=== PATIENT | female | born 1945 | race Caucasian/White ===

== ENCOUNTER 2020-08-17 10:40 | Outpatient (CLI) | payer OTHER, SELFPAY ==
[2020-08-17 11:07] LABS: Basophils Absolute Auto 0.1 K/mm3 (0.0-0.1); Basophils Percent Auto 0.6 % (0.2-1.2); Eosinophils Absolute Auto 0.1 K/mm3 (0-0.3); Eosinophils Percent Auto 0.8 % (0-4.4); Hematocrit 39.7 % (37.0-47.0); Hemoglobin 13.2 g/dL (12.0-15.0); Immature Granulocyte Absolute 0.01 K/mm3 (0.00-0.031); Immature Granulocyte Percent A 0.1 % (0-0.5); Lymphocytes Absolute Auto 3.12 K/mm3 (0.9-3.2); Lymphocytes Percent Auto 37.5 % (18.3-44.2); Mean Corpuscular HGB Conc 33.2 g/dl (32-36); Mean Corpuscular Hemoglobin 30.4 pg (26-34); Mean Corpuscular Volume 91.5 fl (80-100); Mean Platelet Volume 10.2 fl (7.4-10.4); Monocytes Absolute Auto 0.5 K/mm3 (0.1-0.6); Monocytes Percent Auto 5.4 % (2.6-8.5); Neutrophils Absolute Auto 4.6 K/mm3 (1.3-6.7); Neutrophils Percent Auto 55.6 % (45.5-73.1); Platelet Count Result 211 k/mm3 (150-375); Red Blood Count 4.34 M/mm3 (4.2-5.4); Red Cell Distribution Width 13.2 % (11.5-14.5); White Blood Count 8.3 K/mm3 (4.5-10.0)
[2020-08-17 11:20] LABS: Alanine Aminotransferase 17 U/L (4-35); Albumin Level 4.4 g/dL (3.5-5.1); Alkaline Phosphatase 84 U/L (38-126); Anion Gap 8 mmol/L (8-16); Aspartate Amino Transferase 28 U/L (14-36); Bilirubin,Total 0.5 mg/dL (0.2-1.3); Blood Urea Nitrogen 19 mg/dL (7-17); Calcium 9.1 mg/dL (8.4-10.2); Carbon Dioxide 27 mmol/L (22-30); Chloride 104 mmol/L (98-107); Cholesterol 187 mg/dL (0-200); Estimated Glomerular Filt Rate > 60; Glucose 106 mg/dL (65-105); HDL Direct 42 mg/dL; Potassium 4.5 mmol/L (3.4-5.0); Sodium 139 mmol/L (137-145); Triglycerides 346 mg/dL (<150)
[2020-08-17 11:32] LABS: LDL Cholesterol Direct 73 mg/dL
[2020-08-21 10:05] LABS: Vitamin D 1,25 (OH)2 Total 54 pg/mL (18-72); Vitamin D2 1,25 (OH)2 24 pg/mL; Vitamin D3 1,25 (OH)2 30 pg/mL
== END 2020-08-17 10:41 | disposition home or self-care (01) ==
PROVIDERS: PCP Family Medicine; Visit Provider Physician Assistant
DX: E78.2 Mixed hyperlipidemia (principal); I10 Essential (primary) hypertension; E55.9 Vitamin D deficiency, unspecified
CPT/HCPCS: 36415; 80053; 80061; 82652; 85025

== ENCOUNTER 2021-07-04 12:09 | Outpatient (CLI) | payer OTHER, SELFPAY ==
[2021-07-04 12:54] LABS: Basophils Absolute Auto 0.1 K/mm3 (0.0-0.1); Basophils Percent Auto 0.8 % (0.2-1.2); Eosinophils Percent Auto 0.5 % (0-4.4); Hematocrit 42.3 % (37.0-47.0); Hemoglobin 13.7 g/dL (12.0-15.0); Immature Granulocyte Absolute 0.02 K/mm3 (0.00-0.031); Immature Granulocyte Percent A 0.3 % (0-0.5); Lymphocytes Absolute Auto 1.94 K/mm3 (0.9-3.2); Lymphocytes Percent Auto 25.7 % (18.3-44.2); Mean Corpuscular HGB Conc 32.4 g/dl (32-36); Mean Corpuscular Hemoglobin 31.1 pg (26-34); Mean Corpuscular Volume 96.1 fl (80-100); Mean Platelet Volume 10.5 fl (7.4-10.4); Monocytes Absolute Auto 0.5 K/mm3 (0.1-0.6); Monocytes Percent Auto 6.6 % (2.6-8.5); Neutrophils Percent Auto 66.1 % (45.5-73.1); Platelet Count Result 188 k/mm3 (150-375); Red Cell Distribution Width 13.3 % (11.5-14.5); White Blood Count 7.5 K/mm3 (4.5-10.0)
[2021-07-04 13:08] LABS: Alanine Aminotransferase 18 U/L (4-35); Albumin Level 4.2 g/dL (3.5-5.1); Alkaline Phosphatase 77 U/L (38-126); Anion Gap 6 mmol/L (8-16); Aspartate Amino Transferase 29 U/L (14-36); Bilirubin,Total 0.4 mg/dL (0.2-1.3); Blood Urea Nitrogen 14 mg/dL (7-17); Carbon Dioxide 24 mmol/L (22-30); Chloride 108 mmol/L (98-107); Cholesterol 269 mg/dL (0-200); Estimated Glomerular Filt Rate > 60; Glucose 100 mg/dL (65-110); HDL Direct 59 mg/dL; Potassium 4.7 mmol/L (3.4-5.0); Sodium 138 mmol/L (137-145); Triglycerides 279 mg/dL (<150)
[2021-07-04 13:19] LABS: LDL Cholesterol Direct 127 mg/dL
[2021-07-07 09:54] LABS: Vitamin D 1,25 (OH)2 Total 45 pg/mL (18-72); Vitamin D2 1,25 (OH)2 <8 pg/mL; Vitamin D3 1,25 (OH)2 45 pg/mL
== END 2021-07-04 12:10 | disposition home or self-care (01) ==
PROVIDERS: PCP Family Medicine; Visit Provider Physician Assistant
DX: E78.2 Mixed hyperlipidemia (principal); F33.1 Major depressive disorder, recurrent, moderate; F41.1 Generalized anxiety disorder; I10 Essential (primary) hypertension; E55.9 Vitamin D deficiency, unspecified
CPT/HCPCS: 36415; 80053; 80061; 82652; 84443; 85025

== ENCOUNTER 2022-01-06 19:42 | Emergency (ER) | payer OTHER, SELFPAY ==
[2022-01-06] VITALS (15 sets, daily range): BP systolic 142–167; BP diastolic 76–90; PULSE 96–110; RESP 15–25; TEMP 37.1; O2SAT 94–100
--- NOTE | ~2022-01-06 | XR_ITS ---
XR chest 2V DATE: 01/06/2022 20:21 INDICATION: Cough, shortness of breath. History of bronchitis, emphysema, hypertension TECHNIQUE: PA and lateral views COMPARISON: 10/07/2014 portable AP chest FINDINGS: Prominently calcified bilateral breast implants. Bilateral hyperinflation and relative flat tening of the diaphragm, increased retrosternal airspace, consistent with COPD. No pulmonary infiltrate or consolidation, pleural effusion or pulmonary vascular congestion or pneumo thorax is detected. Heart size appears within normal range. Is aortic calcification. No hilar or mediastinal enlargement. Levoscoliosis of the thoracic spine and dextroscoliosis of the lumbar spine. Diffuse osteopenia. IMPRESSION: COPD Aortic atherosclerosis No active pulmonary disease Reviewed, dictated and finalized at location A.
--- NOTE | 2022-01-06 19:53 | ECG_ITS ---
Measurements Intervals [place] Rate: 98 P: 35 MN: 178 QRS: 31 QRSD: 67 T: 46 QT: 321 QTc: 410 Interpretive Statements SINUS RHYTHM WITH SINUS ARRHYTHMIA NONSPECIFIC ST CHANGES NO PREVIOUS ECG AVAILABLE FOR COMPARISON Electronically Signed On 01-07-2022 12:06:31 CDT by [place] Malcolm M.D.
[2022-01-06 20:16] LABS: Basophils Percent Auto 0.2 % (0.2-1.2); Eosinophils Percent Auto 0.1 % (0-4.4); Hemoglobin 12.6 g/dL (12.0-15.0); Immature Granulocyte Absolute 0.03 K/mm3 (0.00-0.031); Immature Granulocyte Percent A 0.2 % (0-0.5); Lymphocytes Absolute Auto 3.21 K/mm3 (0.9-3.2); Lymphocytes Percent Auto 25.6 % (18.3-44.2); Mean Corpuscular HGB Conc 33.2 g/dl (32-36); Mean Corpuscular Hemoglobin 31.1 pg (26-34); Mean Corpuscular Volume 93.8 fl (80-100); Mean Platelet Volume 10.1 fl (7.4-10.4); Monocytes Absolute Auto 0.7 K/mm3 (0.1-0.6); Monocytes Percent Auto 5.7 % (2.6-8.5); Neutrophils Absolute Auto 8.5 K/mm3 (1.3-6.7); Neutrophils Percent Auto 68.2 % (45.5-73.1); Platelet Count Result 197 k/mm3 (150-375); Red Blood Count 4.05 M/mm3 (4.2-5.4); Red Cell Distribution Width 13.2 % (11.5-14.5); White Blood Count 12.5 K/mm3 (4.5-10.0)
[2022-01-06 20:27] LABS: Alanine Aminotransferase 21 U/L (4-35); Alkaline Phosphatase 89 U/L (38-126); Anion Gap 6 mmol/L (8-16); Aspartate Amino Transferase 29 U/L (14-36); Bilirubin,Total 0.4 mg/dL (0.2-1.3); Blood Urea Nitrogen 20 mg/dL (7-17); Calcium 8.5 mg/dL (8.4-10.2); Carbon Dioxide 25 mmol/L (22-30); Chloride 109 mmol/L (98-107); Estimated CRCL calculation 42 ml/min; Estimated Glomerular Filt Rate > 60; Glucose 102 mg/dL (65-110); Potassium 3.8 mmol/L (3.4-5.0); Sodium 140 mmol/L (137-145)
--- NOTE | 2022-01-06 20:47 | PC.NURSE ---
Patient refused IV at this time.
[2022-01-06] MEDS: predniSONE 20 MG TABLET 60 MG PO (21:14)
[2022-01-06] MEDS: ALBUTEROL SULFATE NEB 2.5 MG/0.5 ML INH 5 MG INHALATION (21:28)
[2022-01-06] MEDS: IPRATROPIUM BR 0.02% INH SOLN 0.5 MG/2.5 ML VIAL INHALATION (21:28)
--- NOTE | 2022-01-06 22:17 | ED.SOB ---
HPI - SOB/Dyspnea General Chief Complaint: Shortness of Breath/Dyspnea Stated Complaint: Shortness of breath Time Seen by Provider: 01/06/22 20:51 Source: patient History of Present Illness HPI Narrative: Patient presents with shortness of breath reports a history of COPD. Reports has had bronchitis for the past few weeks was initially doing well however over the past 2 days her symptoms got progressively worse and feels like he cannot get enough air so she came to the ER for evaluation and reports mild cough denies any focal areas of pain abdominal pain denies any fever she does report congestion denies any nausea vomiting or diarrhea. Denies any known sick contacts he took some home Covid test which were negative. Related Data Home Medications Medication Instructions Recorded Confirmed aspirin 81 mg tablet,delayed 81 mg PO DAILY 11/01/19 10/17/21 release calcium carbonate 215 mg calcium 215 mg PO BID 11/01/19 10/17/21 (500 mg) chewable tablet cholecalciferol (vitamin D3) 25 25 mcg PO DAILY 07/04/21 10/17/21 mcg (1,000 unit) capsule ibuprofen-diphenhydramine citrate 2 cap PO QHS 07/04/21 10/17/21 200 mg-38 mg tablet Allergies Allergy/AdvReac Type Severity Reaction Status Date / Time tramadol Allergy Unknown Itching Verified 10/17/21 11:23 Review of Systems Review of Systems: CONSTITUTIONAL: Denies fever, chills, or sweats. EYES: Denies visual changes, redness, or discharge. ENT: Denies rhinorrhea, congestion, sore throat, or otalgia. CARDIOVASCULAR: Denies chest pain, palpitations, or edema. RESPIRATORY: Reports cough and shortness of breath GASTROINTESTINAL: Denies abdominal pain, nausea, vomiting, or diarrhea. GENITOURINARY: Denies dysuria or hematuria. SKIN: Denies rash or itching. MUSCULOSKELETAL: Denies back pain, joint pain, or myalgia. NEUROLOGIC: Denies headache, numbness, dizziness, or weakness. PSYCHIATRIC: Denies anxiety or depression. All systems reviewed & are unremarkable except as noted in HPI and below PMFSH Past Medical History Medical History Ambulatory dysfunction Atherosclerosis of aorta Atherosclerotic heart disease of [place] coronary artery without angina pectoris Benign essential hypertension Bilateral carotid bruits Chronic obstructive pulmonary disease, unspecified Emphysema of lung Generalized anxiety disorder History of [place] (myocardial infarction) Insomnia Irritable bowel syndrome with diarrhea MDD (major depressive disorder), recurrent episode, moderate Mixed hyperlipidemia Osteoporosis Tobacco use disorder Vitamin D deficiency, unspecified Surgical History Surgical History Presence of right artificial hip joint Family History Family History Mother Family history of premature coronary heart disease, Onset Age: 74 Other Family history of elevated blood lipids Family history of heart disease in male family member before age 55 Family history of obesity Hypertension Social History Social History Social History: Smoking packs per day: 1 Smoking cigarettes per day: 20.0 Years smoked: 25 Smoking pack-years: 25.00 Smoking status: Current every day smoker Tobacco type: cigarettes Second hand tobacco smoke exposure: Yes Additional smoking assessment comments: pt started smoking again Alcohol intake: never Substance use: never Substance use type: does not use Gender identity (if verbalized by the patient): Female Sexual Orientation (if Verbalized by the Patient): Straight or Heterosexual Exam Narrative: GENERAL: Well-appearing, well-nourished, and in no acute distress. HEAD: Normocephalic, atraumatic. EYES: PERRLA and EOMI. ENT: Nares clear, no rhinorrhea or epistaxis. Mucous membranes moist. NECK: Supple.
== END 2022-01-06 22:39 | disposition home or self-care (01) ==
PROVIDERS: Emergency Provider Emergency Medicine; PCP Family Medicine
DX: J44.1 Chronic obstructive pulmonary disease with (acute) exacerbation (principal); I25.10 Atherosclerotic heart disease of native coronary artery without angina pectoris; I25.2 Old myocardial infarction; I70.0 Atherosclerosis of aorta; I10 Essential (primary) hypertension; K58.0 Irritable bowel syndrome with diarrhea; M81.0 Age-related osteoporosis without current pathological fracture; E55.9 Vitamin D deficiency, unspecified; Z96.641 Presence of right artificial hip joint; Z79.82 Long term (current) use of aspirin; F17.210 Nicotine dependence, cigarettes, uncomplicated
CPT/HCPCS: 36415; 71046; 80053; 85025; 93005; 94640; 99284; J7512

== ENCOUNTER 2022-01-13 15:42 | Outpatient (CLI) | payer OTHER, SELFPAY ==
[2022-01-13 16:37] LABS: Add Urine Microscopic? YES; Appearance Urine Cloudy (Clear); Bilirubin Urine Negative (Negative); Blood Urine 3+ (Negative); Color Urine Yellow (Yellow); Glucose Urine UA Negative (Negative); Ketones Urine Negative (Negative); Leukocyte Esterase Ur Trace LEU/UL (Negative); Mucus Urine Rare /lpf; Nitrate Urine Negative (Negative); Protein Urine 2+ mg/dL (Negative); RBC Urine >75 /hpf (0-2); Specific Grav Ur 1.014 (1.001-1.035); Squamous Epithelial Cell Urine Rare /hpf (Few); Urobilinogen Urine Negative mg/dL (<2.0); WBC Urine 16-20 /hpf
== END 2022-01-13 15:43 | disposition home or self-care (01) ==
LOC: ANHLAB 15:44
PROVIDERS: PCP Family Medicine; Visit Provider Nurse Practitioner Gerontology
DX: R30.0 Dysuria (principal)
CPT/HCPCS: 81001; 87077; 87086; 87186

== ENCOUNTER 2022-05-30 14:08 | Outpatient (CLI) | payer OTHER, SELFPAY ==
[2022-05-30 14:33] LABS: Basophils Absolute Auto 0.1 K/mm3 (0.0-0.1); Basophils Percent Auto 0.8 % (0.2-1.2); Eosinophils Percent Auto 0.4 % (0-4.4); Hematocrit 38.6 % (37.0-47.0); Hemoglobin 12.2 g/dL (12.0-15.0); Immature Granulocyte Absolute 0.03 K/mm3 (0.00-0.031); Immature Granulocyte Percent A 0.4 % (0-0.5); Lymphocytes Percent Auto 34.2 % (18.3-44.2); Mean Corpuscular HGB Conc 31.6 g/dl (32-36); Mean Corpuscular Hemoglobin 29.8 pg (26-34); Mean Corpuscular Volume 94.4 fl (80-100); Mean Platelet Volume 10.5 fl (7.4-10.4); Monocytes Absolute Auto 0.5 K/mm3 (0.1-0.6); Monocytes Percent Auto 7.4 % (2.6-8.5); Neutrophils Absolute Auto 4.2 K/mm3 (1.3-6.7); Neutrophils Percent Auto 56.8 % (45.5-73.1); Platelet Count Result 199 k/mm3 (150-375); Red Blood Count 4.09 M/mm3 (4.2-5.4); Red Cell Distribution Width 13.5 % (11.5-14.5); White Blood Count 7.3 K/mm3 (4.5-10.0)
[2022-05-30 14:48] LABS: Alanine Aminotransferase 24 U/L (6-35); Albumin Level 4.2 g/dL (3.5-5.1); Alkaline Phosphatase 78 U/L (38-126); Anion Gap 11 mmol/L (8-16); Aspartate Amino Transferase 29 U/L (14-36); Bilirubin,Total 0.4 mg/dL (0.2-1.3); Blood Urea Nitrogen 19 mg/dL (7-17); Calcium 9.1 mg/dL (8.4-10.2); Carbon Dioxide 23 mmol/L (22-30); Chloride 102 mmol/L (98-107); Estimated Glomerular Filt Rate > 60; Glucose 104 mg/dL (65-110); Potassium 4.4 mmol/L (3.4-5.0); Sodium 136 mmol/L (137-145)
== END 2022-05-30 14:09 | disposition home or self-care (01) ==
LOC: ANHLAB 14:10
PROVIDERS: PCP Family Medicine; Visit Provider Nurse Practitioner Gerontology
DX: F41.1 Generalized anxiety disorder (principal); I10 Essential (primary) hypertension
CPT/HCPCS: 36415; 80053; 84443; 85025

== ENCOUNTER 2022-06-13 13:27 | Outpatient (CLI) | payer OTHER, SELFPAY ==
--- NOTE | ~2022-06-13 | CT_ITS ---
EXAMINATION: CT lung screening DATE: 06/13/2022 13:46 INDICATION: Personal history of nicotine dependence, prior smoker with 30 pack year history TECHNIQUE: Computed tomography (CT) of the chest was performed without intravenous contrast. The dose -length product (DLP) was 64.08 mGy-cm. 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 COMPARISON: 10/03/2014 FINDINGS: There is severe emphysema. There is a 4 mm nodule in the left upper lobe on image 34. There is a 3 mm nodule of the right middle lobe on image 67. No pleural effusion or pneumothorax. No patho logically enlarged thoracic lymph nodes are identified. The heart size is normal. Bilateral breast im plants are noted. There is calcified coronary artery atherosclerosis. There is lipomatous hypertrophy of the interatrial septum. Cysts of the visualized liver measure up to 2 cm. There is moderate thora cic spondylosis. IMPRESSION: 1. Lung-RADS category 2: Benign appearance or behavior. Continue annual screening with noncontrast lo w-dose chest CT in 12 months. Reviewed, dictated and finalized at location A. IMPRESSION: 1. Lung-RADS category 2: Benign appearance or behavior. Continue annual screeni ng with noncontrast low-dose chest CT in 12 months.
== END 2022-06-13 13:28 | disposition home or self-care (01) ==
PROVIDERS: PCP Family Medicine; Visit Provider Nurse Practitioner Gerontology
DX: Z12.2 Encounter for screening for malignant neoplasm of respiratory organs (principal); Z87.891 Personal history of nicotine dependence
CPT/HCPCS: 71271

== ENCOUNTER 2022-07-10 10:26 | Outpatient (CLI) | payer OTHER, SELFPAY ==
--- NOTE | ~2022-07-10 | US_ITS ---
EXAMINATION: US carotid duplex BI DATE: 07/10/2022 11:06 INDICATION: Carotid artery atherosclerosis and stenosis. TECHNIQUE: Grayscale, color Doppler, and pulsed Doppler images of the cervical carotid arteries were obtained. The degree of vessel stenosis is placed in one of the following categories: normal, <50%, 5 0-69%, >=70% but less than near-occlusion, near-occlusion, or total occlusion. Note that percent sten osis relative to normal distal artery lumen diameter is indirectly measured from velocity measurement s as described by Ady, et al. Radiology 2003; 229:340-346. COMPARISON: 02/16/2017 FINDINGS: RIGHT: The right common carotid artery (CCA) peak systolic velocity (PSV) is 81 cm/s. The right internal car otid artery (ICA) PSV is 119 cm/s. The right ICA end-diastolic velocity (EDV) is 31 cm/s. The right I CA/CCA PSV ratio is 1.5. Grayscale and color Doppler images yield an estimate of <50% diameter reduct ion from plaque in the ICA. The external carotid artery (ECA) PSV is 184 cm/s. There is antegrade michelle w in the right vertebral artery. LEFT: The left CCA PSV is 77 cm/s. The left ICA PSV is 190 cm/s. The left ICA EDV is 51 cm/s. The left ICA/ CCA PSV ratio is 2.5. Grayscale and color Doppler images yield an estimate of 50-69% diameter reducti on from plaque in the ICA. The ECA PSV is 234 cm/s. There is antegrade flow in the left vertebral art claudette. IMPRESSION: 1. <50% stenosis in the right internal carotid artery. 2. 50-69% stenosis in the left internal carotid artery. Reviewed, dictated and finalized at location A.
== END 2022-07-10 10:27 | disposition home or self-care (01) ==
PROVIDERS: PCP Family Medicine; Visit Provider Nurse Practitioner Gerontology
DX: I65.23 Occlusion and stenosis of bilateral carotid arteries (principal)
CPT/HCPCS: 93880

== ENCOUNTER → 2022-08-07 09:09 | Outpatient (CLI) | payer OTHER, SELFPAY ==
--- NOTE | ~2022-08-07 | MM_ITS ---
EXAMINATION: MM scrn rubina implant BI w jacque HISTORY: Screening mammogram TECHNIQUE: Craniocaudal and mediolateral oblique 3-D tomosynthesis images with implant displacement a nd synthetic 2-D images were generated. Craniocaudal and mediolateral oblique views of the breasts wi thout implant displacement were obtained using full field digital mammography. CAD analysis was submi tted and interpreted. COMPARISON: Comparison to multiple prior studies sequentially, with oldest reviewed study dated 05/2014. BREAST PARENCHYMAL COMPOSITION: The breasts are heterogeneously dense, which may obscure small masses . FINDINGS: There are stable benign-appearing bilateral breast calcifications. There are subglandular s ilicone implants. There is no evidence of suspicious mass, calcification, or architectural distortion to suggest malignancy in either breast. There has been no suspicious interval change. IMPRESSION: 1. No mammographic evidence of malignancy. 2. Recommend routine screening mammography in one year. BI-RADS Category 2: Benign finding(s). Reviewed, dictated and finalized at location A.
== END ==
PROVIDERS: PCP Family Medicine; Visit Provider Physician Assistant
DX: Z12.31 Encounter for screening mammogram for malignant neoplasm of breast (principal); Z78.0 Asymptomatic menopausal state
CPT/HCPCS: 77063; 77067

== ENCOUNTER 2022-10-08 13:30 | Outpatient (CLI) | payer OTHER, SELFPAY ==
[2022-10-08 14:10] LABS: Bacteria Urine Trace /hpf; Squamous Epithelial Cell Urine Rare /hpf (Few); WBC Urine >75 /hpf
[2022-10-08 14:19] LABS: Add Urine Microscopic? YES; Appearance Urine Slightly Cloudy (Clear); Color Urine Red (Yellow)
== END 2022-10-08 13:31 | disposition home or self-care (01) ==
PROVIDERS: PCP Family Medicine; Visit Provider Nurse Practitioner Gerontology
DX: R30.0 Dysuria (principal)
CPT/HCPCS: 81001; 87086; 87088

== ENCOUNTER 2022-11-07 10:11 | Outpatient (CLI) | payer OTHER, SELFPAY ==
[2022-11-07 11:01] LABS: Alanine Aminotransferase 17 U/L (6-35); Albumin Level 4.3 g/dL (3.5-5.1); Alkaline Phosphatase 71 U/L (38-126); Anion Gap 5 mmol/L (8-16); Aspartate Amino Transferase 23 U/L (14-36); Bilirubin,Total 0.6 mg/dL (0.2-1.3); Blood Urea Nitrogen 13 mg/dL (7-17); Calcium 8.7 mg/dL (8.4-10.2); Carbon Dioxide 26 mmol/L (22-30); Chloride 109 mmol/L (98-107); Cholesterol 170 mg/dL (0-200); Estimated Glomerular Filt Rate > 60; Glucose 107 mg/dL (65-110); HDL Direct 50 mg/dL; Potassium 4.2 mmol/L (3.4-5.0); Sodium 140 mmol/L (137-145); Triglycerides 161 mg/dL (<150)
[2022-11-07 11:13] LABS: LDL Cholesterol Direct 71 mg/dL
== END 2022-11-07 10:12 | disposition home or self-care (01) ==
LOC: ANHLAB 10:14
PROVIDERS: PCP Family Medicine; Visit Provider Nurse Practitioner Gerontology
DX: E78.2 Mixed hyperlipidemia (principal)
CPT/HCPCS: 36415; 80053; 80061

== ENCOUNTER → 2022-12-11 13:47 | Outpatient (CLI) | payer OTHER, SELFPAY ==
--- NOTE | ~2022-12-11 | DEXA_ITS ---
Bone Density Report Name: MORIS CURTIS I Age: 77 Sex: Female Ethnicity: White Date of : 1945 Indication: postmenopausal osteoporosis; monitoring treatment; parental hip fracture; prior fracture; asthma or emphysema; hysterectomy; Referring Provider: BRANDEN SMALL Study: Bone densitometry was performed. Exam Date: December 11, 2022 Accession number: [id number] Bone Density: Region BMD T-score Z-score Classification AP Spine (L1-L4) 0.876 -1.6 1.0 Osteopenia Femoral Neck (Left) 0.521 -3.0 -0.7 Osteoporosis Total Hip (Left) 0.667 -2.3 -0.3 Osteopenia World Health Organization criteria for BMD impression classify patients as: Normal (T-score at or above -1.0), Osteopenia (T-score between -1.0 and -2.5), or Osteoporosis (T-score at or below -2.5). 10-year Fracture Risk: FRAX not reported because: Some T-score for Spine Total or Hip Total or Femoral Neck at or below -2.5 Prior hip or vertebral fracture Treated for osteopor Previous Exams: Region Exam Age BMD T-score BMD Change BMD Change Date g/cm2 vs Baseline vs Previous AP Spine(L1-L4) 12/11/2022 77 0.876 -1.6 0.106* 0.106* 07/03/2014 68 0.769 -2.5 Total Hip(Left) 12/11/2022 77 0.667 -2.3 0.019 0.017 04/16/2018 72 0.650 -2.4 0.002 0.002 07/03/2014 68 0.648 -2.4 *Denotes significance at 95% confidence level, LSC for AP Spine = 0.022 g/cm2, LSC for Total Hip = 0.027 g/cm2 Clinical Information Provided by Patient: Have had a previous hip or vertebral fracture Has had a low trauma fracture Parent has had a hip fracture Smokes Is being treated for osteoporosis Has used the following medications: Evista (i.e. raloxifene), Vitamin D, Calcium Has the following medical conditions: Asthma or Emphysema, Hysterectomy Patient maximum height was 62 Menopause Age: 46 Does not regularly consume dairy products Drinks caffeinated beverages Onset of menses at age 13 Number of children 1 Impression: The patient has established osteoporosis, based on the Left Femoral Neck T-score and the existence of a prior fracture. The patient has risk factors, including: parental hip fracture, smoking, previous fracture. No significant bone loss was observed. Discussion: PATIENT UNDER TREATMENT WITH NO SIGNIFICANT BMD LOSS SINCE LAST EXAM. In an untreated patient, BMD typically declines with age. A lack of decline or gain is usually a sign that treatment is efficacious and fracture risk is reduced. It is important to
== END ==
PROVIDERS: PCP Family Medicine; Visit Provider Physician Assistant
DX: Z78.0 Asymptomatic menopausal state (principal); M85.89 Other specified disorders of bone density and structure, multiple sites; M81.0 Age-related osteoporosis without current pathological fracture
CPT/HCPCS: 77080

== ENCOUNTER → 2023-01-17 12:02 | Emergency (ER) | payer OTHER, SELFPAY ==
[2023-01-17] VITALS (12 sets, daily range): BP systolic 74–144; BP diastolic 51–102; PULSE 81–95; RESP 16–33; TEMP 36.9; O2SAT 88–96
--- NOTE | ~2023-01-17 | XR_ITS ---
EXAMINATION: XR chest 1V portable INDICATION: Cough and wheezing TECHNIQUE: Portable AP chest at 1305 hours COMPARISON: 01/06/2022 FINDINGS: The lungs are hyperinflated but free of acute opacities. No pleural effusion or pneumothora x. The cardiomediastinal silhouette is normal. Bilateral breast implants are noted. IMPRESSION: 1. Emphysema Reviewed, dictated and finalized at location A. IMPRESSION: 1. Emphysema
--- NOTE | 2023-01-17 12:17 | ECG_ITS ---
Measurements Intervals [place] Rate: 87 P: -25 DE: 155 QRS: 19 QRSD: 68 T: 52 QT: 330 QTc: 399 Interpretive Statements SINUS RHYTHM ATRIAL PREMATURE COMPLEX BASELINE ARTIFACT- II, III, AVF, V4-V6 BORDERLINE ECG COMPARED TO ECG 01/06/2022 20:02:14 NO SIGNIFICANT CHANGES Electronically Signed On 01-17-2023 16:30:10 CDT by Landon Ruano D.O.
[2023-01-17 12:48] LABS: Basophils Absolute Auto 0.1 K/mm3 (0.0-0.1); Basophils Percent Auto 0.4 % (0.2-1.2); Eosinophils Percent Auto 0.3 % (0-4.4); Hematocrit 39.8 % (37.0-47.0); Hemoglobin 13.2 g/dL (12.0-15.0); Immature Granulocyte Absolute 0.05 K/mm3 (0.00-0.031); Immature Granulocyte Percent A 0.4 % (0-0.5); Lymphocytes Absolute Auto 2.49 K/mm3 (0.9-3.2); Lymphocytes Percent Auto 20.7 % (18.3-44.2); Mean Corpuscular HGB Conc 33.2 g/dl (32-36); Mean Corpuscular Hemoglobin 30.7 pg (26-34); Mean Corpuscular Volume 92.6 fl (80-100); Mean Platelet Volume 10.2 fl (7.4-10.4); Monocytes Absolute Auto 1.2 K/mm3 (0.1-0.6); Monocytes Percent Auto 9.9 % (2.6-8.5); Neutrophils Absolute Auto 8.2 K/mm3 (1.3-6.7); Neutrophils Percent Auto 68.3 % (45.5-73.1); Platelet Count Result 191 k/mm3 (150-375); Red Cell Distribution Width 13.5 % (11.5-14.5); White Blood Count 12.1 K/mm3 (4.5-10.0)
[2023-01-17 13:01] LABS: Alanine Aminotransferase 25 U/L (6-35); Albumin Level 4.1 g/dL (3.5-5.1); Alkaline Phosphatase 90 U/L (38-126); Anion Gap 5 mmol/L (8-16); Aspartate Amino Transferase 29 U/L (14-36); Bilirubin,Total 0.6 mg/dL (0.2-1.3); Blood Urea Nitrogen 12 mg/dL (7-17); Calcium 8.5 mg/dL (8.4-10.2); Carbon Dioxide 28 mmol/L (22-30); Chloride 104 mmol/L (98-107); Estimated CRCL calculation 51 ml/min; Estimated Glomerular Filt Rate > 60; Glucose 129 mg/dL (65-110); Sodium 137 mmol/L (137-145)
--- NOTE | 2023-01-17 13:18 | ED.SOB ---
HPI - SOB/Dyspnea General Chief Complaint: Shortness of Breath/Dyspnea Stated Complaint: bronchitis Time Seen by Provider: 01/17/23 12:20 History of Present Illness HPI Narrative: This is a 77-year-old female with past medical history of emphysema, presenting to the emergency department complaining of cough for the past week. She denies any known sick contacts. The cough is nonproductive and nonbloody. She denies fevers, abdominal pain, vomiting, diarrhea or chest pain. Related Data Home Medications Medication Instructions Recorded Confirmed aspirin 81 mg tablet,delayed 81 mg PO DAILY 11/01/19 11/25/22 release (Adult Low Dose Aspirin) calcium carbonate 215 mg calcium 215 mg PO BID 11/01/19 11/25/22 (500 mg) chewable tablet (Antacid Calcium) cholecalciferol (vitamin D3) 25 25 mcg PO DAILY 07/04/21 11/25/22 mcg (1,000 unit) capsule Allergies Allergy/AdvReac Type Severity Reaction Status Date / Time tramadol Allergy Unknown Itching Verified 01/17/23 12:16 Review of Systems Review of Systems: CONSTITUTIONAL: Denies fever, chills, or sweats. ENT: Denies rhinorrhea, congestion, sore throat, or otalgia. CARDIOVASCULAR: Denies chest pain, palpitations, or edema. RESPIRATORY: Cough, 1 episode of dyspnea GASTROINTESTINAL: Denies abdominal pain, nausea, vomiting, or diarrhea. GENITOURINARY: Denies dysuria or hematuria. MUSCULOSKELETAL: Chronic back pain denies joint pain, or myalgia. NEUROLOGIC: Denies headache, numbness, dizziness, or weakness. PSYCHIATRIC: Denies anxiety or depression. [facility] Past Medical History Medical History Ambulatory dysfunction Atherosclerosis of aorta Atherosclerotic heart disease of [place] coronary artery without angina pectoris Benign essential hypertension Bilateral carotid bruits Chronic obstructive pulmonary disease, unspecified Emphysema of lung Generalized anxiety disorder History of [place] (myocardial infarction) Insomnia Irritable bowel syndrome with diarrhea MDD (major depressive disorder), recurrent episode, moderate Mixed hyperlipidemia Osteoporosis Tobacco use disorder Vitamin D deficiency, unspecified Surgical History Surgical History Presence of right artificial hip joint Family History Family History Mother Family history of premature coronary heart disease, Onset Age: 74 Other Family history of elevated blood lipids Family history of heart disease in male family member before age 55 Family history of obesity Hypertension Social History Social History Social History: Smoking packs per day: 1 Smoking cigarettes per day: 20.0 Years smoked: 25 Smoking pack-years: 25.00 Smoking status: Former smoker Tobacco type: cigarettes Second hand tobacco smoke exposure: Yes Smoking end date: 09/19/21 Alcohol intake: never Substance use: never Substance use type: does not use Living arrangements: with family Additional living arrangements comments: Pt and her brother live together. Occupation/Education: retired Gender identity (if verbalized by the patient): Female Sexual Orientation (if Verbalized by the Patient): Straight or Heterosexual Exam Narrative: GENERAL: Well-developed, well-nourished, and in no acute distress. HEAD: Normocephalic, atraumatic. EYES: PERRLA and EOMI. ENT: Nares clear, no rhinorrhea or epistaxis. Mucous membranes moist. Oropharynx without tonsillar hypertrophy exudate or other lesions. NECK: Supple. No adenopathy or masses. No carotid bruits or JVD CHEST: Clear to auscultation. No respiratory distress. No wheezes rales or rhonchi. Mild upper airway rhonchi noted HEART: Regular rate and rhythm. No murmur heard. Normal peripheral pulses. ABDOMEN: Soft, nontender, nondis
[2023-01-17] MEDS: ALBUTEROL SULFATE NEB 2.5 MG/3 ML INH INHALATION (13:30)
[2023-01-17] MEDS: IPRATROPIUM BR 0.02% INH SOLN 0.5 MG/2.5 ML VIAL 0.75 MG INHALATION (13:31)
[2023-01-17] MEDS: predniSONE 20 MG TABLET 40 MG PO (14:01)
[2023-01-17 14:02] LABS: Influenza A QL RT-PCR Negative (Negative); Influenza B QL RT-PCR Negative (Negative); SARS-CoV-2 RNA PCR Negative
[2023-01-17] MEDS: ACETAMINOPHEN 500 MG TABLET 1000 MG PO (14:45)
== END | disposition home or self-care (01) ==
PROVIDERS: Emergency Medicine; Emergency Provider Preventive Medicine Aerospace Medicine; PCP Family Medicine
DX: J44.1 Chronic obstructive pulmonary disease with (acute) exacerbation (principal); Z79.82 Long term (current) use of aspirin; E78.2 Mixed hyperlipidemia; Z87.891 Personal history of nicotine dependence; Z20.822 Contact with and (suspected) exposure to COVID-19
CPT/HCPCS: 36415; 71045; 80053; 85025; 87636; 93005; 94640; 99283; A9270; J7512

== ENCOUNTER 2023-03-27 14:36 | Outpatient (CLI) | payer OTHER, SELFPAY ==
--- NOTE | 2023-03-28 09:31 | WPDSIXMINUTE ---
Six Minute Walk Procedure Procedure Performed Pulmonary Stress Test (6 min walk) Six Minute Walk Six Minute Walk: This is a 6 minute walk test. The test was performed and interpreted in accordance with the 2014 ERS/ATS task force guidelines. Of note the patient used to walking a due to a hip injury. Findings: The patient's resting room air oxygen saturation measured by pulse oximetry was 94% and heart rate was 59 bpm. Patient ambulated for 183 meters and oxygen saturation remained 89 to 95%. Heart rate at the end of the study was 82 bpm. The patient did not qualify for supplemental oxygen at rest or with ambulation. There are no prior studies for comparison.
--- NOTE | 2023-03-28 09:33 | WPDPFTINT ---
PFT Procedure Performed PFT Procedure Performed Spirometry with Pre/Post Bronchodilator Diffusing Cap (DLCO) Flow Vol Loop PFT Interpretation This is a pulmonary function test with pre and post-bronchodilator spirometry, and plethysmography. The test was performed and results interpreted in accordance with the 2019 and 2005 ATS/ERS Task Force guidelines respectively using the Global Lung Function Initiative-2012 reference equations. Patient demonstrated good effort and cooperation. Reproducibility criteria were met. The quality of the pre bronchodilator spirometry maneuver was Grade A and post bronchodilator spirometry maneuver was Grade A. Of note the patient was unable to perform DLCO after multiple attempts. Findings: Spirometry: There is decreased maximal expiratory airflow at all lung volumes with concave expiratory flow tracing. The contour the inspiratory flow tracing is normal. The pre bronchodilator FVC is 2.55 L, 109% predicted. The pre bronchodilator FEV1 is 1.24 L, 69% predicted. The pre bronchodilator FEV1: FVC ratio is 48%. The post bronchodilator FVC is 2.53 L, representing a 1% decrease. The post bronchodilator FEV1 is 1.41 L, representing a 170 mL increased which corresponds to a 14% increase. The post bronchodilator FEV1: FVC ratio is 55%. Plethysmography: The total lung capacity is 4.43 L, 96% predicted. The functional residual capacity is 2.68 L, 102% predicted. The residual volume is 1.88 L, 85% predicted. Impression: There is a mild obstructive abnormality without significant improvement after inhaling a single dose of albuterol as the absolute increase in the post bronchodilator FEV1 was less than 200 mL. The lung volumes are normal. There are no prior studies for comparison
== END 2023-03-27 14:37 | disposition home or self-care (01) ==
LOC: ANHPFT 14:36
PROVIDERS: PCP Family Medicine; Visit Provider Internal Medicine Pulmonary Disease
DX: J44.9 Chronic obstructive pulmonary disease, unspecified (principal); Z87.891 Personal history of nicotine dependence; R94.2 Abnormal results of pulmonary function studies
CPT/HCPCS: 94060; 94618; 94726; 94729

== ENCOUNTER 2023-06-15 09:24 | Outpatient (CLI) | payer OTHER, SELFPAY ==
--- NOTE | ~2023-06-15 | CT_ITS ---
EXAMINATION: CT lung screening DATE: 06/15/2023 09:54 INDICATION: Personal history of nicotine dependence TECHNIQUE: Computed tomography (CT) of the chest was performed without intravenous contrast. The dose -length product was 85.71 mGy-cm.. Automated exposure control and iterative reconstruction technique were employed. COMPARISON: None FINDINGS: Heart size normal. There are calcified bilateral breast implants. There is atherosclerosis of the aorta and coronary arteries. No evidence for aneurysm. Heart size normal. No significant pleur al or pericardial effusion. There is severe emphysema. There is a 7 mm right upper lobe nodule, image 37. There is a 7 mm apart solid nodule in the right upper lobe, image 30. There are additional small er right upper lobe nodules measuring 4 mm or less. There is dependent atelectasis. No endobronchial lesions. There is scoliosis. There is kyphosis. No acute osseous abnormality. IMPRESSION: 1. Lung-RADS category 3: Probably benign. Further evaluation is recommended with noncontrast low-dose chest CT in 6 months. Reviewed, dictated and finalized at location B. IMPRESSION: 1. Lung-RADS category 3: Probably benign. Further evaluation is recommended wit h noncontrast low-dose chest CT in 6 months.
== END 2023-06-15 09:25 | disposition home or self-care (01) ==
PROVIDERS: PCP Family Medicine; Visit Provider Physician Assistant
DX: Z12.2 Encounter for screening for malignant neoplasm of respiratory organs (principal); Z87.891 Personal history of nicotine dependence; R91.8 Other nonspecific abnormal finding of lung field
CPT/HCPCS: 71271

== ENCOUNTER 2023-08-18 10:42 | Outpatient (CLI) | payer OTHER, SELFPAY ==
[2023-08-18 11:13] LABS: Basophils Absolute Auto 0.1 K/mm3 (0.0-0.1); Basophils Percent Auto 0.8 % (0.2-1.2); Eosinophils Absolute Auto 0.2 K/mm3 (0-0.3); Eosinophils Percent Auto 1.9 % (0-4.4); Hematocrit 40.7 % (37.0-47.0); Hemoglobin 12.8 g/dL (12.0-15.0); Immature Granulocyte Absolute 0.03 K/mm3 (0.00-0.031); Immature Granulocyte Percent A 0.4 % (0-0.5); Lymphocytes Absolute Auto 3.24 K/mm3 (0.9-3.2); Lymphocytes Percent Auto 38.7 % (18.3-44.2); Mean Corpuscular HGB Conc 31.4 g/dl (32-36); Mean Corpuscular Volume 95.3 fl (80-100); Mean Platelet Volume 10.3 fl (7.4-10.4); Monocytes Absolute Auto 0.5 K/mm3 (0.1-0.6); Neutrophils Absolute Auto 4.4 K/mm3 (1.3-6.7); Neutrophils Percent Auto 52.2 % (45.5-73.1); Platelet Count Result 199 k/mm3 (150-375); Red Blood Count 4.27 M/mm3 (4.2-5.4); Red Cell Distribution Width 14.2 % (11.5-14.5); White Blood Count 8.4 K/mm3 (4.5-10.0)
[2023-08-18 11:28] LABS: Alanine Aminotransferase 18 U/L (6-35); Albumin Level 4.1 g/dL (3.5-5.1); Alkaline Phosphatase 69 U/L (38-126); Anion Gap 6 mmol/L (8-16); Aspartate Amino Transferase 26 U/L (14-36); Bilirubin,Total 0.6 mg/dL (0.2-1.3); Blood Urea Nitrogen 15 mg/dL (7-17); Calcium 8.5 mg/dL (8.4-10.2); Carbon Dioxide 25 mmol/L (22-30); Chloride 106 mmol/L (98-107); Cholesterol 165 mg/dL (0-200); Estimated Glomerular Filt Rate > 60; Glucose 101 mg/dL (65-110); HDL Direct 49 mg/dL; Potassium 4.1 mmol/L (3.4-5.0); Sodium 137 mmol/L (137-145); Triglycerides 167 mg/dL (<150)
[2023-08-18 11:39] LABS: LDL Cholesterol Direct 78 mg/dL
[2023-08-20 12:20] LABS: Amphetamines NEGATIVE ng/mL (<500); Barbiturates NEGATIVE ng/mL (<300); Benzodiazepines POSITIVE ng/mL (<100); Cocaine Metabolite NEGATIVE ng/mL (<150); Marijuana Metabolite NEGATIVE ng/mL (<20); Methadone Metabolite NEGATIVE ng/mL (<100); Opiates NEGATIVE ng/mL (<100); Oxidant NEGATIVE mcg/mL (<200); pH 5.9 (4.5-9.0)
== END 2023-08-18 10:43 | disposition home or self-care (01) ==
LOC: ANHLAB 10:43
PROVIDERS: PCP Family Medicine; Visit Provider Physician Assistant
DX: I25.10 Atherosclerotic heart disease of native coronary artery without angina pectoris (principal); I10 Essential (primary) hypertension; I65.29 Occlusion and stenosis of unspecified carotid artery; Z87.891 Personal history of nicotine dependence
CPT/HCPCS: 36415; 80053; 80061; 80307; 84443; 85025

== ENCOUNTER 2023-12-16 12:35 | Outpatient (CLI) | payer OTHER, SELFPAY ==
--- NOTE | ~2023-12-16 | CT_ITS ---
EXAMINATION:CT diagnostic chest wo con DATE: 12/16/2023 13:15 INDICATION: Other nonspecific abnormal finding in lung field. Lung nodule. TECHNIQUE: Computed tomography (CT) of the chest was performed without intravenous contrast. Automate d exposure control and iterative reconstruction technique were employed. The dose-length product (DLP ) was 69.28 mGy-cm. COMPARISON: Chest CT 06/15/2023, 06/13/22 FINDINGS: There is moderate emphysema. There is mild scarring at the lung apices. There is a stable 7 mm nodule in right upper lobe. There is a worsened 5 mm nodule in left upper lobe. There is a new 4 mm nodule left upper lobe. No pleural effusion. Aortic atherosclerosis is noted. There is lipomatous hypertrophy of the interatrial septum. There is left atrial enlargement of the heart. No pericardial effusion. There are coronary artery calcifications. Breast implants are noted. There are cysts in the liver measuring up to 3.0 cm . There is a 1.9 cm mass in right adrenal gland measuring low-attenuati on, consistent with an adenoma. There is kyphosis and levoscoliosis of thoracic spine. There is chron ic anterior wedging of multiple midthoracic vertebral bodies. There is severe mid thoracic spondylosi s. IMPRESSION: 1. Lung-RADS category 3: Probably benign. Further evaluation is recommended with noncontrast low-dose chest CT in 6 months. Reviewed, dictated and finalized at location E. WEAVER IMPRESSION: 1. Lung-RADS category 3: Probably benign. Further evaluation is recommended wit h noncontrast low-dose chest CT in 6 months.
== END 2023-12-16 12:36 | disposition home or self-care (01) ==
PROVIDERS: PCP Family Medicine; Visit Provider Physician Assistant
DX: R91.8 Other nonspecific abnormal finding of lung field (principal)
CPT/HCPCS: 71250

== ENCOUNTER 2024-04-29 14:42 | Outpatient (CLI) | payer OTHER, SELFPAY ==
--- NOTE | ~2024-04-29 | MM_ITS ---
EXAMINATION: MM screening rubina BI w jacque HISTORY: Screening TECHNIQUE: Craniocaudal and mediolateral oblique 3-D tomosynthesis images were obtained and synthetic 2-D images were generated. CAD analysis was submitted and interpreted. COMPARISON: Comparison to multiple prior studies sequentially, with oldest reviewed study dated 12/12. BREAST PARENCHYMAL COMPOSITION: Not dense: There are scattered areas of fibroglandular density. FINDINGS: There is no evidence of suspicious mass, calcification, or architectural distortion to sugg est malignancy in either breast. There has been no suspicious interval change. IMPRESSION: 1. No mammographic evidence of malignancy. 2. Recommend routine screening mammography in one year. BI-RADS Category 1: Negative Reviewed, dictated and finalized at location B.
== END 2024-04-29 14:43 | disposition home or self-care (01) ==
LOC: ANHIMG 15:03
PROVIDERS: PCP Family Medicine; Visit Provider Family Medicine
DX: Z12.31 Encounter for screening mammogram for malignant neoplasm of breast (principal)
CPT/HCPCS: 77063; 77067

== ENCOUNTER 2024-05-05 10:28 | Outpatient (CLI) | payer OTHER, SELFPAY ==
[2024-05-05 11:12] LABS: Basophils Absolute Auto 0.1 K/mm3 (0.0-0.1); Basophils Percent Auto 0.9 % (0.2-1.2); Eosinophils Absolute Auto 0.2 K/mm3 (0-0.3); Eosinophils Percent Auto 2.1 % (0-4.4); Hematocrit 40.3 % (37.0-47.0); Immature Granulocyte Absolute 0.02 K/mm3 (0.00-0.031); Immature Granulocyte Percent A 0.2 % (0-0.5); Lymphocytes Absolute Auto 2.17 K/mm3 (0.9-3.2); Lymphocytes Percent Auto 27.1 % (18.3-44.2); Mean Corpuscular HGB Conc 32.3 g/dl (32-36); Mean Corpuscular Hemoglobin 31.2 pg (26-34); Mean Corpuscular Volume 96.6 fl (80-100); Mean Platelet Volume 10.9 fl (7.4-10.4); Monocytes Absolute Auto 0.5 K/mm3 (0.1-0.6); Monocytes Percent Auto 6.6 % (2.6-8.5); Neutrophils Absolute Auto 5.1 K/mm3 (1.3-6.7); Neutrophils Percent Auto 63.1 % (45.5-73.1); Platelet Count Result 185 k/mm3 (150-375); Red Blood Count 4.17 M/mm3 (4.2-5.4); Red Cell Distribution Width 13.2 % (11.5-14.5)
[2024-05-05 11:27] LABS: Alanine Aminotransferase 17 U/L (6-35); Albumin Level 4.1 g/dL (3.5-5.1); Alkaline Phosphatase 73 U/L (38-126); Anion Gap 13 mmol/L (4-12); Aspartate Amino Transferase 29 U/L (14-36); Bilirubin,Total 0.6 mg/dL (0.2-1.3); Blood Urea Nitrogen 18 mg/dL (7-17); Calcium 8.6 mg/dL (8.4-10.2); Carbon Dioxide 24 mmol/L (22-30); Chloride 104 mmol/L (98-107); Cholesterol 154 mg/dL (0-200); Estimated Glomerular Filt Rate 53; Glucose 104 mg/dL (65-110); HDL Direct 48 mg/dL; Potassium 4.4 mmol/L (3.4-5.0); Sodium 141 mmol/L (137-145); Triglycerides 197 mg/dL (<150)
[2024-05-05 11:37] LABS: LDL Cholesterol Direct 77 mg/dL
== END 2024-05-05 10:29 | disposition home or self-care (01) ==
PROVIDERS: PCP Family Medicine; Visit Provider Physician Assistant
DX: E55.9 Vitamin D deficiency, unspecified (principal); E78.2 Mixed hyperlipidemia; I25.10 Atherosclerotic heart disease of native coronary artery without angina pectoris; I10 Essential (primary) hypertension
CPT/HCPCS: 36415; 80053; 80061; 85025

== ENCOUNTER 2024-06-16 13:35 | Outpatient (CLI) | payer OTHER, SELFPAY ==
--- NOTE | ~2024-06-16 | CT_ITS ---
EXAMINATION:CT diagnostic chest wo con DATE: 06/16/2024 14:06 INDICATION: Solitary pulmonary nodule. TECHNIQUE: Computed tomography (CT) of the chest was performed without intravenous contrast. Automate d exposure control and iterative reconstruction technique were employed. The dose-length product (DLP ) was 75.11 mGy-cm. COMPARISON: Chest CT 12/16/2023, 06/15/23 FINDINGS: There is severe emphysema. There is mild scarring at the lung apices. There is a stable 7 m m nodule in right upper lobe. There is mild atelectasis bilaterally. No pleural effusion. There is le ft atrial enlargement of the heart. There are coronary artery calcifications. No pericardial effusion . There are bilateral breast implants. There are cysts in the liver measuring up to 2.3 cm. There is chronic anterior wedging of T7 vertebral artery. There is severe thoracic and lumbar spondylosis. IMPRESSION: 1. Lung-RADS category 2: Benign appearance or behavior. Continue annual screening with noncontrast lo w-dose chest CT in 12 months. Reviewed, dictated and finalized at location A. IMPRESSION: 1. Lung-RADS category 2: Benign appearance or behavior. Continue annual screeni ng with noncontrast low-dose chest CT in 12 months.
== END 2024-06-16 13:36 | disposition home or self-care (01) ==
LOC: ANHIMG 13:38
PROVIDERS: PCP Family Medicine; Visit Provider Nurse Practitioner Family
DX: R91.1 Solitary pulmonary nodule (principal)
CPT/HCPCS: 71250

== ENCOUNTER 2024-09-09 13:54 | Outpatient (CLI) | payer OTHER, SELFPAY ==
--- NOTE | ~2024-09-09 | XR_ITS ---
EXAMINATION: XR knee LT 3V DATE: 09/09/2024 14:10 INDICATION: Pain in unspecified knee. TECHNIQUE: 3 views of left knee including standing views were obtained. COMPARISON: None. FINDINGS: Alignment is normal. No fracture. Joint spaces are normal. There is a small knee joint effu jeremias. IMPRESSION: 1. Small knee joint effusion. Reviewed, dictated and finalized at location A. [employer]INEERING TECHNICIAN
== END 2024-09-09 13:55 | disposition home or self-care (01) ==
PROVIDERS: PCP Family Medicine; Visit Provider Physician Assistant
DX: M25.462 Effusion, left knee (principal)
CPT/HCPCS: 73562

== ENCOUNTER 2025-01-07 07:24 | Inpatient (IN) | payer OTHER, SELFPAY ==
[2025-01-07] VITALS (35 sets, daily range): BP systolic 111–181; BP diastolic 51–83; PULSE 102–128; RESP 18–46; TEMP 36.2–36.7; O2SAT 86–100; BMI 27.5
--- NOTE | ~2025-01-07 | XR_ITS ---
Portable chest x-ray Comparison: 01/17/2023 Clinical History: Dyspnea Findings: There is bibasilar chronic interstitial disease and/or COPD change. No acute pulmonary abn ormality seen. Cardiomediastinal silhouette is stable. Bones and soft tissues are unremarkable. Impression: Bibasilar chronic interstitial disease and/or COPD change. Reviewed, dictated and finalized at location . Impression: Bibasilar chronic interstitial disease and/or COPD change.
--- NOTE | ~2025-01-07 | US_ITS ---
EXAMINATION:US venous doppler LE BI INDICATION:Varicose veins. Evaluate for DVT. TECHNIQUE: Multiple grayscale, color flow and Doppler images of the right and left lower extremity de ep venous systems were obtained and reviewed. COMPARISON:No prior studies for comparison. FINDINGS: The common femoral, superficial femoral and popliteal veins demonstrate normal respiratory variation, augmentation and compressibility. Color flow is also seen within the posterior tibial, pe roneal, greater saphenous and profunda veins. IMPRESSION: 1: No lower extremity deep venous thrombosis. Reviewed, dictated and finalized at location B.
--- NOTE | 2025-01-07 07:36 | ED_ITS ---
HPI - General Adult General Chief complaint: Shortness of Breath/Dyspnea Stated complaint: dyspnea Time Seen by Provider: 01/07/25 07:31 History of Present Illness HPI narrative: 79-year-old female with history of COPD and smoking presents to the emergency department for evaluation for worsening shortness of breath that started yesterday/last night. Patient denies any current chest pain but does have shortness of breath increased work of breathing and audible wheezing. Patient arrived by EMS. Patient was treated with a DuoNeb EN route did feel mildly improved. Patient was placed on BiPAP and did feel this significantly improved her work of breathing. Related Data Home Medications ?Medication ?Instructions ?Recorded ?Confirmed ?Last Taken ?Type aspirin 81 mg tablet,delayed 81 mg PO DAILY 11/01/19 01/07/25 Unknown History release (Adult Low Dose Aspirin) cholecalciferol (vitamin D3) 25 25 mcg PO DAILY 07/04/21 01/07/25 Unknown History mcg (1,000 unit) capsule bupropion HCl 150 mg tablet,12 hr 150 mg PO Q12H 01/07/25 01/07/25 Unknown History sustained-release fluticasone fur. 100 mcg-umeclid 1 inh inhalation DAILY 01/07/25 01/07/25 Unknown History 62.5 mcg-vilant 25 mcg inhalat.powder (Trelegy Ellipta) Allergies Allergy/AdvReac Type Severity Reaction Status Date / Time tramadol Allergy Unknown Itching Verified 01/07/25 07:48 sulfamethoxazole (From AdvReac Intermediate Nausea and Verified 01/07/25 07:48 Bactrim) Vomiting trimethoprim (From Bactrim) AdvReac Intermediate Nausea and Verified 01/07/25 07:48 Vomiting Review of Systems 2 Review of Systems: All systems reviewed & are unremarkable except as noted in HPI and below PMFSH Past Medical History Medical History (Updated 01/07/25 @ 14:22 by Paz Peres, DIOMEDES) Tobacco use disorder Insomnia Chronic obstructive pulmonary disease, unspecified Postmenopausal Irritable bowel syndrome with diarrhea Vitamin D deficiency, unspecified Osteoporosis Mixed hyperlipidemia Atherosclerosis of aorta Bilateral carotid bruits History of [place] (myocardial infarction) Atherosclerotic heart disease of [place] coronary artery without angina pectoris Generalized anxiety disorder MDD (major depressive disorder), recurrent episode, moderate Ambulatory dysfunction Emphysema of lung Benign essential hypertension Surgical History Surgical History Presence of right artificial hip joint Family History Family History Mother Family history of premature coronary heart disease, Onset Age: 74 Other Family history of elevated blood lipids Family history of heart disease in male family member before age 55 Family history of obesity Hypertension Social History Social History Social History: Smoking packs per day: 1 Smoking cigarettes per day: 20.0 Years smoked: 25 Smoking pack-years: 25.00 Smoking status: Current some day smoker Tobacco type: cigarettes Second hand tobacco smoke exposure: Yes Smoking end date: 09/19/21 Alcohol intake: never Substance use: never Substance use type: does not use Do You Feel Safe in your Home?: Yes Lack of Transportation: No Lack of Food: Never True Current Housing: I Have Housing Concerned About Future Housing: No Difficulty Paying Gas/Electric Bills: No Difficulty Paying for Meds: No Currently Unemployed: YES Education: Don't Know Difficulty w/ Childcare or Family Care: No Living arrangements: with family Additional living arrangements comments: Pt and her brother live together. Occupation/Education: retired Gender identity (if verbalized by the patient): Female Sexual Orientation (if Verbalized by the Patient): Straight or Heterosexual Exam 2 Narrative: APPEARANCE: Increased work of breathing. HEAD: normocephalic, atraumatic. EYES: PERRLA/EOMI, conjunctivae clear. NOSE: Normal no drainage EARS:TMS clear with good light reflex. THROAT: Pharynx clear, no exudate. NECK: Supple. No adenopathy, no masses. RESPIRATORY: Expiratory wheeze CARDIOVASCULAR: Regular rate and rhythm without murmurs rubs or gallops. ABDOMINAL: Soft, nontender, nondistended, normal bowel sounds MUSCULOSKELETAL: Moves all extremities. Strength/ROM intact, No edema, No calf tenderness. NEURO: Alert. Cranial nerves II through XII intact. SKIN: Warm, dry. Normal Color Course Vital Signs Vital signs: Vital Signs Temperature 97.2 F L 01/07/25 07:25 Pulse Rate 115 H 01/07/25 07:25 Respiratory Rate 32 H 01/07/25 07:25 Blood Pressure 181/81 H 01/07/25 07:25 Pulse Oximetry 86 L 01/07/25 07:25 Oxygen Delivery Room Air 01/07/25 07:25 Temperature 97.2 F L 01/07/25 07:25 Pulse Rate 109 H 01/07/25 17:34 Respiratory Rate 24 H 01/07/25 17:34 Blood Pressure 130/68 01/07/25 17:34 Pulse Oximetry 98 01/07/25 17:34 Oxygen Delivery BiPAP 01/07/25 14:54 Oxygen Flow Rate 3 01/07/25 07:35 Medical Decision Making MDM Narrative Medical decision making narrative: 79-year-old female present to the emergency department for evaluation for increased shortness of breath. Patient does have history of COPD and patient is having a current COPD exacerbation. Patient was afebrile does have a leukocytosis of 10.1 hemoglobin of 14.0. No significant abnormalities on her CMP UA was negative for infection patient was negative for influenza RSV and for COVID. Patient was started on Rocephin and azithromycin blood cultures are pending. Case was discussed with hospitalist patient was accepted for admission. Differential Diagnosis Differential Diagnosis: COVID, RSV, influenza, pneumonia, COPD Vital Signs Vital Signs: Vital Signs Temperature 97.2 F L 01/07/25 07:25 Pulse Rate 115 H 01/07/25 07:25 Respiratory Rate 32 H 01/07/25 07:25 Blood Pressure 181/81 H 01/07/25 07:25 Pulse Oximetry 86 L 01/07/25 07:25 Oxygen Delivery Room Air 01/07/25 07:25 Temperature 97.2 F L 01/07/25 07:25 Pulse Rate 109 H 01/07/25 17:34 Respiratory Rate 24 H 01/07/25 17:34 Blood Pressure 130/68 01/07/25 17:34 Pulse Oximetry 98 01/07/25 17:34 Oxygen Delivery BiPAP 01/07/25 14:54 Oxygen Flow Rate 3 01/07/25 07:35 Lab Data Lab results reviewed: Yes I reviewed the patient's lab results. 01/07/25 07:56 01/07/25 07:56 Labs: Lab Results 01/07/25 01/07/25 01/07/25 Range/Units 07:56 08:10 08:42 WBC 10.1 H (4.5-10.0) K/mm3 RBC 4.61 (4.2-5.4) M/mm3 Hgb 14.0 (12.0-15.0) g/dL Hct 43.7 (37.0-47.0) % MCV 94.8 (80-100) fl MCH 30.4 (26-34) pg MCHC 32.0 (32-36) g/dl RDW 14.0 (11.5-14.5) % Plt Count 183 (150-375) k/mm3 MPV 10.5 H (7.4-10.4) fl Immature Gran % (Auto) 0.5 (0-0.5) % Neut % (Auto) 54.9 (45.5-73.1) % Lymph % (Auto) 34.5 (18.3-44.2) % [place] % (Auto) 8.9 H (2.6-8.5) % Eos % (Auto) 0.5 (0-4.4) % Baso % (Auto) 0.7 (0.2-1.2) % Lymph # (Auto) 3.47 H (0.9-3.2) K/mm3 [place] # (Auto) 0.9 H (0.1-0.6) K/mm3 Eos # (Auto) 0.1 (0-0.3) K/mm3 Baso # (Auto) 0.1 (0.0-0.1) K/mm3 Abs Immat Gran (auto) 0.05 H (0.00-0.031) K/mm3 Absolute Neuts (auto) 5.5 (1.3-6.7) K/mm3 Absolute Nucleated RBC 0.000 (0.0-0.012) K/mm3 Nucleated RBC % 0.0 (0.0-0.2) % PT 13.4 (11.1-14.7) Seconds INR 1.0 APTT 26.0 (22.3-36.8) Seconds Methemoglobin 0.1 (0-1.5) %THb Expiratory Pressure Pending Inspiratory Pressure Pending Sodium 139 (137-145) mmol/L Potassium 4.1 (3.4-5.0) mmol/L Chloride 104 (98-107) mmol/L Carbon Dioxide 25 (22-30) mmol/L Anion Gap 10 (4-12) mmol/L BUN 21 H (7-17) mg/dL Creatinine 0.84 (0.7-1.0) mg/dL Estim Creat Clear Calc 39 ml/min Estimated GFR > 60 (59 - ) Glucose 147 H (65-110) mg/dL Calcium 8.8 (8.4-10.2) mg/dL Total Bilirubin 0.5 (0.2-1.3) mg/dL AST 32 (14-36) U/L ALT 21 (6-35) U/L Alkaline Phosphatase 101 (38-126) U/L Total Protein 7.0 (6.3-8.2) g/dL Albumin 4.2 (3.5-5.1) g/dL Urine Color Yellow (Yellow) Urine Appearance Clear (Clear) Urine pH 5.0 (5.0-9.0) Ur Specific [place] 1.020 (1.001-1.035) Urine Protein Trace (Negative) mg/dL Urine Glucose (UA) Negative (Negative) mg/dL Urine Ketones Negative (Negative) mg/dL Ur Blood (Man) Negative (Negative) Urine Nitrate Negative (Negative) Urine Bilirubin Negative (Negative) Urine Urobilinogen 0.2 (<2.0) mg/dL Leukocyte Esterase Rfl Negative (Negative) SURESH/UL Urine RBC 0-2 (0-2) /hpf Urine WBC 0-5 (0-3) /hpf Ur Squamous Epith Cells None seen (Few) /hpf Urine Bacteria None seen /hpf Urine Casts 0-2 Influenza A (RT-PCR) Negative (Negative) Influenza B (RT-PCR) Negative (Negative) RSV (RT-PCR) Negative (Negative) SARS-CoV-2 RNA (RT-PCR) Negative (Negative) ABG Data ABG results: 01/07/25 08:10 Puncture Site Left radial ABG pH 7.289 L* ABG pCO2 43.7 ABG pO2 204.0 H ABG PO2/FiO2 Ratio 2.49 ABG HCO3 20.5 L ABG O2 Saturation 99.3 ABG O2 Content 20.2 ABG Base Excess -5.9 A-a Gradient 335.0 Oxyhemoglobin 98.5 Carboxyhemoglobin 0.8 Reduced Hemoglobin 0.6 Total Hemoglobin 14.3 O2 Delivery Device Non-invasive vent O2 Liters/Min 0.0 FiO2 30 Imaging Data Radiologist's impression: Impressions Chest X-Ray 01/07/25 08:05 Impression: Bibasilar chronic interstitial disease and/or COPD change. Discharge Plan Discharge Clinical Impression: COPD (chronic obstructive pulmonary disease) Patient Disposition: Still a Patient Condition: Serious
[2025-01-07] MEDS: ALBUTEROL SULFATE NEB 2.5 MG/3 ML INH 10 MG INHALATION (07:41)
--- OUTSIDE RECORDS SUMMARY | 2025-01-07 07:44 | XMS_ITS | Continuity of Care Document ---
Author Organization [facility] Address [address] [place] [address] [address] [place] [address] Phone Care Team Providers Care Program Eligibility Specialist Name Role Phone Muehyash VASQUEZ CMPTChris Unavailable Unavailable Procedures Procedure Date Progress Note Therapeutic Activities Hot or Cold Pack Neuromuscular Re-Ed Therapeutic Activities Neuromuscular Re-Ed Hot or Cold Pack Therapeutic Activities Neuromuscular Re-Ed Therapeutic Exercise Hot or Cold Pack Therapeutic Activities Neuromuscular Re-Ed Manual Therapy Therapeutic Exercise Hot or Cold Pack Therapeutic Activities Neuromuscular Re-Ed Hot or Cold Pack Therapeutic Exercise Therapeutic Activities Neuromuscular Re-Ed Hot or Cold Pack Manual Therapy Therapeutic Exercise Therapeutic Activities Neuromuscular Re-Ed Therapeutic Exercise Manual Therapy Hot or Cold Pack Therapeutic Activities Neuromuscular Re-Ed Therapeutic Exercise Hot or Cold Pack Manual Therapy Therapeutic Activities Neuromuscular Re-Ed Manual Therapy Therapeutic Exercise Hot or Cold Pack Neuromuscular Re-Ed Therapeutic Activities Therapeutic Exercise Hot or Cold Pack Therapeutic Activities Neuromuscular Re-Ed Therapeutic Exercise Hot or Cold Pack Therapeutic Activities Neuromuscular Re-Ed Hot or Cold Pack Therapeutic Activities Neuromuscular Re-Ed Hot or Cold Pack PT Evaluation Moderate Complexity Therapeutic Activities Neuromuscular Re-Ed Advance Directives Directive Yes / No Effective Date File Name No Information Encounters Encounter Description Practice Location Reason(s) For Visit Diagnoses Date Provider Providers Copied on Encounter [address], [id number], tel:[phone] [place] No Information Mar-1 3-202 0 Muehl Chris. [address] [place] [address], . tel:[phone] Referring Provider: Alexandrea Horan [address] [place] [address], [facility]. tel:[phone], [id number], tel:[phone] [place] No Information Mar-1 0-202 0 Muehl Chris. [address] [place] [address], [address], [facility], . tel:[phone] Referring Provider: Alexandrea Horan [facility], [address]. tel:[phone], [id number], tel:[phone] [place] No Information Mar-0 5-202 0 Muehl Chris. [address] [place] [address], [facility] [address] [place] [address], . tel:[phone] Referring Provider: Alexandrea Horan, [address], [place], [address]. tel:[phone] [address] [facility], [place], [place], [id number], tel:[phone] [place] No Information Dec-0 3-202 0 Muehl Chris. [address] [place] [address], [address], [place], [place], [facility], . tel:[phone] Referring Provider: Alexandrea Horan, [address], [place], [address]. tel:[phone] [address] [place] [address], [id number], tel:[phone] [place] No Information Nov-2 7-202 0 Muehl Chris. [address] [place] [address], [address], [place], [place], [facility], . tel:[phone] Referring Provider: Alexandrea Horan, [address], [place], [address]. tel:[phone] [place] [address], [id number], tel:[phone] [place] No Information Nov-2 5-202 0 Muehl Chris. [address] [place] [address], [address], [place], [facility], . tel:[phone] Referring Provider: Alexandrea Horan, [address], [place], [address]. tel:[phone] [address], [place], [id number], tel:[phone] [place] No Information b-2 1-202 0 Muehl Chris. [address] [place] [address], [address], [place], [place], [facility], . tel:[phone] Referring Provider: Alexandrea Horan [address], [place], [address]. tel:[phone] [place] [address] [address] [facility], [place], [place], [id number], tel:[phone] [place] No Information 0 [address]. . Referring Provider: Alexandrea Horan, [address] [facility] [address], [place], [address]. tel:[phone] [place] [address] [address] [facility], [place], [place], [id number], tel:[phone] [place] No Information 0 Muehl Chris. [address] [facility], [address], [place], [facility], . tel:[phone] Referring Provider: Alexandrea Horan, [facility] [address], [place], [address]. tel:[phone] [place] [address] [facility] [address], [place], [place], [id number], tel:[phone] [place] No Information 0 Muehl Chris. [address] [facility], [address], [place], [facility], . tel:[phone] Referring Provider: Alexandrea Horan, [facility] [address], [place], [address]. tel:[phone] [place] [address] [address] [place] [address], [place], [place], [id number], tel:[phone] [place] No Information 0 Muehl Chris. [address] [facility], [address], [place], [facility], . tel:[phone] Referring Provider: Alexandrea Horan, [facility] [address], [place], [address]. tel:[phone] [place] [address] [address] [facility], [place], [place], [id number], tel:[phone] [place] No Information 0 [address]. . Referring Provider: Alexandrea Horan, [address] [facility] [address], [place], [address]. tel:[phone] [place] [address], [id number], tel:[phone] [place] No Information 0 Ailinyash Chris. [address] [facility], [facility] [address], [address], [place]. tel:[phone] Referring Provider: Alexandrea Horan, [address] [facility] [address], [place], [address]. tel:[phone], [id number], tel:[phone] [place] No Information 0 Ailinyash Chris. [address] [facility], [facility] [address], [address], . tel:[phone] Referring Provider: Alexandrea Horan, [address] [facility] [address], [place], [address]. tel:[phone] Family History Family Member Type Diagnosis Age At Onset No Information Payers Payer name Insurance type Covered constitution party ID Javad farris(s) [employer] CI [id number] Social History Type Description Quantity Date Captured [...]
--- OUTSIDE RECORDS SUMMARY | 2025-01-07 07:44 | XMS_ITS | Clinical Summary ---
Author Organization [facility] Address [address] [place] [id number] Care Team Providers Care Assistant Press Operator Offset Name Role Phone Abbi Montes MD Primary Care Provider Allergies No known active allergies Medications ALPRAZolam (XANAX) 0.25 mg tabletIndicatio ns:anxiety Take 0.25 mg by mouth 2 (two) times a day as needed 5 9 Active simvastatin (ZOCOR) 40 mg tabletIndicatio ns:hyperlipidem ia Take 40 mg by mouth nightly 2 9 Active losartan (COZAAR) 100 mg tabletIndicatio ns:hypertension Take 100 mg by mouth every morning 2 9 Active atenolol (TENORMIN) 50 mg tabletIndicatio ns:hypertension Take 50 mg by mouth 2 (two) times a day 2 9 Active escitalopram (LEXAPRO) 10 mg tabletIndicatio ns:Anxiety with Depression Take 20 mg by mouth nightly 1 9 Active aspirin 325 mg enteric coated tabletIndicatio ns:Deep Vein Thrombosis Prevention Take 1 tablet (325 mg total) by mouth 2 (two) times a day 84 tablet 9 Active cyclobenzaprine (FLEXERIL) 5 mg tablet Take 1 tablet (5 mg total) by mouth 3 (three) times a day as needed for muscle spasms 30 tablet 1 9 Active Additional Information Patient not taking.Reported on 07/09/2020 senna-docusate (PERICOLACE) 8.6-50 mgIndications:c onstipation Take 2 tablets by mouth 2 (two) times a day 30 tablet 1 9 Active Additional Information Patient not taking.Reported on 07/09/2020 naproxen (ALEVE) 220 mg tabletIndicatio ns:Pain Take 440 mg by mouth every 12 (twelve) hours as needed for pain. 2 tabs BID PRN for pain Indications: pain Active cephalexin (KEFLEX) 500 mg capsuleIndicati ons:Per Dr. Vega authorization. Take one capsule by mouth four times daily until all capsules are gone. 28 capsule 9 Active Additional Information Patient not taking.Reported on 07/09/2020 PROAIR HFA 90 mcg/actuation inhaler INHALE 2 PUFFS BY INHALATION ROUTE EVERY 4 HOURS NEEDED 0 9 Active predniSONE (DELTASONE) 20 mg tablet TAKE 2 TABLETS ONCE DAILY FOR 5 DAYS 0 9 Active DOXYCYCLINE 100 mg tablet TAKE 1 TABLET EVERY 12 HOURS FOR 10 DAYS UNTIL ALL TAKEN 0 9 Active ergocalciferol (VITAMIN D) 50,000 unit capsule TAKE 1 CAPSULE BY MOUTH ONCE A WEEK FOR 12 DOSES 12 capsule 0 Active Additional Information Patient not taking.Reported on 07/09/2020 telmisartan (MICARDIS) 80 mg tablet Take 80 mg by mouth daily 0 Active raloxifene (EVISTA) 60 mg tablet Take 60 mg by mouth daily 0 Active aspirin 81 mg enteric coated tablet Take 81 mg by mouth daily Active Active Problems Problem Noted Date Diagnosed Date Right hip pain 08/22/2019 Overview (08/22/2019): Added automatically from request for surgery [id number] Immunizations Immunization Administration Dates Next Due Influenza, Trivalent, High D ose, Split, Preservative Free, Intramuscular 08/06/2019,08/27/2016 Influenza, Trivalent, IM (MDV) 07/22/2018,2012 Pneumococcal Conjugate PCV 13 07/22/2018 Pneumococcal Polysaccharide PPV23 11/13/2017 ZOSTER LIVE 11/03/2016 Surgical History Surgery Date Site/Laterality Comments HIP ARTHROPLASTY 10/26/2013 - 10/25/2014 Right HYSTERECTOMY COLONOSCOPY Family History Medical History Relation Name Comments Heart failure Brother Heart attack Mother Heart attack Sister Relation Name Status Comments Brother Mother Sister Social History Tobacco Use Types Packs/Day Years Used Date Smoking Tobacco: Former Cigarettes 0 44.8 1 975 - 08/29/2019 Smokeless Tobacco: Never Comments:3 cigarettes a day Alcohol Use Standard Drinks/Week Comments Not Currently 0 (1 standard drink = 0.6 oz pur e alcohol) Comments No Sex and Gender Information Value Date Recorded Sex Assigned at Not on file Legal Sex Female 11:57 PM PARADICHLOROBENZENE TENDER Gender Identity Not on file Sexual Orientation Not on file Obstetrics History Last Filed Vital Signs Vital Sign Reading Time Taken Comments Blood Pressure 146/80 10/21/2019 12:02 PM PARADICHLOROBENZENE TENDER Pulse 64 10/21/2019 12:02 PM PARADICHLOROBENZENE TENDER Temperature 36.9 C (98.5 F) 10/21/2019 12:02 PM PARADICHLOROBENZENE TENDER Respiratory Rate 16 10/21/2019 12:02 PM PARADICHLOROBENZENE TENDER Oxygen Saturation 98% 10/21/2019 12:02 PM PARADICHLOROBENZENE TENDER Inhaled Oxygen Concentration - - Weight 59 kg (130 lb) 10/03/2019 12:50 PM PARADICHLOROBENZENE TENDER Height 62 cm (2' 0.41 ) 10/03/2019 12:50 PM PARADICHLOROBENZENE TENDER Body Mass Index 153.39 10/03/2019 12:50 PM PARADICHLOROBENZENE TENDER Plan of Treatment Not on file Medical Devices Implanted Type Area Counter Sales Representative Device Identifier Shelf Expiration Date Model / Serial / Lot [employer] [id number] 54mm Limit 4 Hole Hip F Hemisphere Offset Shell Acetabular - [id number] Implanted:Qty: 1 on 09/28/2019 by Ezekiel Vega MD at [facility] Right: Hip [employer] [id number] 02/13/2029 [id number] / / [id number] [employer] [id number] Trilogy 6.5mm 40mm Self Tap Hip Acetabular Cortical Screw Bone - [id number] Implanted:Qty: 1 on 09/28/2019 by Ezekiel Vega MD at [facility] Right: Hip [employer] [id number] 05/25/2029 [id number] / / [id number] [employer] [id number] Trilogy 6.5mm 20mm Self Tap Screw Bone - [id number] Implanted:Qty: 1 on 09/28/2019 by Ezekiel Vega MD at [facility] Right: Hip [employer] [id number] 01/23/2025 [id number] / / [id number] [employer] [id number] Trilogy 6.5mm 25mm Self Tap Screw Bone - [id number] Implanted:Qty: 1 on 09/28/2019 by Ezekiel Vega MD at [facility] Right: Hip [employer] [id number] 01/23/2025 [id number] / / [id number] [employer] [id number] 44mm 2 Mobility Hip F Liner Acetabular - [id number] Implanted:Qty: 1 on 09/28/2019 by Ezekiel Vega MD at [facility] Right: Hip [employer] [id number] 08/11/2029 [id number] / / [id number] [employer] [id number] Phillips Sl Revision 14mm 265mm Distal Fill Hip 135d 10/08 Stem - [id number] Implanted:Qty: 1 on 09/28/2019 by Ezekiel Vega MD at [facility] Right: Hip [employer] [id number] 06/25/2023 [id number] / / [id number] [employer] [id number] Trilogy It Continuum 28mm Hip Acetabulum -3.5mm 10/08 Small Head - [id number] Implanted:Qty: 1 on 09/28/2019 by Ezekiel Vega MD at [facility] Right: Hip [employer] [id number] 04/24/2029 [id number] / / [id number] [employer] [id number] Active Articulation 44mm Bearing Hip Arcomxl Sterile 28mm Modular - [id number] Implanted:Qty: 1 on 09/28/2019 by Ezekiel Vega MD at [facility] Right: Hip [employer] [id number] 05/23/2024 [id number] / / [id number] Insurance Advance Directives For more information, please contact: [phone] * Full Code (Latest Code Status on File) Date Activated Date Inactivated Comments 09/28/2019 9:32 PM 10/01/2019 10:35 PM Care Teams Assistant Press Operator Offset Relationship Specialty Start Date End Date Abbi Montes MD [address] [facility] [address] [place] [address] PCP - General Family Medicine 07/21/19
--- OUTSIDE RECORDS SUMMARY | 2025-01-07 07:44 | XMS_ITS | Continuity of Care Document ---
Author Organization Merged with [facility] Address [address] [place] [address] [address] [place] [address] Phone Care Team Providers Care Paint Prep Technician Name Role Phone Doisy, Edward Unavailable Unavailable Advance Directives Directive Yes / No Effective Date File Name No Information Encounters Encounter Description Practice Location Reason(s) For Visit Diagnoses Date Provider Providers Copied on Encounter [facility], [address], [place], [place], [id number], [place] tel:[phone] SEC [facility] [place] No Information February- 5-200 0 Doisy Edward. [address] [facility] , [address], [place], [address], [place]. tel:[phone] Family History Family Member Type Diagnosis Age At Onset No Information Payers Payer name Insurance type Covered republican ID Authoriza tion(s) No Information Social History [...]
--- OUTSIDE RECORDS SUMMARY | 2025-01-07 07:44 | XMS_ITS | Referral Summary ---
Author Organization [facility] Address [address] [place] [phone] Care Team Providers Care Pedigree Researcher Name Role Phone Abbi Montes MD Primary [...] (08/22/2019): Added automatically from request for surgery [id number] Immunizations Immunization Administration Dates Next Due Influenza, Trivalent, High D ose, Split, Preservative Free, Intramuscular 08/06/2019,08/27/2016 Influenza, Trivalent, IM (MDV) 07/22/2018,2012 Pneumococcal Conjugate PCV 13 07/22/2018 Pneumococcal Polysaccharide PPV23 11/13/2017 ZOSTER LIVE 11/03/2016 Social History Tobacco Use Types Packs/Day Years Used Date Smoking Tobacco: Former Cigarettes 0 44.8 1 975 - 08/29/2019 Smokeless Tobacco: Never Comments:3 cigarettes a day Alcohol Use Standard Drinks/Week Comments Not Currently 0 (1 standard drink = 0.6 oz pur e alcohol) Comments No Sex and Gender Information Value Date Recorded Sex Assigned at Not on file 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 Gender Identity Not on file Sexual Orientation Not on file Last Filed Vital Signs Vital Sign Reading Time Taken Comments Blood Pressure 146/80 10/21/2019 12:02 PM MACHINE INSTALLER Pulse 64 10/21/2019 12:02 PM MACHINE INSTALLER Temperature 36.9 C (98.5 F) 10/21/2019 12:02 PM MACHINE INSTALLER Respiratory Rate 16 10/21/2019 12:02 PM MACHINE INSTALLER Oxygen Saturation 98% 10/21/2019 12:02 PM MACHINE INSTALLER Inhaled Oxygen Concentration - - Weight 59 kg (130 lb) 10/03/2019 12:50 PM MACHINE INSTALLER Height 62 cm (2' 0.41 ) 10/03/2019 12:50 PM MACHINE INSTALLER Body Mass Index 153.39 10/03/2019 12:50 PM MACHINE INSTALLER Plan of Treatment Not on file Medical Devices Implanted Type Area Pool Player Device Identifier Shelf Expiration Date Model / Serial / Lot [employer] [id number] 54mm Limit 4 Hole Hip F Hemisphere Offset Shell Acetabular - [id number] Implanted:Qty: 1 on 09/28/2019 by Ezekiel Vega MD at [facility] Right: Hip [employer] [id number] 02/13/2029 [id number] / / [id number] [employer] [id number] Trilogy 6.5mm 40mm Self Tap Hip Acetabular Cortical Screw Bone - [id number] Implanted:Qty: 1 on 09/28/2019 by Ezekiel Vega MD at [facility] Right: Hip [employer] [id number] 05/25/2029 [id number] / / [id number] [employer] [id number] Trilogy 6.5mm 20mm Self Tap Screw Bone - [id number] Implanted:Qty: 1 on 09/28/2019 by Ezekiel Vega MD at [facility] Right: Hip [employer] [id number] 01/23/2025 [id number] / / [id number] [employer] [id number] Trilogy 6.5mm 25mm Self Tap Screw Bone - [id number] Implanted:Qty: 1 on 09/28/2019 by Ezekiel Vega MD at [facility] Right: Hip [employer] [id number] 01/23/2025 [id number] / / [id number] [employer] [id number] 44mm 2 Mobility Hip F Liner Acetabular - [id number] Implanted:Qty: 1 on 09/28/2019 by Ezekiel Vega MD at [facility] Right: Hip [employer] [id number] 08/11/2029 [id number] / / [id number] [employer] [id number] Phillips Sl Revision 14mm 265mm Distal Fill Hip 135d /14 Stem - [id number] Implanted:Qty: 1 on 09/28/2019 by Ezekiel Vega MD at [facility] Right: Hip [employer] [id number] 06/25/2023 [id number] / / [id number] [employer] [id number] Trilogy It Continuum 28mm Hip Acetabulum -3.5mm /14 Small Head - [id number] Implanted:Qty: 1 on 09/28/2019 by Ezekiel Vega MD at [facility] Right: Hip [employer] [id number] 04/24/2029 [id number] / / [id number] [employer] [id number] Active Articulation 44mm Bearing Hip Arcomxl Sterile 28mm Modular - [id number] Implanted:Qty: 1 on 09/28/2019 by Ezekiel Vega MD at [facility] Right: Hip [employer] [id number] 05/23/2024 [id number] / / [id number] Insurance Advance Directives For more information, please contact: [phone] * Full Code (Latest Code Status on File) Date Activated Date Inactivated Comments 09/28/2019 9:32 PM 10/01/2019 10:35 PM Care Teams Pedigree Researcher Relationship Specialty Start Date End Date Abbi Montes MD [address] [address] PCP - General Family Medicine 07/21/19
--- NOTE | 2025-01-07 07:51 | ECG_ITS ---
Test Date: 2025-01-07 07:46:12 Measurements Intervals [place] Rate: 114 P: 0 KS: 0 QRS: 52 QRSD: 77 T: 74 QT: 317 QTc: 438 Interpretive Statements SINUS TACHYCARDIA Electronically Signed On 01-08-2025 13:55:37 CDT by Shai Woods D.O
[2025-01-07] MEDS: methylPREDNISolone SOD SUCC 125 MG VIAL IV PUSH (07:59)
[2025-01-07 08:19] LABS: Alanine Aminotransferase 21 U/L (6-35); Albumin Level 4.2 g/dL (3.5-5.1); Alkaline Phosphatase 101 U/L (38-126); Anion Gap 10 mmol/L (4-12); Aspartate Amino Transferase 32 U/L (14-36); Bilirubin,Total 0.5 mg/dL (0.2-1.3); Blood Urea Nitrogen 21 mg/dL (7-17); Calcium 8.8 mg/dL (8.4-10.2); Carbon Dioxide 25 mmol/L (22-30); Chloride 104 mmol/L (98-107); Estimated CRCL calculation 39 ml/min; Estimated Glomerular Filt Rate > 60; Glucose 147 mg/dL (65-110); Potassium 4.1 mmol/L (3.4-5.0); Sodium 139 mmol/L (137-145)
[2025-01-07 08:20] LABS: Base Excess ABG -5.9 mEq/l (+/-2.0); Carboxyhemoglobin 0.8 % THb (0-2.0); HCO3 ABG 20.5 mEq/l (22.0-26.0); Methemoglobin ABG 0.1 %THb (0-1.5); Oxygen Content ABG 20.2 %vol (16.0-22.0); Oxygen Saturation ABG 99.3 % (95.0-100.0); Oxyhemoglobin 98.5 % THb (90.0-100.0); PCO2 ABG 43.7 mmHg (35.0-45.0); PO2 FiO2 Ratio Arterial Blood 2.49 %; Reduced Hemoglobin 0.6 %THb (0-5.0); Total Hemoglobin 14.3 g/dL (12.0-18.0)
[2025-01-07 08:25] LABS: Device NON-INVASIVE VENT; Modified Allen's Test Pass; Site Drawn LEFT RADIAL
[2025-01-07 08:26] LABS: Fractional Inspired Oxygen 30 %
[2025-01-07 08:29] LABS: pH ABG 7.289 (7.350-7.450)
[2025-01-07 08:40] LABS: Basophils Absolute Auto 0.1 K/mm3 (0.0-0.1); Basophils Percent Auto 0.7 % (0.2-1.2); Eosinophils Absolute Auto 0.1 K/mm3 (0-0.3); Eosinophils Percent Auto 0.5 % (0-4.4); Hematocrit 43.7 % (37.0-47.0); Immature Granulocyte Absolute 0.05 K/mm3 (0.00-0.031); Immature Granulocyte Percent A 0.5 % (0-0.5); Lymphocytes Absolute Auto 3.47 K/mm3 (0.9-3.2); Lymphocytes Percent Auto 34.5 % (18.3-44.2); Mean Corpuscular Hemoglobin 30.4 pg (26-34); Mean Corpuscular Volume 94.8 fl (80-100); Mean Platelet Volume 10.5 fl (7.4-10.4); Monocytes Absolute Auto 0.9 K/mm3 (0.1-0.6); Monocytes Percent Auto 8.9 % (2.6-8.5); Neutrophils Absolute Auto 5.5 K/mm3 (1.3-6.7); Neutrophils Percent Auto 54.9 % (45.5-73.1); Platelet Count Result 183 k/mm3 (150-375); Red Blood Count 4.61 M/mm3 (4.2-5.4); White Blood Count 10.1 K/mm3 (4.5-10.0)
[2025-01-07 08:50] LABS: Influenza A QL RT-PCR Negative (Negative); Influenza B QL RT-PCR Negative (Negative); RSV RNA, RT-PCR Negative (Negative); SARS-CoV-2 RNA PCR Negative (Negative)
[2025-01-07 08:53] LABS: Add Urine Microscopic? YES; Appearance Urine Clear (Clear); Bacteria Urine None Seen /hpf; Bilirubin Urine Negative (Negative); Blood Urine Negative (Negative); Color Urine Yellow (Yellow); Glucose Urine UA Negative (Negative); Ketones Urine Negative (Negative); Leukocyte Esterase Ur Negative LEU/UL (Negative); Nitrate Urine Negative (Negative); Non Pathogenic Casts 0-2; Protein Urine Trace mg/dL (Negative); RBC Urine 0-2 /hpf (0-2); Squamous Epithelial Cell Urine None Seen /hpf (Few); Urobilinogen Urine 0.2 mg/dL (<2.0); WBC Urine 0-5 /hpf (0-3)
[2025-01-07] MEDS: LORazepam INJ (*CRX) 2 MG/ML VIAL 0.5 MG IV PUSH (09:04)
[2025-01-07 09:13] LABS: Prothrombin Time 13.4 Seconds (11.1-14.7)
--- NOTE | 2025-01-07 12:00 | PC.NURSE ---
Pt son at bedside. Pt requested that her son be contacted with any new updates. Pt son phone number [phone].
[2025-01-07] MEDS: AZITHROMYCIN 500 MG/NS 250 ML 500 MG/250 ML BAG 250 MG IVPB (13:25)
--- NOTE | 2025-01-07 14:03 | PM.IMHP ---
H&P: HPI History of Present Illness Date/Time: 01/07/25 14:03 Chief Complaint: Shortness of Breath Narrative: 79 y/o F presents here with shortness of breath with PMH of COPD, IBS, myocardial infarction, HTN, HLD, anxiety, depression, osteoporosis, tobacco use, and osteoporosis. The patient presents here from home via EMS for further evaluation of shortness of breath. She reports she began to feel short of breath Th night. Initially occurred with exertion and then became severe today where she felt she could not take a deep breath. The patient utilize her home inhalers and nebulizers without relief Denies fever, chills, body aches, congestion, runny nose, or chest pain. Patient reports she would have been evaluated last night if not for the severe weather but elected to call EMS today. Upon their arrival, the patient was 85% on room air. She does not require supplemental oxygen at baseline. She was given an albuterol nebulizer and a DuoNeb treatment. She arrived to the emergency department with labored breathing, tachypneic, tachycardic, and tripoding with an O2 sat of 87% on room air. Patient was subsequently placed on a nasal cannula and transition to BiPAP. The patient currently falls with pulmonology, last visit on 01/03/2025 with Rafael GORDON. Current regimen: Trelegy 100 1 puff daily and Albuterol p.r.n. at this visit she was prescribed doxycycline 100 mg daily x7 days due to worsening shortness of breath and increased sputum production. The patient was instructed to monitor symptoms with a week and start the doxycycline over the weekend if no improvement. The patient reports she had started this medication and has received a total of 4 doses. Patient is a current smoker - 5 cigarettes per day. Initial VS at presentation: 97.2? F, HR 115, R 32, 181/81, and 86% on room air. Transition to BiPAP in the ED. ED workup showed: No leukocytosis, no anemia, normal coags, ABG showed a pH of 7.289/0 2-0 4/HC03 20.5, no significant electrolyte derangements, creatinine 0.84 and GFR >60, glucose 147, and UA negative. Viral PCR negative. CXR showed bibasilar chronic interstitial disease and/or COPD change. EKG showed supraventricular tachycardia, rate 114, moderate ST depression. Review of Systems Review of Systems: All systems reviewed & are unremarkable except as noted in HPI and below [facility] Past Medical History Medical History (Updated 01/07/25 @ 14:22 by Paz Peres APRN) Tobacco use disorder Insomnia Chronic obstructive pulmonary disease, unspecified Postmenopausal Irritable bowel syndrome with diarrhea Vitamin D deficiency, unspecified Osteoporosis Mixed hyperlipidemia Atherosclerosis of aorta Bilateral carotid bruits History of VT (myocardial infarction) Atherosclerotic heart disease of hopi coronary artery without angina pectoris Generalized anxiety disorder MDD (major depressive disorder), recurrent episode, moderate Ambulatory dysfunction Emphysema of lung Benign essential hypertension Surgical History Surgical History Presence of right artificial hip joint Family History Family History Mother Family history of premature coronary heart disease, Onset Age: 74 Other Family history of elevated blood lipids Family history of heart disease in male family member before age 55 Family history of obesity Hypertension Social History Social History Social History: Smoking packs per day: 1 Smoking cigarettes per day: 20.0 Years smoked: 25 Smoking pack-years: 25.00 Smoking status: Current some day smoker Second hand tobacco smoke exposure: Yes Alcohol intake: never Substance use: never Substance use type: does not use Do You Feel Safe in your Home?: Yes Lack of Transportation: No Lack of Food: Never True Current Housing: I Have Housing Concerned About Future Housing: No Difficulty Paying Gas/Electric Bills: No Difficulty Paying for Meds: No Currently Unemployed: YES Education: Don't Know Difficulty w/ Childcare or Family Care: No Living arrangements: with family Additional living arrangements comments: Pt and her brother live together. Occupation/Education: retired Gender identity (if verbalized by the patient): Female Sexual Orientation (if Verbalized by the Patient): Straight or Heterosexual Spiritual care concerns: No Meds Home Medications and Allergies Home Medications ?Medication ?Instructions ?Recorded ?Confirmed ?Type aspirin 81 mg tablet,delayed 81 mg PO DAILY 11/01/19 01/07/25 History release (Adult Low Dose Aspirin) cholecalciferol (vitamin D3) 25 25 mcg PO DAILY 07/04/21 01/07/25 History mcg (1,000 unit) capsule telmisartan 20 mg tablet See Rx Instructions .Route 07/20/24 01/07/25 Rx .COMPLEX #180 tabs albuterol sulfate 90 mcg/actuation 2 inh inhalation Q4H PRN shortness 09/09/24 01/07/25 Rx aerosol inhaler of breath or wheezing #8.5 grams fluticasone fur. 100 mcg-umeclid 1 inh inhalation DAILY #60 ea 10/04/24 01/07/25 Rx 62.5 mcg-vilant 25 mcg inhalat.powder (Trelegy Ellipta) simvastatin 40 mg tablet See Rx Instructions .Route 10/21/24 01/07/25 Rx .COMPLEX #90 tabs atenolol 50 mg tablet See Rx Instructions .Route 11/21/24 01/07/25 Rx .COMPLEX #180 tabs raloxifene 60 mg tablet See Rx Instructions .Route 11/21/24 01/07/25 Rx .COMPLEX #100 tabs escitalopram oxalate 20 mg tablet 20 mg PO DAILY #90 tabs 12/22/24 01/07/25 Rx doxycycline hyclate 100 mg tablet 100 mg PO DAILY #7 tabs 01/03/25 01/07/25 Rx alprazolam 1 mg tablet 1 mg PO HS 01/07/25 01/07/25 History bupropion HCl 150 mg tablet,12 hr 150 mg PO Q12H 01/07/25 01/07/25 History sustained-release fluticasone fur. 100 mcg-umeclid 1 inh inhalation DAILY 01/07/25 01/07/25 History 62.5 mcg-vilant 25 mcg inhalat.powder (Trelegy Ellipta) Allergies Allergy/AdvReac Type Severity Reaction Status Date / Time tramadol Allergy Unknown Itching Verified 01/07/25 07:48 sulfamethoxazole (From AdvReac Intermediate Nausea and Verified 01/07/25 07:48 Bactrim) Vomiting trimethoprim (From Bactrim) AdvReac Intermediate Nausea and Verified 01/07/25 07:48 Vomiting Vital Signs Vital Signs - 24 hr 01/07/25 07:25 01/07/25 07:25 01/07/25 07:34 Temperature 97.2 F L Pulse Rate 115 H 115 H Respiratory Rate 32 H 38 H Blood Pressure 181/81 H 181/81 H Pulse Oximetry 86 L 86 L 92 Oxygen Delivery Room Air Autopap Oxygen Flow Rate 01/07/25 07:35 01/07/25 07:35 01/07/25 07:49 Temperature Pulse Rate Respiratory Rate Blood Pressure Pulse Oximetry 94 94 96 Oxygen Delivery Nasal Cannula Nasal Cannula BiPAP Oxygen Flow Rate 3 3 01/07/25 07:49 01/07/25 07:50 01/07/25 07:53 Temperature Pulse Rate 116 H 113 H Respiratory Rate 41 H Blood Pressure Pulse Oximetry 96 96 Oxygen Delivery BiPAP BiPAP Oxygen Flow Rate 01/07/25 07:55 01/07/25 08:01 01/07/25 08:54 Temperature Pulse Rate 113 H 112 H 126 H Respiratory Rate 40 H 41 H 41 H Blood Pressure 139/68 Pulse Oximetry 100 Oxygen Delivery Oxygen Flow Rate 01/07/25 09:01 01/07/25 09:15 01/07/25 09:31 Temperature Pulse Rate 128 H 125 H 125 H Respiratory Rate 46 H 39 H 39 H Blood Pressure 119/56 L 131/72 122/83 Pulse Oximetry 96 95 93 Oxygen Delivery Oxygen Flow Rate 01/07/25 09:47 01/07/25 10:01 01/07/25 10:40 Temperature Pulse Rate 122 H 124 H 111 H Respiratory Rate 37 H 35 H 30 H Blood Pressure 111/51 L 147/52 H Pulse Oximetry 93 94 95 Oxygen Delivery BiPAP Oxygen Flow Rate 01/07/25 11:02 01/07/25 12:01 01/07/25 12:15 Temperature Pulse Rate 110 H 108 H 108 H Respiratory Rate 25 H 29 H 30 H Blood Pressure 130/59 L 139/73 Pulse Oximetry 95 95 95 Oxygen Delivery BiPAP Oxygen Flow Rate 01/07/25 12:46 Temperature Pulse Rate 109 H Respiratory Rate 35 H Blood Pressure 143/71 H Pulse Oximetry 95 Oxygen Delivery Oxygen Flow Rate Exam Const: General: comfortable and no acute distress Other: , female, nontoxic appearance HENMT: Face/Nose/Sinus: Normal nares present Mouth: Yes moist mucous membranes Eyes: General: appearance normal, both eyes and all related structures Sclera: sclerae normal Pupils: Equal, round and reactive pupils present EOM: EOMs intact bilaterally Resp: Effort & Inspection: normal respiratory effort Other: Nasal cannula in place, tolerating well. expiratory wheeze, no crackles. Cardio: Rate: regular rate Rhythm: regular rhythm Other: S1-S2 present without murmur, rub, ectopy GI: Other: Abdomen soft, nondistended, nontender. Skin: General skin exam: normal color and no rashes or lesions noted Wounds: no wounds Neuro: Speech: normal speech Motor exam (neuro): 5/5 motor strength present throughout Sensory Exam: normal sensation Other: A&O x4 Extrem: General: normal to inspection Psych: Mental Status: mental status grossly normal Affect: Anxious affect present Other: Patient very anxious, good insight and judgment. H&P: Results Labs Labs: Short CBC 01/07/25 Range/Units 07:56 WBC 10.1 H (4.5-10.0) K/mm3 Hgb 14.0 (12.0-15.0) g/dL Hct 43.7 (37.0-47.0) % Plt Count 183 (150-375) k/mm3 BMP 01/07/25 07:56 Sodium 139 Potassium 4.1 Chloride 104 Carbon Dioxide 25 BUN 21 H Creatinine 0.84 Glucose 147 H Calcium 8.8 Liver Function 01/07/25 Range/Units 07:56 Total Bilirubin 0.5 (0.2-1.3) mg/dL AST 32 (14-36) U/L ALT 21 (6-35) U/L Alkaline Phosphatase 101 (38-126) U/L Albumin 4.2 (3.5-5.1) g/dL Urine 01/07/25 Range/Units 08:42 Urine Color Yellow (Yellow) Urine Appearance Clear (Clear) Urine pH 5.0 (5.0-9.0) Ur Specific [place] 1.020 (1.001-1.035) Urine Protein Trace (Negative) mg/dL Urine Glucose (UA) Negative (Negative) mg/dL Assessment and Plan Assessment and plan (1) Acute hypoxic respiratory failure: Code(s): J96.01 - Acute respiratory failure with hypoxia Status: Acute Assessment and Plan: - CXR: Bibasilar chronic interstitial disease and/or COPD change. - no significant leukocytosis, no anemia, viral PCR negative - EKG, initial showed SVT, rate 114, moderate ST depression, awaiting formal read. - initially 86% on room air despite nebulizer, now requiring BiPAP to maintain O2 saturation greater than 92%. Will continue and trial the patient off this evening. Suspect acute hypoxic respiratory failure secondary to COPD exacerbation, see below. (2) COPD exacerbation: Code(s): J44.1 - Chronic obstructive pulmonary disease with (acute) exacerbation Status: Acute Assessment and Plan: - [facility]ad [facility] - start Solu-Medrol 60 mg Q 6, initial loading dose of 125 mg - start ceftriaxone and azithromycin, /15 - continue Trelegy daily - supportive care - current smoker, interested in Chantix. Has previously had side effects with nicotine patch and has previously been on Wellbutrin without success in snf cessation. (3) Benign essential hypertension: Code(s): I10 - Essential (primary) hypertension Status: Chronic Assessment and Plan: - chronic, currently 124/53 - continue home medications: Atenolol, telmisartan - monitor Plan Diet: Heart healthy GI Prophylaxis: Not currently indicated DVT Prophylaxis: SCDs Lines: Peripheral Code Status: Full code Quality VTE Prophylaxis VTE prophylaxis: mechanical ordered Hospitalist MIPS Advance Care Plan I have confirmed that the patient's Advanced Care Plan is present, code status is documented, or surrogate decision maker is listed in patient medical record.: Yes Medication Reconciliation I have utilized all available resources to obtain, update and review the patients current medications (includes all prescriptions, OTC, herbals, cannabis, and nutritional supplements).: Yes
[2025-01-07] MEDS: methylPREDNISolone SOD SUCC 125 MG VIAL 60 MG IV PUSH ×2 (17:52→23:36)
[2025-01-07] MEDS: IPRATROPIUM 0.5 MG/ALBUTEROL SULFATE 2.5 MG AMPUL.NEB 3 ML INHALATION (19:43)
[2025-01-07] MEDS: atenoloL 50 MG TABLET PO (22:08)
[2025-01-07] MEDS: guaiFENesin 12 HR 600 MG TABCR PO (22:08)
[2025-01-07] MEDS: SIMVASTATIN 20 MG TABLET 40 MG PO (22:09)
[2025-01-07] MEDS: TELMISARTAN 20 MG TABLET PO (22:09)
[2025-01-07] MEDS: ALPRAZolam (*CRX) 0.5 MG TABLET 1 MG PO (23:35)
[2025-01-08] VITALS (28 sets, daily range): BP systolic 126–145; BP diastolic 58–91; PULSE 67–106; RESP 16–36; TEMP 36.2–36.6; O2SAT 90–100
[2025-01-08] MEDS: IPRATROPIUM 0.5 MG/ALBUTEROL SULFATE 2.5 MG AMPUL.NEB 3 ML INHALATION ×4 (01:53→20:06)
[2025-01-08 04:49] LABS: Basophils Percent Auto 0.5 % (0.2-1.2); Hematocrit 40.2 % (37.0-47.0); Hemoglobin 12.9 g/dL (12.0-15.0); Immature Granulocyte Absolute 0.02 K/mm3 (0.00-0.031); Immature Granulocyte Percent A 0.3 % (0-0.5); Lymphocytes Absolute Auto 2.19 K/mm3 (0.9-3.2); Lymphocytes Percent Auto 33.9 % (18.3-44.2); Mean Corpuscular HGB Conc 32.1 g/dl (32-36); Mean Corpuscular Hemoglobin 29.9 pg (26-34); Mean Corpuscular Volume 93.1 fl (80-100); Mean Platelet Volume 9.9 fl (7.4-10.4); Monocytes Absolute Auto 0.2 K/mm3 (0.1-0.6); Monocytes Percent Auto 2.9 % (2.6-8.5); Neutrophils Percent Auto 62.4 % (45.5-73.1); Platelet Count Result 181 k/mm3 (150-375); Red Blood Count 4.32 M/mm3 (4.2-5.4); Red Cell Distribution Width 13.9 % (11.5-14.5); White Blood Count 6.5 K/mm3 (4.5-10.0)
[2025-01-08 05:07] LABS: Anion Gap 9 mmol/L (4-12); Blood Urea Nitrogen 20 mg/dL (7-17); Carbon Dioxide 26 mmol/L (22-30); Chloride 104 mmol/L (98-107); Estimated CRCL calculation 49 ml/min; Estimated Glomerular Filt Rate > 60; Glucose 155 mg/dL (65-110); Potassium 4.4 mmol/L (3.4-5.0); Sodium 139 mmol/L (137-145)
[2025-01-08] MEDS: methylPREDNISolone SOD SUCC 125 MG VIAL 60 MG IV PUSH ×3 (06:45→18:54)
[2025-01-08] MEDS: FLUTICASONE/UMECLIDIN/VILANTER 100-62.5-25 MCG ELLIPTA 1 PUFF INHALATION (07:45)
[2025-01-08 08:44] LABS: Non-Invasive Expiratory Pressure 6 CMH2O; Non-Invasive Inspiratory Pressure 10 CMH2O; Non-Invasive Vent Rate 4 /MIN
[2025-01-08] MEDS: atenoloL 50 MG TABLET PO ×2 (08:53→20:50)
[2025-01-08] MEDS: RALOXIFENE HCL (*CHEMO) 60 MG TABLET PO (08:54)
[2025-01-08] MEDS: guaiFENesin 12 HR 600 MG TABCR PO ×2 (08:54→20:49)
[2025-01-08] MEDS: TELMISARTAN 20 MG TABLET PO ×2 (08:54→20:49)
[2025-01-08] MEDS: ESCITALOPRAM OXALATE 10 MG TABLET 20 MG PO (08:54)
[2025-01-08] MEDS: CHOLECALCIFEROL 1,000 UNITS TABLET 1000 UNITS PO (08:54)
[2025-01-08] MEDS: AZITHROMYCIN 500 MG/NS 250 ML 500 MG/250 ML BAG 250 MG IVPB (08:55)
[2025-01-08] MEDS: ASPIRIN 81 MG ENTERIC TABLET PO (08:55)
--- NOTE | 2025-01-08 15:53 | PM.IMPN ---
Progress Note: A&P Assessment and Plan (1) Acute hypoxic respiratory failure: Code(s): J96.01 - Acute respiratory failure with hypoxia Status: Acute Assessment and Plan: - CXR: Bibasilar chronic interstitial disease and/or COPD change. - no significant leukocytosis, no anemia, viral PCR negative - EKG, initial showed SVT, rate 114, moderate ST depression, awaiting formal read. - initially 86% on room air despite nebulizer, now requiring BiPAP to maintain O2 saturation greater than 92%. Will continue and trial the patient off this evening. Suspect acute hypoxic respiratory failure secondary to COPD exacerbation, see below. (2) COPD exacerbation: Code(s): J44.1 - Chronic obstructive pulmonary disease with (acute) exacerbation Status: Acute Assessment and Plan: - Duonebs marcelino - start Solu-Medrol 60 mg Q 6, initial loading dose of 125 mg - start ceftriaxone and azithromycin, 01/07 - continue Trelegy daily - supportive care - current smoker, interested in Chantix. Has previously had side effects with nicotine patch and has previously been on Wellbutrin without success in long term acute care registered nurse cessation. (3) Benign essential hypertension: Code(s): I10 - Essential (primary) hypertension Status: Chronic Assessment and Plan: - chronic, currently 124/53 - continue home medications: Atenolol, telmisartan - monitor Plan Patient with long history of smoking and now present shortness of breath and acute respiratory failure with hypoxia most likely patient has exacerbation of COPD patient is being treated with methylprednisone and Duo neb, patient is also treated with ceftriaxone azithromycin to cover for atypical pneumonia, patient states feeling much better compared to when she arrived, patient is quite anxious and and this makes her breathing worse patient is being treated with Ativan as needed and will monitor, will have a PT OT evaluate the patient patient will benefit going to rehab before discharging home Diet: Heart healthy GI Prophylaxis: Not currently indicated DVT Prophylaxis: SCDs Lines: Peripheral Code Status: Full code Subjective Date/time seen: 01/08/25 15:53 Interval history: Shortness of Breath H&P-Narrative: 79 y/o F presents here with shortness of breath with PMH of COPD, IBS, myocardial infarction, HTN, HLD, anxiety, depression, osteoporosis, tobacco use, and osteoporosis. The patient presents here from home via EMS for further evaluation of shortness of breath. She reports she began to feel short of breath night. Initially occurred with exertion and then became severe today where she felt she could not take a deep breath. The patient utilize her home inhalers and nebulizers without relief Denies fever, chills, body aches, congestion, runny nose, or chest pain. Patient reports she would have been evaluated last night if not for the severe weather but elected to call EMS today. Upon their arrival, the patient was 85% on room air. She does not require supplemental oxygen at baseline. She was given an albuterol nebulizer and a DuoNeb treatment. She arrived to the emergency department with labored breathing, tachypneic, tachycardic, and tripoding with an O2 sat of 87% on room air. Patient was subsequently placed on a nasal cannula and transition to BiPAP. The patient currently falls with pulmonology, last visit on 01/03/2025 with Rafael GORDON. Current regimen: Trelegy 100 1 puff daily and Albuterol p.r.n. at this visit she was prescribed doxycycline 100 mg daily x7 days due to worsening shortness of breath and increased sputum production. The patient was instructed to monitor symptoms with a week and start the doxycycline over the weekend if no improvement. The patient reports she had started this medication and has received a total of 4 doses. Patient is a current smoker - 5 cigarettes per day. Patient with long history of smoking and now present shortness of breath and acute respiratory failure with hypoxia most likely patient has exacerbation of COPD patient is being treated with methylprednisone and Duo neb, patient is also treated with ceftriaxone azithromycin to cover for atypical pneumonia, patient states feeling much better compared to when she arrived, patient is quite anxious and and this makes her breathing worse patient is being treated with Ativan as needed and will monitor, will have a PT OT evaluate the patient patient will benefit going to rehab before discharging home Review of Systems Review of Systems: All systems reviewed & are unremarkable except as noted in HPI and below Objective Data Vital Signs Vital Signs: Vital Signs - 24 hr 01/07/25 16:35 01/07/25 17:27 01/07/25 17:34 Temperature Pulse Rate 108 H 109 H 109 H Respiratory Rate 32 H 24 H 24 H Blood Pressure 130/68 130/68 Pulse Oximetry 97 98 98 Oxygen Delivery BiPAP Oxygen Flow Rate Fraction of Inspired Oxygen 01/07/25 17:59 01/07/25 17:59 01/07/25 19:43 Temperature Pulse Rate 109 H 109 H 105 H Respiratory Rate 24 H 20 Blood Pressure Pulse Oximetry 98 Oxygen Delivery High Flow Therapy with Na Oxygen Flow Rate 5 Fraction of Inspired Oxygen 01/07/25 19:54 01/07/25 20:00 01/07/25 20:00 Temperature 36.7 C Pulse Rate 105 H 103 H 105 H Respiratory Rate 20 18 Blood Pressure 127/57 L Pulse Oximetry 100 Oxygen Delivery Oxygen Flow Rate Fraction of Inspired Oxygen 01/07/25 20:17 01/07/25 21:30 01/07/25 22:00 Temperature Pulse Rate 105 H 103 H 102 H Respiratory Rate 20 18 Blood Pressure Pulse Oximetry 95 100 Oxygen Delivery Room Air High Flow Therapy with Na Oxygen Flow Rate 5 Fraction of Inspired Oxygen 21 01/07/25 22:00 01/07/25 22:08 01/07/25 23:50 Temperature Pulse Rate 102 H 102 H 102 H Respiratory Rate 20 20 Blood Pressure Pulse Oximetry 97 97 Oxygen Delivery Nasal Cannula Nasal Cannula Oxygen Flow Rate 4 4 Fraction of Inspired Oxygen 01/08/25 00:00 01/08/25 00:00 01/08/25 01:54 Temperature 36.2 C L Pulse Rate 93 84 98 Respiratory Rate 20 20 Blood Pressure 142/75 H Pulse Oximetry 99 Oxygen Delivery Oxygen Flow Rate Fraction of Inspired Oxygen 01/08/25 02:00 01/08/25 02:05 01/08/25 02:26 Temperature Pulse Rate 81 98 84 Respiratory Rate 20 24 H Blood Pressure Pulse Oximetry 90 Oxygen Delivery BiPAP Oxygen Flow Rate Fraction of Inspired Oxygen 01/08/25 04:00 01/08/25 04:00 01/08/25 04:00 Temperature 36.6 C Pulse Rate 87 87 85 Respiratory Rate 18 18 Blood Pressure 142/91 H Pulse Oximetry 91 91 Oxygen Delivery BiPAP Oxygen Flow Rate Fraction of Inspired Oxygen 21 01/08/25 04:44 01/08/25 05:51 01/08/25 07:33 Temperature Pulse Rate 84 80 Respiratory Rate 16 Blood Pressure Pulse Oximetry 90 96 Oxygen Delivery BiPAP Nasal Cannula Oxygen Flow Rate 4 Fraction of Inspired Oxygen 36 01/08/25 07:33 01/08/25 07:45 01/08/25 08:00 Temperature 36.4 C L Pulse Rate 77 96 92 Respiratory Rate 20 24 H 36 H Blood Pressure 138/67 Pulse Oximetry 98 Oxygen Delivery Oxygen Flow Rate Fraction of Inspired Oxygen 01/08/25 08:00 01/08/25 08:00 01/08/25 08:53 Temperature Pulse Rate 97 97 97 Respiratory Rate 36 H Blood Pressure Pulse Oximetry 98 Oxygen Delivery Nasal Cannula Oxygen Flow Rate 4 Fraction of Inspired Oxygen 01/08/25 09:55 01/08/25 11:27 01/08/25 11:27 Temperature Pulse Rate 97 79 97 Respiratory Rate 36 H Blood Pressure Pulse Oximetry 98 Oxygen Delivery Nasal Cannula Oxygen Flow Rate 4 Fraction of Inspired Oxygen 01/08/25 11:29 01/08/25 11:53 01/08/25 13:40 Temperature 36.5 C Pulse Rate 97 67 Respiratory Rate 28 H Blood Pressure 142/58 H Pulse Oximetry 97 100 Oxygen Delivery Nasal Cannula Oxygen Flow Rate 4 Fraction of Inspired Oxygen 36 01/08/25 13:40 01/08/25 13:50 01/08/25 14:04 Temperature Pulse Rate 74 78 Respiratory Rate 28 H 24 H Blood Pressure Pulse Oximetry 98 Oxygen Delivery Nasal Cannula Oxygen Flow Rate 3 Fraction of Inspired Oxygen 32 Intake/Output Intake/Output: Intake & Output 01/05/25 01/06/25 01/07/25 01/08/25 23:59 23:59 23:59 23:59 Intake Total 500 490 Output Total 100 550 Balance 400 -60 Meds/Results Medications: Active Medications Generic Name Dose Route Start Last Admin Trade Name Freq PRN Reason Stop Dose Admin Acetaminophen 500 mg 01/07/25 14:24 Acetaminophen 500 Mg Tablet PO Q6H PRN Mild Pain (1-3) or Fever Albuterol/Ipratropium 3 ml 01/07/25 20:00 01/08/25 13:40 Ipratropium 0.5 Mg/Albuterol Sulfate 2.5 Mg Ampul.Neb 3 Ml INHALATION 3 ml Q6HRT MARCELINO Administration Alprazolam 1 mg 01/07/25 22:05 01/07/25 23:35 Alprazolam (*Crx) 0.5 Mg Tablet PO 1 mg HS MARCELINO Administration Aspirin 81 mg 01/08/25 09:00 01/08/25 08:55 Aspirin 81 Mg Enteric Tablet PO 81 mg DAILY MARCELINO Administration Atenolol 50 mg 01/07/25 21:20 01/08/25 08:53 Atenolol 50 Mg Tablet PO 50 mg Q12HR MARCELINO Administration Benzonatate 100 mg 01/07/25 14:24 Benzonatate 100 Mg Capsule PO TID PRN Cough Escitalopram Oxalate 20 mg 01/08/25 09:00 01/08/25 08:54 Escitalopram Oxalate 10 Mg Tablet PO 20 mg DAILY MARCELINO Administration Fluticasone/Umeclidinium/Vilanterol 1 puff 01/08/25 09:00 01/08/25 07:45 Fluticasone/Umeclidin/Vilanter 100-62.5-25 Mcg Ellipta INHALATION 1 puff DAILY MARCELINO Administration Guaifenesin 600 mg 01/07/25 21:00 01/08/25 08:54 Guaifenesin 12 Hr 600 Mg Tabcr PO 600 mg Q12HR MARCELINO Administration Ceftriaxone Sodium 1 gm in 50 mls @ 100 mls/hr 01/08/25 09:00 01/08/25 08:55 Rocephin 1 Gm/Ns 50 Ml IVPB 100 mls/hr DAILY MARCELINO Administration Azithromycin 500 mg in 250 mls @ 250 mls/hr 01/08/25 09:00 01/08/25 08:55 Zithromax IVPB 250 mls/hr DAILY MARCELINO Administration Methylprednisolone Sodium Succinate 60 mg 01/07/25 18:00 01/08/25 13:27 Methylprednisolone Sod Succ 125 Mg Vial IV PUSH 60 mg Q6HR MARCELINO Administration Raloxifene HCl 60 mg 01/08/25 09:00 01/08/25 08:54 Raloxifene Hcl (*Chemo) 60 Mg Tablet PO 60 mg DAILY MARCELINO Administration Simvastatin 40 mg 01/07/25 21:20 01/07/25 22:09 Simvastatin 20 Mg Tablet PO 40 mg HS MARCELINO Administration Telmisartan 20 mg 01/07/25 21:20 01/08/25 08:54 Telmisartan 20 Mg Tablet PO 20 mg Q12HR MARCELINO Administration Vitamin D 1,000 units 01/08/25 09:00 01/08/25 08:54 Cholecalciferol 1,000 Units Tablet PO 1,000 units DAILY MARCELINO Administration Radiology Results: ITS Impressions Chest X-Ray 01/07/25 08:05 Impression: Bibasilar chronic interstitial disease and/or COPD change. Labs Labs: Laboratory Results - last 24 hr 01/07/25 01/08/25 08:10 04:30 WBC 6.5 RBC 4.32 Hgb 12.9 Hct 40.2 MCV 93.1 MCH 29.9 MCHC 32.1 RDW 13.9 Plt Count 181 MPV 9.9 Immature Gran % (Auto) 0.3 Neut % (Auto) 62.4 Lymph % (Auto) 33.9 [place] % (Auto) 2.9 Eos % (Auto) 0.0 Baso % (Auto) 0.5 Lymph # (Auto) 2.19 [place] # (Auto) 0.2 Eos # (Auto) 0.0 Baso # (Auto) 0.0 Abs Immat Gran (auto) 0.02 Absolute Neuts (auto) 4.0 Absolute Nucleated RBC 0.000 Nucleated RBC % 0.0 Vent Rate 4 Expiratory Pressure 6 Inspiratory Pressure 10 Sodium 139 Potassium 4.4 Chloride 104 Carbon Dioxide 26 Anion Gap 9 BUN 20 H Creatinine 0.66 L Estim Creat Clear Calc 49 Estimated GFR > 60 Glucose 155 H Calcium 9.0 Quality VTE Prophylaxis VTE prophylaxis: mechanical ordered
[2025-01-08] MEDS: ALPRAZolam (*CRX) 0.5 MG TABLET 1 MG PO (20:49)
[2025-01-08] MEDS: SIMVASTATIN 20 MG TABLET 40 MG PO (20:50)
[2025-01-08] MEDS: BENZONATATE 100 MG CAPSULE PO (20:50)
[2025-01-09] VITALS (27 sets, daily range): BP systolic 126–167; BP diastolic 53–81; PULSE 75–110; RESP 18–28; TEMP 36.2–37; O2SAT 93–100
[2025-01-09] MEDS: methylPREDNISolone SOD SUCC 125 MG VIAL 60 MG IV PUSH ×4 (00:39→21:14)
[2025-01-09] MEDS: IPRATROPIUM 0.5 MG/ALBUTEROL SULFATE 2.5 MG AMPUL.NEB 3 ML INHALATION ×4 (02:38→19:49)
[2025-01-09 04:06] LABS: Basophils Percent Auto 0.1 % (0.2-1.2); Hemoglobin 12.2 g/dL (12.0-15.0); Immature Granulocyte Absolute 0.08 K/mm3 (0.00-0.031); Immature Granulocyte Percent A 0.5 % (0-0.5); Lymphocytes Absolute Auto 2.87 K/mm3 (0.9-3.2); Lymphocytes Percent Auto 19.1 % (18.3-44.2); Mean Corpuscular HGB Conc 32.1 g/dl (32-36); Mean Corpuscular Hemoglobin 29.8 pg (26-34); Mean Corpuscular Volume 92.9 fl (80-100); Monocytes Absolute Auto 0.4 K/mm3 (0.1-0.6); Monocytes Percent Auto 2.7 % (2.6-8.5); Neutrophils Absolute Auto 11.6 K/mm3 (1.3-6.7); Neutrophils Percent Auto 77.6 % (45.5-73.1); Platelet Count Result 190 k/mm3 (150-375); Red Blood Count 4.09 M/mm3 (4.2-5.4)
[2025-01-09 04:23] LABS: Anion Gap 7 mmol/L (4-12); Blood Urea Nitrogen 25 mg/dL (7-17); Calcium 9.2 mg/dL (8.4-10.2); Carbon Dioxide 30 mmol/L (22-30); Chloride 104 mmol/L (98-107); Estimated CRCL calculation 43 ml/min; Estimated Glomerular Filt Rate > 60; Glucose 150 mg/dL (65-110); Potassium 5.3 mmol/L (3.4-5.0); Sodium 141 mmol/L (137-145)
[2025-01-09] MEDS: atenoloL 50 MG TABLET PO ×2 (08:11→21:16)
[2025-01-09] MEDS: guaiFENesin 12 HR 600 MG TABCR PO ×2 (08:11→21:16)
[2025-01-09] MEDS: TELMISARTAN 20 MG TABLET PO ×2 (08:11→21:16)
[2025-01-09] MEDS: RALOXIFENE HCL (*CHEMO) 60 MG TABLET PO (08:11)
[2025-01-09] MEDS: CHOLECALCIFEROL 1,000 UNITS TABLET 1000 UNITS PO (08:11)
[2025-01-09] MEDS: ASPIRIN 81 MG ENTERIC TABLET PO (08:11)
[2025-01-09] MEDS: ESCITALOPRAM OXALATE 10 MG TABLET 20 MG PO (08:11)
[2025-01-09] MEDS: AZITHROMYCIN 500 MG/NS 250 ML 500 MG/250 ML BAG 250 MG IVPB (08:17)
[2025-01-09] MEDS: FLUTICASONE/UMECLIDIN/VILANTER 100-62.5-25 MCG ELLIPTA 1 PUFF INHALATION (09:12)
[2025-01-09] MEDS: FUROSEMIDE INJ 40 MG/4 ML VIAL 20 MG IV PUSH (11:57)
[2025-01-09] MEDS: ALPRAZolam (*CRX) 0.25 MG TABLET PO (12:43)
--- NOTE | 2025-01-09 13:11 | P.CONCA_ITS ---
Assessment and Plan Assessment and plan (1) COPD exacerbation: Code(s): J44.1 - Chronic obstructive pulmonary disease with (acute) exacerbation Status: Acute Plan 79-year-old woman with CAD (seen on CT chest), COPD, hypertension, hyperlipidemia, anxiety, and depression presented with sudden-onset shortness of breath Shortness of breath -likely secondary to COPD exacerbation -will follow-up transthoracic echocardiogram -if respiratory status does not improve with COPD management/treatment, would recommend ruling out pulmonary embolism Coronary artery disease -on aspirin 81 mg p.o. daily Hyperlipidemia -continue simvastatin 40 mg every evening History of Present Illness History of Present Illness Consult date/time: 01/09/25 13:11 Requesting physician: Zachary Alonzo MD Consult reason: shortness of breath Reason For Visit: COPD,PNEUMONIA Narrative: 79-year-old woman with CAD (seen on CT chest), COPD, hypertension, hyperlipidemia, anxiety, and depression presented with sudden-onset shortness of breath. Last week she started to develop shortness of breath suddenly that is limiting her physical activity. Typically she is able to ambulate outside of her house as well as do chores within her house. She was even able to shovel the snow this past winter without any chest discomfort or significant shortness of breath. Denies any orthopnea or lower extremity swelling. Has associated rhinorrhea and productive cough recently. Review of Systems 2 Cardiovascular: Cardiovascular: Reports as per HPI Respiratory: Respiratory: Reports as per HPI [facility] Past Medical History Medical History (Updated 01/07/25 @ 14:22 by Paz Peres APRN) Tobacco use disorder Insomnia Chronic obstructive pulmonary disease, unspecified Postmenopausal Irritable bowel syndrome with diarrhea Vitamin D deficiency, unspecified Osteoporosis Mixed hyperlipidemia Atherosclerosis of aorta Bilateral carotid bruits History of OR (myocardial infarction) Atherosclerotic heart disease of [place] coronary artery without angina pectoris Generalized anxiety disorder MDD (major depressive disorder), recurrent episode, moderate Ambulatory dysfunction Emphysema of lung Benign essential hypertension Surgical History Surgical History Presence of right artificial hip joint Family History Family History Mother Family history of premature coronary heart disease, Onset Age: 74 Other Family history of elevated blood lipids Family history of heart disease in male family member before age 55 Family history of obesity Hypertension Social History Social History Social History: Smoking packs per day: 1 Smoking cigarettes per day: 20.0 Years smoked: 25 Smoking pack-years: 25.00 Smoking status: Current some day smoker Second hand tobacco smoke exposure: Yes Alcohol intake: never Substance use: never Substance use type: does not use Do You Feel Safe in your Home?: Yes Lack of Transportation: No Lack of Food: Never True Current Housing: I Have Housing Concerned About Future Housing: No Difficulty Paying Gas/Electric Bills: No Difficulty Paying for Meds: No Currently Unemployed: YES Education: Don't Know Difficulty w/ Childcare or Family Care: No Living arrangements: with family Additional living arrangements comments: Pt and her brother live together. Occupation/Education: retired Gender identity (if verbalized by the patient): Female Sexual Orientation (if Verbalized by the Patient): Straight or Heterosexual Spiritual care concerns: No Meds Home Medications and Allergies Home Medications ?Medication ?Instructions ?Recorded ?Confirmed ?Type aspirin 81 mg tablet,delayed 81 mg PO DAILY 11/01/19 01/07/25 History release (Adult Low Dose Aspirin) cholecalciferol (vitamin D3) 25 25 mcg PO DAILY 07/04/21 01/07/25 History mcg (1,000 unit) capsule telmisartan 20 mg tablet See Rx Instructions .Route 07/20/24 01/07/25 Rx .COMPLEX #180 tabs albuterol sulfate 90 mcg/actuation 2 inh inhalation Q4H PRN shortness 09/09/24 01/07/25 Rx aerosol inhaler of breath or wheezing #8.5 grams fluticasone fur. 100 mcg-umeclid 1 inh inhalation DAILY #60 ea 10/04/24 01/07/25 Rx 62.5 mcg-vilant 25 mcg inhalat.powder (Trelegy Ellipta) simvastatin 40 mg tablet See Rx Instructions .Route 10/21/24 01/07/25 Rx .COMPLEX #90 tabs atenolol 50 mg tablet See Rx Instructions .Route 11/21/24 01/07/25 Rx .COMPLEX #180 tabs raloxifene 60 mg tablet See Rx Instructions .Route 11/21/24 01/07/25 Rx .COMPLEX #100 tabs escitalopram oxalate 20 mg tablet 20 mg PO DAILY #90 tabs 12/22/24 01/07/25 Rx doxycycline hyclate 100 mg tablet 100 mg PO DAILY #7 tabs 01/03/25 01/07/25 Rx alprazolam 1 mg tablet 1 mg PO HS 01/07/25 01/07/25 History bupropion HCl 150 mg tablet,12 hr 150 mg PO Q12H 01/07/25 01/07/25 History sustained-release fluticasone fur. 100 mcg-umeclid 1 inh inhalation DAILY 01/07/25 01/07/25 History 62.5 mcg-vilant 25 mcg inhalat.powder (Trelegy Ellipta) Allergies Allergy/AdvReac Type Severity Reaction Status Date / Time tramadol Allergy Unknown Itching Verified 01/07/25 07:48 sulfamethoxazole (From AdvReac Intermediate Nausea and Verified 01/07/25 07:48 Bactrim) Vomiting trimethoprim (From Bactrim) AdvReac Intermediate Nausea and Verified 01/07/25 07:48 Vomiting Vital Signs Vital Signs - 24 hr 01/08/25 13:40 01/08/25 13:40 01/08/25 13:50 Temperature Pulse Rate 74 78 Respiratory Rate 28 H 24 H Blood Pressure Pulse Oximetry 100 Oxygen Delivery Nasal Cannula Oxygen Flow Rate 4 Fraction of Inspired Oxygen 36 01/08/25 14:04 01/08/25 16:00 01/08/25 16:00 Temperature 36.4 C Pulse Rate 102 H 80 Respiratory Rate 20 20 Blood Pressure 129/58 L Pulse Oximetry 98 96 96 Oxygen Delivery Nasal Cannula Nasal Cannula Oxygen Flow Rate 3 4 Fraction of Inspired Oxygen 32 01/08/25 16:00 01/08/25 18:00 01/08/25 20:00 Temperature 36.4 C L Pulse Rate 102 H 90 87 Respiratory Rate 20 Blood Pressure 145/70 H Pulse Oximetry 96 Oxygen Delivery Oxygen Flow Rate Fraction of Inspired Oxygen 01/08/25 20:00 01/08/25 20:06 01/08/25 20:06 Temperature Pulse Rate 83 87 87 Respiratory Rate 24 H 24 H Blood Pressure Pulse Oximetry 96 Oxygen Delivery Nasal Cannula Oxygen Flow Rate 3 Fraction of Inspired Oxygen 32 01/08/25 20:15 01/08/25 20:50 01/08/25 21:00 Temperature Pulse Rate 92 106 H Respiratory Rate 20 Blood Pressure Pulse Oximetry 96 Oxygen Delivery Nasal Cannula Oxygen Flow Rate 3 Fraction of Inspired Oxygen 01/08/25 22:00 01/08/25 23:49 01/09/25 00:00 Temperature 36.4 C Pulse Rate 88 88 85 Respiratory Rate 18 Blood Pressure 126/60 Pulse Oximetry 98 Oxygen Delivery Oxygen Flow Rate Fraction of Inspired Oxygen 01/09/25 00:30 01/09/25 00:55 01/09/25 00:55 Temperature Pulse Rate 90 Respiratory Rate 25 H Blood Pressure Pulse Oximetry 94 96 96 Oxygen Delivery Nasal Cannula BiPAP BiPAP Oxygen Flow Rate 3 Fraction of Inspired Oxygen 21 01/09/25 02:00 01/09/25 02:38 01/09/25 02:38 Temperature Pulse Rate 87 87 87 Respiratory Rate 28 H 26 H Blood Pressure Pulse Oximetry 96 Oxygen Delivery BiPAP Oxygen Flow Rate Fraction of Inspired Oxygen 01/09/25 02:50 01/09/25 04:00 01/09/25 04:00 Temperature 36.8 C Pulse Rate 88 89 110 H Respiratory Rate 28 H 24 H Blood Pressure 166/81 H Pulse Oximetry 93 Oxygen Delivery Oxygen Flow Rate Fraction of Inspired Oxygen 01/09/25 04:10 01/09/25 06:00 01/09/25 08:00 Temperature 36.2 C L Pulse Rate 90 102 H Respiratory Rate 28 H Blood Pressure 167/77 H Pulse Oximetry 95 100 Oxygen Delivery Nasal Cannula Oxygen Flow Rate 3 Fraction of Inspired Oxygen 01/09/25 08:00 01/09/25 08:00 01/09/25 08:11 Temperature Pulse Rate 97 108 H 97 Respiratory Rate 28 H Blood Pressure Pulse Oximetry 100 Oxygen Delivery Nasal Cannula Oxygen Flow Rate 2 Fraction of Inspired Oxygen 01/09/25 09:15 01/09/25 09:15 01/09/25 09:34 Temperature Pulse Rate 90 89 Respiratory Rate 20 20 Blood Pressure Pulse Oximetry 97 Oxygen Delivery Nasal Cannula Oxygen Flow Rate 2 Fraction of Inspired Oxygen 01/09/25 10:00 01/09/25 12:00 01/09/25 12:00 Temperature Pulse Rate 94 94 82 Respiratory Rate 20 Blood Pressure Pulse Oximetry 97 Oxygen Delivery Room Air Oxygen Flow Rate Fraction of Inspired Oxygen 01/09/25 12:00 Temperature 36.6 C Pulse Rate 78 Respiratory Rate 18 Blood Pressure 158/79 H Pulse Oximetry 98 Oxygen Delivery Oxygen Flow Rate Fraction of Inspired Oxygen Exam 2 Const: General: comfortable HENMT: Mouth: Yes moist mucous membranes Eyes: EOM: EOMs intact bilaterally Neck: Neck: no JVD Resp: Effort & Inspection: normal respiratory effort Auscultation: rales Other: Rales in left lower lung gray Cardio: Rate: regular rate Rhythm: regular rhythm GI: GI Palp: Yes Soft to palpation Neuro: Speech: normal speech Extrem: General: no pedal edema Results Labs and Meds 01/09/25 03:52 01/09/25 03:52 Lab results: CBC 01/09/25 Range/Units 03:52 WBC 15.0 H (4.5-10.0) K/mm3 RBC 4.09 L (4.2-5.4) M/mm3 Hgb 12.2 (12.0-15.0) g/dL Hct 38.0 (37.0-47.0) % Plt Count 190 (150-375) k/mm3 Lymph # (Auto) 2.87 (0.9-3.2) K/mm3 [place] # (Auto) 0.4 (0.1-0.6) K/mm3 Eos # (Auto) 0.0 (0-0.3) K/mm3 Baso # (Auto) 0.0 (0.0-0.1) K/mm3 Comprehensive Metabolic Panel 01/09/25 Range/Units 03:52 Sodium 141 (137-145) mmol/L Potassium 5.3 H (3.4-5.0) mmol/L Chloride 104 (98-107) mmol/L Carbon Dioxide 30 (22-30) mmol/L BUN 25 H (7-17) mg/dL Creatinine 0.75 (0.7-1.0) mg/dL Glucose 150 H (65-110) mg/dL Calcium 9.2 (8.4-10.2) mg/dL Intake and Output 01/08/25 01/09/25 01/09/25 23:59 07:59 15:59 Intake Total 420 350 300 Balance 420 350 300 Intake: IV 300 Azithromycin 500 mg/Ns 250 ml 250 500 mg In 250 ml @ 250 mls/hr IVPB DAILY MARCELINO Rx#:[id number] cefTRIAXone 1 GM/NS 50 ML 1 gm 50 In 50 ml @ 100 mls/hr IVPB DAILY MARCELINO Rx#:[id number] Oral 420 350 Other: # Unmeasured Voids 3 Patient Weight 01/09/25 23:59 Weight 64.2 kg
--- NOTE | 2025-01-09 14:02 | P.CONPL_ITS ---
Assessment and Plan Assessment and plan (1) COPD exacerbation: Code(s): J44.1 - Chronic obstructive pulmonary disease with (acute) exacerbation Status: Acute Assessment and Plan: This patient, with a known history of moderate obstructive airway disease and previous exacerbations, on maintenance bronchodilators, presented with severe shortness of breath. She experienced acute metabolic acidosis, likely due to elevated lactic acid levels, and severe hypoxemia without hypercapnia, all of which are related to another COPD exacerbation triggered by an upper respiratory infection. The patient has responded well to treatment, which includes BiPAP support, short-acting bronchodilators, IV steroids, and antibiotics. Currently, on physical examination, she exhibits no wheezing. Chest imaging studies show no new infiltrates, ruling out a lower respiratory tract infection. Plan: I concur with the current treatment regimen, which includes short-acting bronchodilators, IV steroids, antibiotics, and BiPAP support. I have adjusted the IV steroids to a twice-daily (b.i.d.) schedule and recommend continuing the current antibiotic regimen and BiPAP support at night. The patient should be started on subcutaneous prophylaxis for deep vein thrombosis (DVT) unless contraindicated. I will continue to follow the patient's progress in collaboration with you. (2) Personal history of nicotine dependence: Code(s): Z87.891 - Personal history of nicotine dependence Status: Acute (3) Anxiety: Code(s): F41.9 - Anxiety disorder, unspecified Status: Acute History of Present Illness History of Present Illness Consult date: 01/09/25 Chief complaint: COPD,PNEUMONIA Narrative: An 79-year-old female with a known history of Chronic Obstructive Pulmonary Disease (COPD) and previous exacerbations, who is chronically managed with a triple inhaler regimen, presented with a two-day history of progressively worsening shortness of breath. She was in her usual state of health until approximately one week ago, when she began experiencing a runny nose, frequent sneezing, and watery eyes. She did not report symptoms such as fever, chills, cough, or wheezing. Despite being prescribed an antibiotic by her supervisor [employer], there was no improvement after four days of treatment. Two days prior to hospitalization, she developed shortness of breath primarily during activities, which then progressed to dyspnea at rest. She reported significant difficulty in taking a deep breath and felt as though she could not breathe at all, fearing she was dying. In the emergency room, she was found to have hypoxemia on room air, and arterial blood gas analysis indicated acute metabolic acidosis with a normal pCO2. The patient was treated with nebulized short-acting bronchodilators and placed on BiPAP with pressures set at 10/6 cm H2O. A chest X-ray revealed no active lung disease. Currently, she has shown clinical improvement and is being treated with short-acting bronchodilators, intravenous steroids, and antibiotics for a COPD exacerbation. Pulmonary function testing conducted a couple of years ago indicated moderate obstructive airway disease with an FEV1 of approximately 1.24 L, or 69% of the predicted value. A chest CT scan showed advanced centrilobular emphysema. Review of Systems 2 Review of Systems: All systems reviewed & are unremarkable except as noted in HPI and below (HPI and below) [facility] Past Medical History Medical History (Updated 01/07/25 @ 14:22 by Paz Peres APRN) Tobacco use disorder Insomnia Chronic obstructive pulmonary disease, unspecified Postmenopausal Irritable bowel syndrome with diarrhea Vitamin D deficiency, unspecified Osteoporosis Mixed hyperlipidemia Atherosclerosis of aorta Bilateral carotid bruits History of [place] (myocardial infarction) Atherosclerotic heart disease of [place] coronary artery without angina pectoris Generalized anxiety disorder MDD (major depressive disorder), recurrent episode, moderate Ambulatory dysfunction Emphysema of lung Benign essential hypertension Surgical History Surgical History Presence of right artificial hip joint Family History Family History Mother Family history of premature coronary heart disease, Onset Age: 74 Other Family history of elevated blood lipids Family history of heart disease in male family member before age 55 Family history of obesity Hypertension Social History Social History Social History: Smoking packs per day: 1 Smoking cigarettes per day: 20.0 Years smoked: 25 Smoking pack-years: 25.00 Smoking status: Current some day smoker Second hand tobacco smoke exposure: Yes Alcohol intake: never Substance use: never Substance use type: does not use Do You Feel Safe in your Home?: Yes Lack of Transportation: No Lack of Food: Never True Current Housing: I Have Housing Concerned About Future Housing: No Difficulty Paying Gas/Electric Bills: No Difficulty Paying for Meds: No Currently Unemployed: YES Education: Don't Know Difficulty w/ Childcare or Family Care: No Living arrangements: with family Additional living arrangements comments: Pt and her brother live together. Occupation/Education: retired Gender identity (if verbalized by the patient): Female Sexual Orientation (if Verbalized by the Patient): Straight or Heterosexual Spiritual care concerns: No Meds Home Medications and Allergies Home Medications ?Medication ?Instructions ?Recorded ?Confirmed ?Type aspirin 81 mg tablet,delayed 81 mg PO DAILY 11/01/19 01/07/25 History release (Adult Low Dose Aspirin) cholecalciferol (vitamin D3) 25 25 mcg PO DAILY 07/04/21 01/07/25 History mcg (1,000 unit) capsule telmisartan 20 mg tablet See Rx Instructions .Route 07/20/24 01/07/25 Rx .COMPLEX #180 tabs albuterol sulfate 90 mcg/actuation 2 inh inhalation Q4H PRN shortness 09/09/24 01/07/25 Rx aerosol inhaler of breath or wheezing #8.5 grams fluticasone fur. 100 mcg-umeclid 1 inh inhalation DAILY #60 ea 10/04/24 01/07/25 Rx 62.5 mcg-vilant 25 mcg inhalat.powder (Trelegy Ellipta) simvastatin 40 mg tablet See Rx Instructions .Route 10/21/24 01/07/25 Rx .COMPLEX #90 tabs atenolol 50 mg tablet See Rx Instructions .Route 11/21/24 01/07/25 Rx .COMPLEX #180 tabs raloxifene 60 mg tablet See Rx Instructions .Route 11/21/24 01/07/25 Rx .COMPLEX #100 tabs escitalopram oxalate 20 mg tablet 20 mg PO DAILY #90 tabs 12/22/24 01/07/25 Rx doxycycline hyclate 100 mg tablet 100 mg PO DAILY #7 tabs 01/03/25 01/07/25 Rx alprazolam 1 mg tablet 1 mg PO HS 01/07/25 01/07/25 History bupropion HCl 150 mg tablet,12 hr 150 mg PO Q12H 01/07/25 01/07/25 History sustained-release fluticasone fur. 100 mcg-umeclid 1 inh inhalation DAILY 01/07/25 01/07/25 History 62.5 mcg-vilant 25 mcg inhalat.powder (Trelegy Ellipta) Allergies Allergy/AdvReac Type Severity Reaction Status Date / Time tramadol Allergy Unknown Itching Verified 01/07/25 07:48 sulfamethoxazole (From AdvReac Intermediate Nausea and Verified 01/07/25 07:48 Bactrim) Vomiting trimethoprim (From Bactrim) AdvReac Intermediate Nausea and Verified 01/07/25 07:48 Vomiting Vital Signs Vital Signs - 24 hr 01/08/25 14:04 01/08/25 16:00 01/08/25 16:00 Temperature 36.4 C Pulse Rate 102 H 80 Respiratory Rate 20 20 Blood Pressure 129/58 L Pulse Oximetry 98 96 96 Oxygen Delivery Nasal Cannula Nasal Cannula Oxygen Flow Rate 3 4 Fraction of Inspired Oxygen 32 01/08/25 16:00 01/08/25 18:00 01/08/25 20:00 Temperature 36.4 C L Pulse Rate 102 H 90 87 Respiratory Rate 20 Blood Pressure 145/70 H Pulse Oximetry 96 Oxygen Delivery Oxygen Flow Rate Fraction of Inspired Oxygen 01/08/25 20:00 01/08/25 20:06 01/08/25 20:06 Temperature Pulse Rate 83 87 87 Respiratory Rate 24 H 24 H Blood Pressure Pulse Oximetry 96 Oxygen Delivery Nasal Cannula Oxygen Flow Rate 3 Fraction of Inspired Oxygen 32 01/08/25 20:15 01/08/25 20:50 01/08/25 21:00 Temperature Pulse Rate 92 106 H Respiratory Rate 20 Blood Pressure Pulse Oximetry 96 Oxygen Delivery Nasal Cannula Oxygen Flow Rate 3 Fraction of Inspired Oxygen 01/08/25 22:00 01/08/25 23:49 01/09/25 00:00 Temperature 36.4 C Pulse Rate 88 88 85 Respiratory Rate 18 Blood Pressure 126/60 Pulse Oximetry 98 Oxygen Delivery Oxygen Flow Rate Fraction of Inspired Oxygen 01/09/25 00:30 01/09/25 00:55 01/09/25 00:55 Temperature Pulse Rate 90 Respiratory Rate 25 H Blood Pressure Pulse Oximetry 94 96 96 Oxygen Delivery Nasal Cannula BiPAP BiPAP Oxygen Flow Rate 3 Fraction of Inspired Oxygen 21 01/09/25 02:00 01/09/25 02:38 01/09/25 02:38 Temperature Pulse Rate 87 87 87 Respiratory Rate 28 H 26 H Blood Pressure Pulse Oximetry 96 Oxygen Delivery BiPAP Oxygen Flow Rate Fraction of Inspired Oxygen 01/09/25 02:50 01/09/25 04:00 01/09/25 04:00 Temperature 36.8 C Pulse Rate 88 89 110 H Respiratory Rate 28 H 24 H Blood Pressure 166/81 H Pulse Oximetry 93 Oxygen Delivery Oxygen Flow Rate Fraction of Inspired Oxygen 01/09/25 04:10 01/09/25 06:00 01/09/25 08:00 Temperature 36.2 C L Pulse Rate 90 102 H Respiratory Rate 28 H Blood Pressure 167/77 H Pulse Oximetry 95 100 Oxygen Delivery Nasal Cannula Oxygen Flow Rate 3 Fraction of Inspired Oxygen 01/09/25 08:00 01/09/25 08:00 01/09/25 08:11 Temperature Pulse Rate 97 108 H 97 Respiratory Rate 28 H Blood Pressure Pulse Oximetry 100 Oxygen Delivery Nasal Cannula Oxygen Flow Rate 2 Fraction of Inspired Oxygen 01/09/25 09:15 01/09/25 09:15 01/09/25 09:34 Temperature Pulse Rate 90 89 Respiratory Rate 20 20 Blood Pressure Pulse Oximetry 97 Oxygen Delivery Nasal Cannula Oxygen Flow Rate 2 Fraction of Inspired Oxygen 01/09/25 10:00 01/09/25 12:00 01/09/25 12:00 Temperature Pulse Rate 94 94 82 Respiratory Rate 20 Blood Pressure Pulse Oximetry 97 Oxygen Delivery Room Air Oxygen Flow Rate Fraction of Inspired Oxygen 01/09/25 12:00 01/09/25 12:55 Temperature 36.6 C Pulse Rate 78 Respiratory Rate 18 Blood Pressure 158/79 H Pulse Oximetry 98 Oxygen Delivery Room Air Oxygen Flow Rate Fraction of Inspired Oxygen Exam 2 Narrative: GENERAL APPEARANCE: Well developed, well nourished, alert and cooperative, and appears to be in no acute distress while on supplemental oxygen via nasal cannula SKIN: Inspection of the skin reveals no rashes, ulcerations or petechiae. HEENT: Sclerae anicteric and conjunctivae pink and moist. Extraocular movements were intact and pupils were equal, round, and reactive to light. The oral mucosa, hard and soft palate, tongue and posterior pharynx were normal. NECK: Supple. There was no thyroid enlargement, and no tenderness, or masses were felt. CHEST: Normal AP diameter and normal contour without any kyphoscoliosis. LUNGS: Distant breath sounds bilaterally no wheezing; ray crackles at bases CARDIAC: There was a regular rate and rhythm without any murmurs, gallops, rubs. ABDOMEN: Soft and nontender with normal bowel sounds. There was no organomegaly. LYMPH NODES: No lymphadenopathy was appreciated in the neck. EXTREMITIES: No cyanosis, clubbing or edema. NEUROLOGIC: Alert and oriented x 3. Normal affect. Results Laboratory Findings 01/09/25 03:52 01/09/25 03:52 ABG, PT/INR, D-dimer: ABG ABG pH 7.289 (7.350-7.450) L* 01/07/25 08:10 ABG pCO2 43.7 mmHg (35.0-45.0) 01/07/25 08:10 ABG pO2 204.0 mmHg (80.0-100.0) H 01/07/25 08:10 ABG O2 Saturation 99.3 % (95.0-100.0) 01/07/25 08:10 PT/INR, D-dimer PT 13.4 Seconds (11.1-14.7) 01/07/25 07:56 INR 1.0 01/07/25 07:56 Abnormal lab findings: Abnormal Labs 01/07/25 01/07/25 01/08/25 07:56 08:10 04:30 WBC 10.1 H RBC MPV 10.5 H Neut % (Auto) [place] % (Auto) 8.9 H Baso % (Auto) Lymph # (Auto) 3.47 H [place] # (Auto) 0.9 H Abs Immat Gran (auto) 0.05 H Absolute Neuts (auto) ABG pH 7.289 L* ABG pO2 204.0 H ABG HCO3 20.5 L Potassium BUN 21 H 20 H Creatinine 0.66 L Glucose 147 H 155 H 01/09/25 03:52 WBC 15.0 H RBC 4.09 L MPV Neut % (Auto) 77.6 H [place] % (Auto) Baso % (Auto) 0.1 L Lymph # (Auto) [place] # (Auto) Abs Immat Gran (auto) 0.08 H Absolute Neuts (auto) 11.6 H ABG pH ABG pO2 ABG HCO3 Potassium 5.3 H BUN 25 H Creatinine Glucose 150 H
--- NOTE | 2025-01-09 17:35 | PM.IMPN ---
Progress Note: A&P Assessment and Plan (1) Acute hypoxic respiratory failure: Code(s): J96.01 - Acute respiratory failure with hypoxia Status: Acute Assessment and Plan: - CXR: Bibasilar chronic interstitial disease and/or COPD change. - no significant leukocytosis, no anemia, viral PCR negative - EKG, initial showed SVT, rate 114, moderate ST depression, awaiting formal read. - initially 86% on room air despite nebulizer, now requiring BiPAP to maintain O2 saturation greater than 92%. Will continue and trial the patient off this evening. Suspect acute hypoxic respiratory failure secondary to COPD exacerbation, see below. (2) COPD exacerbation: Code(s): J44.1 - Chronic obstructive pulmonary disease with (acute) exacerbation Status: Acute Assessment and Plan: - Duonebs marcelino - start Solu-Medrol 60 mg Q 6, initial loading dose of 125 mg - start ceftriaxone and azithromycin, 01/07 - continue Trelegy daily - supportive care - current smoker, interested in Chantix. Has previously had side effects with nicotine patch and has previously been on Wellbutrin without success in [employer] cessation. (3) Benign essential hypertension: Code(s): I10 - Essential (primary) hypertension Status: Chronic Assessment and Plan: - chronic, currently 124/53 - continue home medications: Atenolol, telmisartan - monitor Plan Patient with long history of smoking and now present shortness of breath and acute respiratory failure with hypoxia most likely patient has exacerbation of COPD patient is being treated with methylprednisone and Duo neb, patient is also treated with ceftriaxone azithromycin to cover for atypical pneumonia, patient states feeling much better compared to when she arrived, patient is quite anxious and this makes her breathing worse patient is being treated with Ativan as needed and will monitor, patient cardiac echo is pending, patient will have a PT OT evaluate the patient patient will benefit going to rehab before discharging home Diet: Heart healthy GI Prophylaxis: Not currently indicated DVT Prophylaxis: SCDs Lines: Peripheral Code Status: Full code Subjective Date/time seen: 01/09/25 17:35 Interval history: Shortness of Breath H&P-Narrative: 79 y/o F presents here with shortness of breath with PMH of COPD, IBS, myocardial infarction, HTN, HLD, anxiety, depression, osteoporosis, tobacco use, and osteoporosis. The patient presents here from home via EMS for further evaluation of shortness of breath. She reports she began to feel short of breath night. Initially occurred with exertion and then became severe today where she felt she could not take a deep breath. The patient utilize her home inhalers and nebulizers without relief Denies fever, chills, body aches, congestion, runny nose, or chest pain. Patient reports she would have been evaluated last night if not for the severe weather but elected to call EMS today. Upon their arrival, the patient was 85% on room air. She does not require supplemental oxygen at baseline. She was given an albuterol nebulizer and a DuoNeb treatment. She arrived to the emergency department with labored breathing, tachypneic, tachycardic, and tripoding with an O2 sat of 87% on room air. Patient was subsequently placed on a nasal cannula and transition to BiPAP. The patient currently falls with pulmonology, last visit on 01/03/2025 with Rafael GORDON. Current regimen: Trelegy 100 1 puff daily and Albuterol p.r.n. at this visit she was prescribed doxycycline 100 mg daily x7 days due to worsening shortness of breath and increased sputum production. The patient was instructed to monitor symptoms with a week and start the doxycycline over the weekend if no improvement. The patient reports she had started this medication and has received a total of 4 doses. Patient is a current smoker - 5 cigarettes per day. Patient with long history of smoking and now present shortness of breath and acute respiratory failure with hypoxia most likely patient has exacerbation of COPD patient is being treated with methylprednisone and Duo neb, patient is also treated with ceftriaxone azithromycin to cover for atypical pneumonia, patient states feeling much better compared to when she arrived, patient is quite anxious and this makes her breathing worse patient is being treated with Ativan as needed and will monitor, patient cardiac echo is pending, patient will have a PT OT evaluate the patient patient will benefit going to rehab before discharging home Review of Systems Review of Systems: All systems reviewed & are unremarkable except as noted in HPI and below Objective Data Vital Signs Vital Signs: Vital Signs - 24 hr 01/08/25 18:00 01/08/25 20:00 01/08/25 20:00 Temperature 36.4 C L Pulse Rate 90 87 83 Respiratory Rate 20 Blood Pressure 145/70 H Pulse Oximetry 96 Oxygen Delivery Oxygen Flow Rate Fraction of Inspired Oxygen 01/08/25 20:06 01/08/25 20:06 01/08/25 20:15 Temperature Pulse Rate 87 87 92 Respiratory Rate 24 H 24 H 20 Blood Pressure Pulse Oximetry 96 Oxygen Delivery Nasal Cannula Oxygen Flow Rate 3 Fraction of Inspired Oxygen 32 01/08/25 20:50 01/08/25 21:00 01/08/25 22:00 Temperature Pulse Rate 106 H 88 Respiratory Rate Blood Pressure Pulse Oximetry 96 Oxygen Delivery Nasal Cannula Oxygen Flow Rate 3 Fraction of Inspired Oxygen 01/08/25 23:49 01/09/25 00:00 01/09/25 00:30 Temperature 36.4 C Pulse Rate 88 85 Respiratory Rate 18 Blood Pressure 126/60 Pulse Oximetry 98 94 Oxygen Delivery Nasal Cannula Oxygen Flow Rate 3 Fraction of Inspired Oxygen 01/09/25 00:55 01/09/25 00:55 01/09/25 02:00 Temperature Pulse Rate 90 87 Respiratory Rate 25 H Blood Pressure Pulse Oximetry 96 96 Oxygen Delivery BiPAP BiPAP Oxygen Flow Rate Fraction of Inspired Oxygen 21 01/09/25 02:38 01/09/25 02:38 01/09/25 02:50 Temperature Pulse Rate 87 87 88 Respiratory Rate 28 H 26 H 28 H Blood Pressure Pulse Oximetry 96 Oxygen Delivery BiPAP Oxygen Flow Rate Fraction of Inspired Oxygen 01/09/25 04:00 01/09/25 04:00 01/09/25 04:10 Temperature 36.8 C Pulse Rate 89 110 H Respiratory Rate 24 H Blood Pressure 166/81 H Pulse Oximetry 93 95 Oxygen Delivery Nasal Cannula Oxygen Flow Rate 3 Fraction of Inspired Oxygen 01/09/25 06:00 01/09/25 08:00 01/09/25 08:00 Temperature 36.2 C L Pulse Rate 90 102 H 97 Respiratory Rate 28 H 28 H Blood Pressure 167/77 H Pulse Oximetry 100 100 Oxygen Delivery Nasal Cannula Oxygen Flow Rate 2 Fraction of Inspired Oxygen 01/09/25 08:00 01/09/25 08:11 01/09/25 09:15 Temperature Pulse Rate 108 H 97 Respiratory Rate Blood Pressure Pulse Oximetry 97 Oxygen Delivery Nasal Cannula Oxygen Flow Rate 2 Fraction of Inspired Oxygen 01/09/25 09:15 01/09/25 09:34 01/09/25 10:00 Temperature Pulse Rate 90 89 94 Respiratory Rate 20 20 Blood Pressure Pulse Oximetry Oxygen Delivery Oxygen Flow Rate Fraction of Inspired Oxygen 01/09/25 12:00 01/09/25 12:00 01/09/25 12:00 Temperature 36.6 C Pulse Rate 94 82 78 Respiratory Rate 20 18 Blood Pressure 158/79 H Pulse Oximetry 97 98 Oxygen Delivery Room Air Oxygen Flow Rate Fraction of Inspired Oxygen 01/09/25 12:55 01/09/25 14:00 01/09/25 14:01 Temperature Pulse Rate 80 Respiratory Rate Blood Pressure Pulse Oximetry 94 Oxygen Delivery Room Air Room Air Oxygen Flow Rate Fraction of Inspired Oxygen 01/09/25 16:00 01/09/25 16:00 Temperature Pulse Rate 80 103 H Respiratory Rate 18 Blood Pressure Pulse Oximetry 94 Oxygen Delivery Room Air Oxygen Flow Rate Fraction of Inspired Oxygen Intake/Output Intake/Output: Intake & Output 01/06/25 01/07/25 01/08/25 01/09/25 23:59 23:59 23:59 23:59 Intake Total 500 1210 770 Output Total 100 550 Balance 400 660 770 Meds/Results Medications: Active Medications Generic Name Dose Route Start Last Admin Trade Name Freq PRN Reason Stop Dose Admin Acetaminophen 500 mg 01/07/25 14:24 Acetaminophen 500 Mg Tablet PO Q6H PRN Mild Pain (1-3) or Fever Albuterol/Ipratropium 3 ml 01/07/25 20:00 01/09/25 14:02 Ipratropium 0.5 Mg/Albuterol Sulfate 2.5 Mg Ampul.Neb 3 Ml INHALATION 3 ml Q6HRT MARCELINO Administration Alprazolam 1 mg 01/07/25 22:05 01/08/25 20:49 Alprazolam (*Crx) 0.5 Mg Tablet PO 1 mg HS MARCELINO Administration Alprazolam 0.25 mg 01/09/25 12:26 01/09/25 12:43 Alprazolam (*Crx) 0.25 Mg Tablet PO 0.25 mg QID PRN Administration Anxiety Aspirin 81 mg 01/08/25 09:00 01/09/25 08:11 Aspirin 81 Mg Enteric Tablet PO 81 mg DAILY MARCELINO Administration Atenolol 50 mg 01/07/25 21:20 01/09/25 08:11 Atenolol 50 Mg Tablet PO 50 mg Q12HR MARCELINO Administration Benzonatate 100 mg 01/07/25 14:24 01/08/25 20:50 Benzonatate 100 Mg Capsule PO 100 mg TID PRN Administration Cough Escitalopram Oxalate 20 mg 01/08/25 09:00 01/09/25 08:11 Escitalopram Oxalate 10 Mg Tablet PO 20 mg DAILY MARCELINO Administration Fluticasone/Umeclidinium/Vilanterol 1 puff 01/08/25 09:00 01/09/25 09:12 Fluticasone/Umeclidin/Vilanter 100-62.5-25 Mcg Ellipta INHALATION 1 puff DAILY MARCELINO Administration Guaifenesin 600 mg 01/07/25 21:00 01/09/25 08:11 Guaifenesin 12 Hr 600 Mg Tabcr PO 600 mg Q12HR MARCELINO Administration Ceftriaxone Sodium 1 gm in 50 mls @ 100 mls/hr 01/08/25 09:00 01/09/25 10:39 Rocephin 1 Gm/Ns 50 Ml IVPB Infused DAILY MARCELINO Infusion Azithromycin 500 mg in 250 mls @ 250 mls/hr 01/08/25 09:00 01/09/25 10:39 Zithromax IVPB Infused DAILY MARCELINO Infusion Methylprednisolone Sodium Succinate 60 mg 01/09/25 21:00 Methylprednisolone Sod Succ 125 Mg Vial IV PUSH Q12HR MARCELINO Perflutren Lipid Microsphere 0 ml 01/08/25 16:12 Perflutren Lipid Microspheres 1.5 Ml Vial Diluted To 10 Ml Total Volume IV PUSH 01/11/25 16:13 ONCE PRN adequate visualization Protocol Perflutren Lipid Microsphere 0 ml 01/08/25 16:13 Perflutren Lipid Microspheres 1.5 Ml Vial Diluted To 10 Ml Total Volume IV PUSH 01/11/25 16:13 ONCE PRN adequate visualization Protocol Raloxifene HCl 60 mg 01/08/25 09:00 01/09/25 08:11 Raloxifene Hcl (*Chemo) 60 Mg Tablet PO 60 mg DAILY MARCELINO Administration Simvastatin 40 mg 01/07/25 21:20 01/08/25 20:50 Simvastatin 20 Mg Tablet PO 40 mg HS MARCELINO Administration Telmisartan 20 mg 01/07/25 21:20 01/09/25 08:11 Telmisartan 20 Mg Tablet PO 20 mg Q12HR MARCELINO Administration Vitamin D 1,000 units 01/08/25 09:00 01/09/25 08:11 Cholecalciferol 1,000 Units Tablet PO 1,000 units DAILY MARCELINO Administration Radiology Results: ITS Impressions Chest X-Ray 01/07/25 08:05 Impression: Bibasilar chronic interstitial disease and/or COPD change. Venous Doppler Study 01/09/25 15:24 IMPRESSION: 1: No lower extremity deep venous thrombosis. Labs Labs: Laboratory Results - last 24 hr 01/09/25 03:52 WBC 15.0 H RBC 4.09 L Hgb 12.2 Hct 38.0 MCV 92.9 MCH 29.8 MCHC 32.1 RDW 14.0 Plt Count 190 MPV 10.0 Immature Gran % (Auto) 0.5 Neut % (Auto) 77.6 H Lymph % (Auto) 19.1 [place] % (Auto) 2.7 Eos % (Auto) 0.0 Baso % (Auto) 0.1 L Lymph # (Auto) 2.87 [place] # (Auto) 0.4 Eos # (Auto) 0.0 Baso # (Auto) 0.0 Abs Immat Gran (auto) 0.08 H Absolute Neuts (auto) 11.6 H Absolute Nucleated RBC 0.000 Nucleated RBC % 0.0 Sodium 141 Potassium 5.3 H Chloride 104 Carbon Dioxide 30 Anion Gap 7 BUN 25 H Creatinine 0.75 Estim Creat Clear Calc 43 Estimated GFR > 60 Glucose 150 H Calcium 9.2 Quality VTE Prophylaxis VTE prophylaxis: mechanical ordered
[2025-01-09] MEDS: ALPRAZolam (*CRX) 0.5 MG TABLET 1 MG PO (21:15)
[2025-01-09] MEDS: SIMVASTATIN 20 MG TABLET 40 MG PO (21:15)
[2025-01-10] VITALS (23 sets, daily range): BP systolic 140–165; BP diastolic 59–72; PULSE 62–103; RESP 18–28; TEMP 36.4–36.5; O2SAT 90–99
--- NOTE | 2025-01-10 | ECHO_ITS ---
Patient Info Name: Mary Butler Age: 79 years : 1945 Gender: Female Ht: 60 in Wt: 141 lbs BSA: 1.67 m2 HR: 83 bpm BP: 154 / 62 mmHg Technical Quality: Fair Exam Date: 01/10/2025 10:20 AM Exam Location: Echo Lab Patient Status: Inpatient Admit Date: 01/08/2025 Staff Ordering Physician: Zachary Alonzo MD Social Secretary: Lynette Barbour RDCS Attending Provider: Zachary Alonzo MD Exam Type: CA echo doppler color flow Study Info Indications R06.02 - Shortness of breath Complete two-dimensional, color flow and Doppler transthoracic echocardiogram is performed. Summary 1. Left ventricular chamber dimension is normal. 2. Left ventricular systolic function is normal, estimated at 65-70%. 3. There is mildly increased left ventricular wall thickness. 4. Right ventricular systolic function is normal. 5. Left atrial chamber dimension is severely enlarged. 6. There is mild mitral valve regurgitation. 7. There is mild tricuspid valve regurgitation. 8. There is small anterior pericardial effusion. Left Ventricle Left ventricular chamber dimension is normal. Left ventricular systolic function is normal, estimated at 65-70%. There is mildly increased left ventricular wall thickness. The left ventricular diastolic function is abnormal. Right Ventricle Right ventricular chamber dimension is normal. Right ventricular systolic function is normal. Left Atria Left atrial chamber dimension is severely enlarged. Right Atria Right atrial chamber dimension is normal. Atrial Septum Intact interatrial septum visualized by color flow imaging. Aortic Valve The aortic valve is not well visualized. There is no aortic valve stenosis. There is no aortic valve regurgitation. Pulmonic Valve The pulmonic valve is not well visualized. Mitral Valve There is mild mitral valve regurgitation. Tricuspid Valve There is mild tricuspid valve regurgitation. Pericardium/Pleural There is small anterior pericardial effusion. Inferior Vena Cava Normal inferior vena cava with >50% collapse upon inspiration consistent with normal right atrial pressure, 3 mmHg. Aorta The aortic root size at the sinus of Valsalva is normal. Left Ventricular Outflow Tract Name Value Normal LVOT 2D LVOT Diameter 1.9 cm LVOT Doppler LVOT Peak Gradient 4 mmHg LVOT Mean Gradient 2 mmHg LVOT VTI 21 cm LVOT VTI/AV VTI Ratio 0.9 LVOT Stroke Volume 56 ml LVOT CO 4.7 l/min LVOT CI 2.8 l/min/m2 Pulmonic Valve Name Value Normal RVOT Doppler RVOT Peak Gradient 1 mmHg PV Doppler PV Peak Gradient 3 mmHg Mitral Valve Name Value Normal MV Doppler MV Decel [place] 934 cm/s2 MV PHT 37 ms MV Area (PHT) 5.9 cm2 4.0-5.0 MV Diastolic Function MV E Peak Velocity 119 cm/s MV A Peak Velocity 54 cm/s MV E/A 2.2 MV Decel Time 128 ms MV Annular TDI MV E/e' (Septal) 22.5 <=8.0 MV E/e' (Lateral) 15.2 <=8.0 MV E/e' (Average) 18.8 Tricuspid Valve Name Value Normal TV Regurgitation Doppler TR Peak Velocity 354 cm/s TR Peak Gradient 50 mmHg Estimated PAP/RSVP RA Pressure 3 mmHg <=5 PA Systolic Pressure 53 mmHg <36 RV Systolic Pressure 53 mmHg <36 Aortic Valve Name Value Normal AV Doppler AV Peak Velocity 117 cm/s AV Peak Gradient 5 mmHg AV Mean Gradient 2 mmHg AV VTI 23 cm AV Area (Cont Eq VTI) 2.5 cm2 >=3.0 AV Area (Cont Eq Daniel) 2.2 cm2 AV Regurgitation 2D LVOT Area 2.7 cm2 Ventricles Name Value Normal LV Dimensions 2D/MM IVS Diastolic Thickness (2D) 1.2 cm 0.6-1.0 LVID Diastole (2D) 3.8 cm 3.8-5.2 LVIW Diastolic Thickness (2D) 0.8 cm 0.6-0.9 LVID Systole (2D) 2.5 cm 2.2-3.5 LVOT Diameter 1.9 cm LV Mass (2D Cubed) 115.60 g 67.00-162.00 LV Mass Index (2D Cubed) 69 g/m2 43-95 Relative Wall Thickness (2D) 0.42 LV Fractional Shortening/Ejection Fraction 2D/MM LV Fractional Shortening (2D) 34 % 27-45 LV EF (2D Teicholz) 64 % 54-74 LV Diastolic Volume (4C MOD) 58 ml LV EF (4C MOD) 62 % LV Diastolic Volume (2C MOD) 74 ml LV EF (2C MOD) 66 % LV Diastolic Volume (BP MOD) 68 ml 46-106 LV Diastolic Volume Index (BP MOD) 41 ml/m2 29-61 LV Systolic Volume (BP MOD) 27 ml 14-42 LV Systolic Volume Index (BP MOD) 16 ml/m2 8-24 LV EF (BP MOD) 61 % 54-74 LV Diastolic Length (4C) 6.8 cm LV Systolic Length (4C) 5.1 cm LV Stroke Volume (4C MOD) 36 ml Atria Name Value Normal RA Dimensions RA Area (4C) 15.3 cm2 <=18.0 Report Signatures
[2025-01-10] MEDS: IPRATROPIUM 0.5 MG/ALBUTEROL SULFATE 2.5 MG AMPUL.NEB 3 ML INHALATION ×4 (01:22→21:25)
[2025-01-10 04:38] LABS: Basophils Percent Auto 0.1 % (0.2-1.2); Hemoglobin 12.5 g/dL (12.0-15.0); Immature Granulocyte Absolute 0.08 K/mm3 (0.00-0.031); Immature Granulocyte Percent A 0.6 % (0-0.5); Lymphocytes Absolute Auto 2.35 K/mm3 (0.9-3.2); Lymphocytes Percent Auto 17.2 % (18.3-44.2); Mean Corpuscular HGB Conc 32.1 g/dl (32-36); Mean Corpuscular Hemoglobin 29.3 pg (26-34); Mean Corpuscular Volume 91.5 fl (80-100); Mean Platelet Volume 10.2 fl (7.4-10.4); Monocytes Absolute Auto 0.3 K/mm3 (0.1-0.6); Monocytes Percent Auto 2.1 % (2.6-8.5); Neutrophils Absolute Auto 10.9 K/mm3 (1.3-6.7); Platelet Count Result 208 k/mm3 (150-375); Red Blood Count 4.26 M/mm3 (4.2-5.4); Red Cell Distribution Width 13.9 % (11.5-14.5); White Blood Count 13.7 K/mm3 (4.5-10.0)
[2025-01-10 04:50] LABS: Anion Gap 11 mmol/L (4-12); Blood Urea Nitrogen 23 mg/dL (7-17); Calcium 8.9 mg/dL (8.4-10.2); Carbon Dioxide 27 mmol/L (22-30); Chloride 101 mmol/L (98-107); Estimated CRCL calculation 45 ml/min; Estimated Glomerular Filt Rate > 60; Glucose 135 mg/dL (65-110); Potassium 3.8 mmol/L (3.4-5.0); Sodium 139 mmol/L (137-145)
[2025-01-10] MEDS: guaiFENesin 12 HR 600 MG TABCR PO ×2 (08:34→20:53)
[2025-01-10] MEDS: TELMISARTAN 20 MG TABLET PO ×2 (08:34→20:52)
[2025-01-10] MEDS: atenoloL 50 MG TABLET PO ×2 (08:34→20:54)
[2025-01-10] MEDS: ESCITALOPRAM OXALATE 10 MG TABLET 20 MG PO (08:35)
[2025-01-10] MEDS: CHOLECALCIFEROL 1,000 UNITS TABLET 1000 UNITS PO (08:35)
[2025-01-10] MEDS: RALOXIFENE HCL (*CHEMO) 60 MG TABLET PO (08:35)
[2025-01-10] MEDS: ASPIRIN 81 MG ENTERIC TABLET PO (08:35)
[2025-01-10] MEDS: methylPREDNISolone SOD SUCC 125 MG VIAL 60 MG IV PUSH ×2 (08:37→20:54)
[2025-01-10] MEDS: AZITHROMYCIN 500 MG/NS 250 ML 500 MG/250 ML BAG 250 MG IVPB (08:38)
[2025-01-10] MEDS: FLUTICASONE/UMECLIDIN/VILANTER 100-62.5-25 MCG ELLIPTA 1 PUFF INHALATION (09:16)
--- NOTE | 2025-01-10 09:27 | PM.PNPUL ---
Progress Note: A&P Assessment and Plan (1) Emphysema of lung: Qualifiers: Emphysema type: unspecified Qualified Code(s): J43.9 - Emphysema, unspecified Code(s): J43.9 - Emphysema, unspecified Status: Acute (2) COPD exacerbation: Code(s): J44.1 - Chronic obstructive pulmonary disease with (acute) exacerbation Status: Acute Assessment and Plan: This patient, with a known history of moderate obstructive airway disease and previous exacerbations, on maintenance bronchodilators, presented with severe shortness of breath. She experienced acute metabolic acidosis, likely due to elevated lactic acid levels, and severe hypoxemia without hypercapnia, all of which are related to another COPD exacerbation triggered by an upper respiratory infection. The patient has responded well to treatment, which includes BiPAP support, short-acting bronchodilators, IV steroids, and antibiotics. She developed shortness of breath when got out of bed to use the bathroom this a.m.. Physical exam she again had a distant breath sounds with no significant wheezing. Lower extremity study no DVT. Plan: Continue with current dose of IV steroids, switch patient to oral Augmentin, nebulized short-acting bronchodilators as prescribed, start DVT prophylaxis. (3) Cigarette smoker: Code(s): F17.210 - Nicotine dependence, cigarettes, uncomplicated Status: Acute (4) Acute hypoxic respiratory failure: Code(s): J96.01 - Acute respiratory failure with hypoxia Status: Acute Subjective Date/time seen: 01/10/25 09:27 Interval history: Patient experience shortness of breath earlier today when got out of bed to use the bathroom. She was placed back on oxygen. She has no other respiratory symptoms such as fever chills. Review of Systems Review of Systems: All systems reviewed & are unremarkable except as noted in HPI and below (HPI and below) Exam Narrative: GENERAL APPEARANCE: Well developed, well nourished, alert and cooperative, and appears to be in no acute distress while on supplemental oxygen via nasal cannula SKIN: Inspection of the skin reveals no rashes, ulcerations or petechiae. HEENT: Sclerae anicteric and conjunctivae pink and moist. Extraocular movements were intact and pupils were equal, round, and reactive to light. The oral mucosa, hard and soft palate, tongue and posterior pharynx were normal. NECK: Supple. There was no thyroid enlargement, and no tenderness, or masses were felt. CHEST: Normal AP diameter and normal contour without any kyphoscoliosis. LUNGS: Distant breath sounds bilaterally no wheezing; ray crackles at bases CARDIAC: There was a regular rate and rhythm without any murmurs, gallops, rubs. ABDOMEN: Soft and nontender with normal bowel sounds. There was no organomegaly. LYMPH NODES: No lymphadenopathy was appreciated in the neck. EXTREMITIES: No cyanosis, clubbing or edema. NEUROLOGIC: Alert and oriented x 3. Normal affect. Objective Data Vital Signs Vital Signs: Vital Signs - 24 hr 01/09/25 09:34 01/09/25 10:00 01/09/25 12:00 Temperature Pulse Rate 89 94 94 Respiratory Rate 20 20 Blood Pressure Pulse Oximetry 97 Oxygen Delivery Room Air Oxygen Flow Rate Fraction of Inspired Oxygen 01/09/25 12:00 01/09/25 12:00 01/09/25 12:55 Temperature 36.6 C Pulse Rate 82 78 Respiratory Rate 18 Blood Pressure 158/79 H Pulse Oximetry 98 Oxygen Delivery Room Air Oxygen Flow Rate Fraction of Inspired Oxygen 01/09/25 14:00 01/09/25 14:01 01/09/25 14:02 Temperature Pulse Rate 80 91 Respiratory Rate 20 Blood Pressure Pulse Oximetry 94 Oxygen Delivery Room Air Oxygen Flow Rate Fraction of Inspired Oxygen 01/09/25 16:00 01/09/25 16:00 01/09/25 16:00 Temperature 36.5 C Pulse Rate 80 103 H 95 Respiratory Rate 18 22 H Blood Pressure 126/53 L Pulse Oximetry 94 95 Oxygen Delivery Room Air Oxygen Flow Rate Fraction of Inspired Oxygen 01/09/25 18:00 01/09/25 19:49 01/09/25 19:49 Temperature Pulse Rate 88 78 Respiratory Rate 20 Blood Pressure Pulse Oximetry 96 Oxygen Delivery Nasal Cannula Oxygen Flow Rate 1 Fraction of Inspired Oxygen 24 01/09/25 20:00 01/09/25 20:00 01/09/25 20:02 Temperature 37.0 C Pulse Rate 92 88 75 Respiratory Rate 22 H Blood Pressure 135/70 Pulse Oximetry 95 97 Oxygen Delivery Nasal Cannula Oxygen Flow Rate 1 Fraction of Inspired Oxygen 01/09/25 20:02 01/09/25 21:16 01/09/25 22:00 Temperature Pulse Rate 83 92 85 Respiratory Rate 20 Blood Pressure Pulse Oximetry Oxygen Delivery Oxygen Flow Rate Fraction of Inspired Oxygen 01/09/25 22:51 01/09/25 23:15 01/10/25 00:00 Temperature 36.4 C Pulse Rate 89 85 81 Respiratory Rate 25 H 25 H Blood Pressure 128/54 L Pulse Oximetry 94 93 Oxygen Delivery BiPAP Oxygen Flow Rate Fraction of Inspired Oxygen 01/10/25 00:00 01/10/25 01:22 01/10/25 01:22 Temperature Pulse Rate 73 79 79 Respiratory Rate 22 H 22 H Blood Pressure Pulse Oximetry 95 93 Oxygen Delivery BiPAP BiPAP Oxygen Flow Rate Fraction of Inspired Oxygen 21 01/10/25 01:31 01/10/25 02:00 01/10/25 03:28 Temperature 36.5 C Pulse Rate 78 74 79 Respiratory Rate 20 28 H Blood Pressure 154/62 H Pulse Oximetry 96 Oxygen Delivery Oxygen Flow Rate Fraction of Inspired Oxygen 01/10/25 04:00 01/10/25 04:00 01/10/25 06:00 Temperature Pulse Rate 70 78 95 Respiratory Rate Blood Pressure Pulse Oximetry 95 Oxygen Delivery BiPAP Oxygen Flow Rate Fraction of Inspired Oxygen 01/10/25 08:04 01/10/25 08:34 01/10/25 09:17 Temperature 36.5 C Pulse Rate 103 H 80 80 Respiratory Rate 22 H 20 Blood Pressure 163/70 H Pulse Oximetry 99 95 Oxygen Delivery Nasal Cannula Oxygen Flow Rate 1 Fraction of Inspired Oxygen 01/10/25 09:17 Temperature Pulse Rate 80 Respiratory Rate 20 Blood Pressure Pulse Oximetry Oxygen Delivery Oxygen Flow Rate Fraction of Inspired Oxygen Intake/Output Intake/Output: Intake & Output 01/07/25 01/08/25 01/09/25 01/10/25 23:59 23:59 23:59 23:59 Intake Total 500 1210 1565 640 Output Total 985 687 7705 Balance 400 660 365 640 Meds/Results Medications: Active Medications Generic Name Dose Route Start Last Admin Trade Name Freq PRN Reason Stop Dose Admin Acetaminophen 500 mg 01/07/25 14:24 Acetaminophen 500 Mg Tablet PO Q6H PRN Mild Pain (1-3) or Fever Albuterol/Ipratropium 3 ml 01/07/25 20:00 01/10/25 09:16 Ipratropium 0.5 Mg/Albuterol Sulfate 2.5 Mg Ampul.Neb 3 Ml INHALATION 3 ml Q6HRT MARCELINO Administration Alprazolam 1 mg 01/07/25 22:05 01/09/25 21:15 Alprazolam (*Crx) 0.5 Mg Tablet PO 1 mg HS MARCELINO Administration Alprazolam 0.25 mg 01/09/25 12:26 01/09/25 12:43 Alprazolam (*Crx) 0.25 Mg Tablet PO 0.25 mg QID PRN Administration Anxiety Amoxicillin/Clavulanate Potassium 1 tablet 01/11/25 09:00 Amoxicillin/Clavulanate K 875-125 Mg Tab PO 01/13/25 21:01 Q12HR MARCELINO Aspirin 81 mg 01/08/25 09:00 01/10/25 08:35 Aspirin 81 Mg Enteric Tablet PO 81 mg DAILY MARCELINO Administration Atenolol 50 mg 01/07/25 21:20 01/10/25 08:34 Atenolol 50 Mg Tablet PO 50 mg Q12HR MARCELINO Administration Benzonatate 100 mg 01/07/25 14:24 01/08/25 20:50 Benzonatate 100 Mg Capsule PO 100 mg TID PRN Administration Cough Escitalopram Oxalate 20 mg 01/08/25 09:00 01/10/25 08:35 Escitalopram Oxalate 10 Mg Tablet PO 20 mg DAILY MARCELINO Administration Fluticasone/Umeclidinium/Vilanterol 1 puff 01/08/25 09:00 01/10/25 09:16 Fluticasone/Umeclidin/Vilanter 100-62.5-25 Mcg Ellipta INHALATION 1 puff DAILY MARCELINO Administration Guaifenesin 600 mg 01/07/25 21:00 01/10/25 08:34 Guaifenesin 12 Hr 600 Mg Tabcr PO 600 mg Q12HR MARCELINO Administration Methylprednisolone Sodium Succinate 60 mg 01/09/25 21:00 01/10/25 08:37 Methylprednisolone Sod Succ 125 Mg Vial IV PUSH 60 mg Q12HR MARCELINO Administration Perflutren Lipid Microsphere 0 ml 01/08/25 16:12 Perflutren Lipid Microspheres 1.5 Ml Vial Diluted To 10 Ml Total Volume IV PUSH 01/11/25 16:13 ONCE PRN adequate visualization Protocol Perflutren Lipid Microsphere 0 ml 01/08/25 16:13 Perflutren Lipid Microspheres 1.5 Ml Vial Diluted To 10 Ml Total Volume IV PUSH 01/11/25 16:13 ONCE PRN adequate visualization Protocol Raloxifene HCl 60 mg 01/08/25 09:00 01/10/25 08:35 Raloxifene Hcl (*Chemo) 60 Mg Tablet PO 60 mg DAILY MARCELINO Administration Simvastatin 40 mg 01/07/25 21:20 01/09/25 21:15 Simvastatin 20 Mg Tablet PO 40 mg HS MARCELINO Administration Telmisartan 20 mg 01/07/25 21:20 01/10/25 08:34 Telmisartan 20 Mg Tablet PO 20 mg Q12HR MARCELINO Administration Vitamin D 1,000 units 01/08/25 09:00 01/10/25 08:35 Cholecalciferol 1,000 Units Tablet PO 1,000 units DAILY MARCELINO Administration Radiology Results: ITS Impressions Chest X-Ray 01/07/25 08:05 Impression: Bibasilar chronic interstitial disease and/or COPD change. Venous Doppler Study 01/09/25 15:24 IMPRESSION: 1: No lower extremity deep venous thrombosis. Labs Labs: Laboratory Results - last 24 hr 01/10/25 04:08 WBC 13.7 H RBC 4.26 Hgb 12.5 Hct 39.0 MCV 91.5 MCH 29.3 MCHC 32.1 RDW 13.9 Plt Count 208 MPV 10.2 Immature Gran % (Auto) 0.6 H Neut % (Auto) 80.0 H Lymph % (Auto) 17.2 L Atkinson % (Auto) 2.1 L Eos % (Auto) 0.0 Baso % (Auto) 0.1 L Lymph # (Auto) 2.35 Atkinson # (Auto) 0.3 Eos # (Auto) 0.0 Baso # (Auto) 0.0 Abs Immat Gran (auto) 0.08 H Absolute Neuts (auto) 10.9 H Absolute Nucleated RBC 0.000 Nucleated RBC % 0.0 Sodium 139 Potassium 3.8 Chloride 101 Carbon Dioxide 27 Anion Gap 11 BUN 23 H Creatinine 0.71 Estim Creat Clear Calc 45 Estimated GFR > 60 Glucose 135 H Calcium 8.9
[2025-01-10] MEDS: ALPRAZolam (*CRX) 0.5 MG TABLET 1 MG PO (20:52)
[2025-01-10] MEDS: SIMVASTATIN 20 MG TABLET 40 MG PO (20:53)
[2025-01-11] VITALS (11 sets, daily range): BP systolic 137–157; BP diastolic 66–79; PULSE 72–86; RESP 18–23; TEMP 35.8–36.9; O2SAT 91–94
[2025-01-11] MEDS: IPRATROPIUM 0.5 MG/ALBUTEROL SULFATE 2.5 MG AMPUL.NEB 3 ML INHALATION ×3 (02:30→21:08)
[2025-01-11 04:35] LABS: Basophils Percent Auto 0.2 % (0.2-1.2); Hemoglobin 12.2 g/dL (12.0-15.0); Immature Granulocyte Absolute 0.09 K/mm3 (0.00-0.031); Immature Granulocyte Percent A 0.9 % (0-0.5); Lymphocytes Absolute Auto 1.92 K/mm3 (0.9-3.2); Lymphocytes Percent Auto 18.7 % (18.3-44.2); Mean Corpuscular Hemoglobin 30.5 pg (26-34); Mean Corpuscular Volume 92.5 fl (80-100); Mean Platelet Volume 10.1 fl (7.4-10.4); Monocytes Absolute Auto 0.4 K/mm3 (0.1-0.6); Monocytes Percent Auto 3.5 % (2.6-8.5); Neutrophils Absolute Auto 7.9 K/mm3 (1.3-6.7); Neutrophils Percent Auto 76.7 % (45.5-73.1); Platelet Count Result 194 k/mm3 (150-375); Red Cell Distribution Width 13.7 % (11.5-14.5); White Blood Count 10.3 K/mm3 (4.5-10.0)
[2025-01-11 04:46] LABS: Anion Gap 11 mmol/L (4-12); Blood Urea Nitrogen 25 mg/dL (7-17); Calcium 8.6 mg/dL (8.4-10.2); Carbon Dioxide 25 mmol/L (22-30); Chloride 101 mmol/L (98-107); Estimated CRCL calculation 42 ml/min; Estimated Glomerular Filt Rate > 60; Glucose 137 mg/dL (65-110); Potassium 3.6 mmol/L (3.4-5.0); Sodium 137 mmol/L (137-145)
--- NOTE | 2025-01-11 06:04 | PC.NURSE ---
This patient, Mary Butler, was transferred to [3rd med-surg ] on 01/11/25 at 0545. Personal belongings sent with patient. Report given to [ZABRINA Sarmiento ]. Appropriate documentation sent with patient.
--- NOTE | 2025-01-11 08:58 | PM.PNPUL ---
Progress Note: A&P Assessment and Plan (1) Emphysema of lung: Qualifiers: Emphysema type: unspecified Qualified Code(s): J43.9 - Emphysema, unspecified Code(s): J43.9 - Emphysema, unspecified Status: Acute (2) COPD exacerbation: Code(s): J44.1 - Chronic obstructive pulmonary disease with (acute) exacerbation Status: Acute Assessment and Plan: This patient, with a known history of moderate obstructive airway disease and previous exacerbations, on maintenance bronchodilators, presented with severe shortness of breath. She experienced acute metabolic acidosis, likely due to elevated lactic acid levels, and severe hypoxemia without hypercapnia, all of which are related to another COPD exacerbation triggered by an upper respiratory infection. The patient has responded well to treatment, which includes BiPAP support, short-acting bronchodilators, IV steroids, and antibiotics. Over the past 24 hours, her respiratory condition has remained stable and has likely shown slight improvement. She uses BiPAP support at night, which alleviates her anxiety, and she did not exhibit hypercapnia upon admission. Plan: Continue with the current regimen and encourage getting out of bed to sit in a chair. Plan to switch to oral steroids, likely in the morning. Anticipate discharge to home within the next 48 hours. (3) Cigarette smoker: Code(s): F17.210 - Nicotine dependence, cigarettes, uncomplicated Status: Acute (4) Acute hypoxic respiratory failure: Code(s): J96.01 - Acute respiratory failure with hypoxia Status: Acute Subjective Date/time seen: 01/11/25 08:58 Interval history: Patient doing better this a.m. she did have she significant shortness of breath when got out of bed and ambulated in the room. She used BiPAP support last night. Remains on room air Review of Systems Review of Systems: All systems reviewed & are unremarkable except as noted in HPI and below (HPI and below) Exam Narrative: GENERAL APPEARANCE: Well developed, well nourished, alert and cooperative, and appears to be in no acute distress while on supplemental oxygen via nasal cannula SKIN: Inspection of the skin reveals no rashes, ulcerations or petechiae. HEENT: Sclerae anicteric and conjunctivae pink and moist. Extraocular movements were intact and pupils were equal, round, and reactive to light. The oral mucosa, hard and soft palate, tongue and posterior pharynx were normal. NECK: Supple. There was no thyroid enlargement, and no tenderness, or masses were felt. CHEST: Normal AP diameter and normal contour without any kyphoscoliosis. LUNGS: Distant breath sounds bilaterally. Minimal expiratory wheezing mostly localized CARDIAC: There was a regular rate and rhythm without any murmurs, gallops, rubs. ABDOMEN: Soft and nontender with normal bowel sounds. There was no organomegaly. LYMPH NODES: No lymphadenopathy was appreciated in the neck. EXTREMITIES: No cyanosis, clubbing or edema. NEUROLOGIC: Alert and oriented x 3. Normal affect. Objective Data Vital Signs Vital Signs: Vital Signs - 24 hr 01/10/25 09:17 01/10/25 09:17 01/10/25 09:30 Temperature Pulse Rate 80 80 77 Respiratory Rate 20 20 20 Blood Pressure Pulse Oximetry 95 Oxygen Delivery Nasal Cannula Oxygen Flow Rate 1 01/10/25 10:00 01/10/25 11:40 01/10/25 11:51 Temperature 36.4 C L Pulse Rate 75 85 Respiratory Rate 22 H Blood Pressure 165/72 H Pulse Oximetry 94 Oxygen Delivery Nasal Cannula Oxygen Flow Rate 1 01/10/25 15:06 01/10/25 15:09 01/10/25 15:22 Temperature Pulse Rate 66 66 62 Respiratory Rate 20 20 20 Blood Pressure Pulse Oximetry 95 Oxygen Delivery Room Air Oxygen Flow Rate 01/10/25 15:52 01/10/25 19:58 01/10/25 20:00 Temperature 36.5 C 36.4 C Pulse Rate 75 90 Respiratory Rate 20 22 H Blood Pressure 148/59 H 140/67 Pulse Oximetry 90 90 Oxygen Delivery Room Air Oxygen Flow Rate 01/10/25 21:26 01/10/25 21:30 01/10/25 21:35 Temperature Pulse Rate 80 80 75 Respiratory Rate 20 20 Blood Pressure Pulse Oximetry 91 Oxygen Delivery Room Air Oxygen Flow Rate 01/10/25 23:30 01/11/25 02:30 01/11/25 02:30 Temperature Pulse Rate 92 82 82 Respiratory Rate 23 H 20 23 H Blood Pressure Pulse Oximetry 94 92 Oxygen Delivery BiPAP Oxygen Flow Rate 01/11/25 02:50 Temperature Pulse Rate 79 Respiratory Rate 21 H Blood Pressure Pulse Oximetry Oxygen Delivery Oxygen Flow Rate Intake/Output Intake/Output: Intake & Output 01/08/25 01/09/25 01/10/25 01/11/25 23:59 23:59 23:59 23:59 Intake Total 1210 1565 1620 360 Output Total 550 1200 Balance 797 232 7803 360 Meds/Results Medications: Active Medications Generic Name Dose Route Start Last Admin Trade Name Freq PRN Reason Stop Dose Admin Acetaminophen 500 mg 01/07/25 14:24 Acetaminophen 500 Mg Tablet PO Q6H PRN Mild Pain (1-3) or Fever Albuterol/Ipratropium 3 ml 01/07/25 20:00 01/11/25 02:30 Ipratropium 0.5 Mg/Albuterol Sulfate 2.5 Mg Ampul.Neb 3 Ml INHALATION 3 ml Q6HRT MARCELINO Administration Alprazolam 1 mg 01/07/25 22:05 01/10/25 20:52 Alprazolam (*Crx) 0.5 Mg Tablet PO 1 mg HS MARCELINO Administration Alprazolam 0.25 mg 01/09/25 12:26 01/09/25 12:43 Alprazolam (*Crx) 0.25 Mg Tablet PO 0.25 mg QID PRN Administration Anxiety Amoxicillin/Clavulanate Potassium 1 tablet 01/11/25 09:00 Amoxicillin/Clavulanate K 875-125 Mg Tab PO 01/13/25 21:01 Q12HR MARCELINO Aspirin 81 mg 01/08/25 09:00 01/10/25 08:35 Aspirin 81 Mg Enteric Tablet PO 81 mg DAILY MARCELINO Administration Atenolol 50 mg 01/07/25 21:20 01/10/25 20:54 Atenolol 50 Mg Tablet PO 50 mg Q12HR MARCELINO Administration Benzonatate 100 mg 01/07/25 14:24 01/08/25 20:50 Benzonatate 100 Mg Capsule PO 100 mg TID PRN Administration Cough Enoxaparin Sodium 40 mg 01/10/25 09:00 01/10/25 12:35 Enoxaparin 40 Mg/0.4 Ml Syringe SUB-Q Not Given DAILY [facility] Escitalopram Oxalate 20 mg 01/08/25 09:00 01/10/25 08:35 Escitalopram Oxalate 10 Mg Tablet PO 20 mg DAILY MARCELINO Administration Fluticasone/Umeclidinium/Vilanterol 1 puff 01/08/25 09:00 01/10/25 09:16 Fluticasone/Umeclidin/Vilanter 100-62.5-25 Mcg Ellipta INHALATION 1 puff DAILY MARCELINO Administration Guaifenesin 600 mg 01/07/25 21:00 01/10/25 20:53 Guaifenesin 12 Hr 600 Mg Tabcr PO 600 mg Q12HR MARCELINO Administration Methylprednisolone Sodium Succinate 60 mg 01/09/25 21:00 01/10/25 20:54 Methylprednisolone Sod Succ 125 Mg Vial IV PUSH 60 mg Q12HR MARCELINO Administration Perflutren Lipid Microsphere 0 ml 01/08/25 16:12 Perflutren Lipid Microspheres 1.5 Ml Vial Diluted To 10 Ml Total Volume IV PUSH 01/11/25 16:13 ONCE PRN adequate visualization Protocol Perflutren Lipid Microsphere 0 ml 01/08/25 16:13 Perflutren Lipid Microspheres 1.5 Ml Vial Diluted To 10 Ml Total Volume IV PUSH 01/11/25 16:13 ONCE PRN adequate visualization Protocol Raloxifene HCl 60 mg 01/08/25 09:00 01/10/25 08:35 Raloxifene Hcl (*Chemo) 60 Mg Tablet PO 60 mg DAILY MARCELINO Administration Simvastatin 40 mg 01/07/25 21:20 01/10/25 20:53 Simvastatin 20 Mg Tablet PO 40 mg HS MARCELINO Administration Telmisartan 20 mg 01/07/25 21:20 01/10/25 20:52 Telmisartan 20 Mg Tablet PO 20 mg Q12HR MARCELINO Administration Vitamin D 1,000 units 01/08/25 09:00 01/10/25 08:35 Cholecalciferol 1,000 Units Tablet PO 1,000 units DAILY MARCELINO Administration Radiology Results: ITS Impressions Chest X-Ray 01/07/25 08:05 Impression: Bibasilar chronic interstitial disease and/or COPD change. Venous Doppler Study 01/09/25 15:24 IMPRESSION: 1: No lower extremity deep venous thrombosis. Labs Labs: Laboratory Results - last 24 hr 01/11/25 04:01 WBC 10.3 H RBC 4.00 L Hgb 12.2 Hct 37.0 MCV 92.5 MCH 30.5 MCHC 33.0 RDW 13.7 Plt Count 194 MPV 10.1 Immature Gran % (Auto) 0.9 H Neut % (Auto) 76.7 H Lymph % (Auto) 18.7 Rhea % (Auto) 3.5 Eos % (Auto) 0.0 Baso % (Auto) 0.2 Lymph # (Auto) 1.92 Rhea # (Auto) 0.4 Eos # (Auto) 0.0 Baso # (Auto) 0.0 Abs Immat Gran (auto) 0.09 H Absolute Neuts (auto) 7.9 H Absolute Nucleated RBC 0.000 Nucleated RBC % 0.0 Sodium 137 Potassium 3.6 Chloride 101 Carbon Dioxide 25 Anion Gap 11 BUN 25 H Creatinine 0.76 Estim Creat Clear Calc 42 Estimated GFR > 60 Glucose 137 H Calcium 8.6
[2025-01-11] MEDS: ACETAMINOPHEN 500 MG TABLET PO (09:11)
[2025-01-11] MEDS: atenoloL 50 MG TABLET PO ×2 (09:11→21:54)
[2025-01-11] MEDS: ENOXAPARIN 40 MG/0.4 ML SYRINGE SUB-Q (09:13)
[2025-01-11] MEDS: guaiFENesin 12 HR 600 MG TABCR PO ×2 (09:13→21:54)
[2025-01-11] MEDS: CHOLECALCIFEROL 1,000 UNITS TABLET 1000 UNITS PO (09:13)
[2025-01-11] MEDS: ESCITALOPRAM OXALATE 10 MG TABLET 20 MG PO (09:13)
[2025-01-11] MEDS: ASPIRIN 81 MG ENTERIC TABLET PO (09:13)
[2025-01-11] MEDS: AMOXICILLIN/CLAVULANATE K 875-125 MG TAB 1 TABLET PO ×2 (09:13→21:54)
[2025-01-11] MEDS: methylPREDNISolone SOD SUCC 125 MG VIAL 60 MG IV PUSH ×2 (09:14→21:56)
[2025-01-11] MEDS: FLUTICASONE/UMECLIDIN/VILANTER 100-62.5-25 MCG ELLIPTA 1 PUFF INHALATION (09:33)
[2025-01-11] MEDS: RALOXIFENE HCL (*CHEMO) 60 MG TABLET PO (09:57)
[2025-01-11] MEDS: TELMISARTAN 20 MG TABLET PO ×2 (09:57→21:55)
--- NOTE | 2025-01-11 15:27 | PM.IMPN ---
Progress Note: A&P Assessment and Plan (1) Acute hypoxic respiratory failure: Code(s): J96.01 - Acute respiratory failure with hypoxia Status: Acute Assessment and Plan: - CXR: Bibasilar chronic interstitial disease and/or COPD change. - no significant leukocytosis, no anemia, viral PCR negative - EKG, initial showed SVT, rate 114, moderate ST depression, awaiting formal read. - initially 86% on room air despite nebulizer, now requiring BiPAP to maintain O2 saturation greater than 92%. Will continue and trial the patient off this evening. Suspect acute hypoxic respiratory failure secondary to COPD exacerbation, see below. (2) COPD exacerbation: Code(s): J44.1 - Chronic obstructive pulmonary disease with (acute) exacerbation Status: Acute Assessment and Plan: - Dusamibs tran - start Solu-Medrol 60 mg Q 6, initial loading dose of 125 mg - start ceftriaxone and azithromycin, 01/07 - continue Trelegy daily - supportive care - current smoker, interested in Chantix. 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 (3) Benign essential hypertension: Code(s): I10 - Essential (primary) hypertension Status: Chronic Assessment and Plan: - chronic, currently 124/53 - continue home medications: Atenolol, telmisartan - monitor Plan Patient with long history of smoking and now present shortness of breath and acute respiratory failure with hypoxia most likely patient has exacerbation of COPD patient is being treated with methylprednisone and Duo neb, patient is also treated with ceftriaxone azithromycin to cover for atypical pneumonia, patient states feeling much better compared to when she arrived, patient is quite anxious and this makes her breathing worse patient is being treated with Ativan as needed and will monitor, patient is seen by her helper marble finisher and switched to Augmentin, patient cardiac echo is pending, patient will have a PT OT evaluate the patient patient will benefit going to rehab before discharging home Diet: Heart healthy GI Prophylaxis: Not currently indicated DVT Prophylaxis: SCDs Lines: Peripheral Code Status: Full code Subjective Date/time seen: 01/10/25 15:27 Interval history: Patient with long history of smoking and now present shortness of breath and acute respiratory failure with hypoxia most likely patient has exacerbation of COPD patient is being treated with methylprednisone and Duo neb, patient is also treated with ceftriaxone azithromycin to cover for atypical pneumonia, patient states feeling much better compared to when she arrived, patient is quite anxious and this makes her breathing worse patient is being treated with Ativan as needed and will monitor, patient is seen by her helper marble finisher and switched to Augmentin, patient cardiac echo is pending, patient will have a PT OT evaluate the patient patient will benefit going to rehab before discharging home Review of Systems Review of Systems: All systems reviewed & are unremarkable except as noted in HPI and below Exam Narrative: Appears chronically Patient is comfortable, NAD HEENT: eyes are clear and none icteric LUNGS:CTA HEART: RR S1S2 ABD: BS+, Soft and nontender Lower extremities: no edema SKIN: nonjaundiced Neuro: grossly intact. Objective Data Vital Signs Vital Signs: Vital Signs - 24 hr 01/10/25 15:52 01/10/25 19:58 01/10/25 20:00 Temperature 36.5 C 36.4 C Pulse Rate 75 90 Respiratory Rate 20 22 H Blood Pressure 148/59 H 140/67 Pulse Oximetry 90 90 Oxygen Delivery Room Air 01/10/25 21:26 01/10/25 21:30 01/10/25 21:35 Temperature Pulse Rate 80 80 75 Respiratory Rate 20 20 Blood Pressure Pulse Oximetry 91 Oxygen Delivery Room Air 01/10/25 23:30 01/11/25 02:30 01/11/25 02:30 Temperature Pulse Rate 92 82 82 Respiratory Rate 23 H 20 23 H Blood Pressure Pulse Oximetry 94 92 Oxygen Delivery BiPAP 01/11/25 02:50 01/11/25 08:00 01/11/25 09:11 Temperature Pulse Rate 79 86 Respiratory Rate 21 H Blood Pressure Pulse Oximetry 91 Oxygen Delivery Room Air 01/11/25 09:25 01/11/25 09:25 01/11/25 09:33 Temperature Pulse Rate 80 86 Respiratory Rate 20 20 Blood Pressure Pulse Oximetry 91 Oxygen Delivery Room Air 01/11/25 14:00 Temperature 35.8 C L Pulse Rate 80 Respiratory Rate 18 Blood Pressure 137/66 Pulse Oximetry 94 Oxygen Delivery Intake/Output Intake/Output: Intake & Output 01/08/25 01/09/25 01/10/25 01/11/25 23:59 23:59 23:59 23:59 Intake Total 1210 1565 1620 600 Output Total 550 1200 Balance 709 027 6166 600 Meds/Results Medications: Active Medications Generic Name Dose Route Start Last Admin Trade Name Freq PRN Reason Stop Dose Admin Acetaminophen 500 mg 01/07/25 14:24 01/11/25 09:11 Acetaminophen 500 Mg Tablet PO 500 mg Q6H PRN Administration Mild Pain (1-3) or Fever Albuterol/Ipratropium 3 ml 01/07/25 20:00 01/11/25 09:24 Ipratropium 0.5 Mg/Albuterol Sulfate 2.5 Mg Ampul.Neb 3 Ml INHALATION 3 ml Q6HRT TRAN Administration Alprazolam 1 mg 01/07/25 22:05 01/10/25 20:52 Alprazolam (*Crx) 0.5 Mg Tablet PO 1 mg HS TRAN Administration Alprazolam 0.25 mg 01/09/25 12:26 01/09/25 12:43 Alprazolam (*Crx) 0.25 Mg Tablet PO 0.25 mg QID PRN Administration Anxiety Amoxicillin/Clavulanate Potassium 1 tablet 01/11/25 09:00 01/11/25 09:13 Amoxicillin/Clavulanate K 875-125 Mg Tab PO 01/13/25 21:01 1 tablet Q12HR TRAN Administration Aspirin 81 mg 01/08/25 09:00 01/11/25 09:13 Aspirin 81 Mg Enteric Tablet PO 81 mg DAILY TRAN Administration Atenolol 50 mg 01/07/25 21:20 01/11/25 09:11 Atenolol 50 Mg Tablet PO 50 mg Q12HR TRAN Administration Benzonatate 100 mg 01/07/25 14:24 01/08/25 20:50 Benzonatate 100 Mg Capsule PO 100 mg TID PRN Administration Cough Enoxaparin Sodium 40 mg 01/10/25 09:00 01/11/25 09:13 Enoxaparin 40 Mg/0.4 Ml Syringe SUB-Q 40 mg DAILY TRAN Administration Escitalopram Oxalate 20 mg 01/08/25 09:00 01/11/25 09:13 Escitalopram Oxalate 10 Mg Tablet PO 20 mg DAILY TRAN Administration Fluticasone/Umeclidinium/Vilanterol 1 puff 01/08/25 09:00 01/11/25 09:33 Fluticasone/Umeclidin/Vilanter 100-62.5-25 Mcg Ellipta INHALATION 1 puff DAILY TRAN Administration Guaifenesin 600 mg 01/07/25 21:00 01/11/25 09:13 Guaifenesin 12 Hr 600 Mg Tabcr PO 600 mg Q12HR TRAN Administration Methylprednisolone Sodium Succinate 60 mg 01/09/25 21:00 01/11/25 09:14 Methylprednisolone Sod Succ 125 Mg Vial IV PUSH 01/11/25 21:00 60 mg Q12HR TRAN Administration Methylprednisolone Sodium Succinate 60 mg 01/12/25 09:00 Methylprednisolone Sod Succ 125 Mg Vial IV PUSH DAILY TRAN Perflutren Lipid Microsphere 0 ml 01/08/25 16:12 Perflutren Lipid Microspheres 1.5 Ml Vial Diluted To 10 Ml Total Volume IV PUSH 01/11/25 16:13 ONCE PRN adequate visualization Protocol Perflutren Lipid Microsphere 0 ml 01/08/25 16:13 Perflutren Lipid Microspheres 1.5 Ml Vial Diluted To 10 Ml Total Volume IV PUSH 01/11/25 16:13 ONCE PRN adequate visualization Protocol Raloxifene HCl 60 mg 01/08/25 09:00 01/11/25 09:57 Raloxifene Hcl (*Chemo) 60 Mg Tablet PO 60 mg DAILY TRAN Administration Simvastatin 40 mg 01/07/25 21:20 01/10/25 20:53 Simvastatin 20 Mg Tablet PO 40 mg HS TRAN Administration Telmisartan 20 mg 01/07/25 21:20 01/11/25 09:57 Telmisartan 20 Mg Tablet PO 20 mg Q12HR TRAN Administration Vitamin D 1,000 units 01/08/25 09:00 01/11/25 09:13 Cholecalciferol 1,000 Units Tablet PO 1,000 units DAILY TRAN Administration Radiology Results: ITS Impressions Chest X-Ray 01/07/25 08:05 Impression: Bibasilar chronic interstitial disease and/or COPD change. Venous Doppler Study 01/09/25 15:24 IMPRESSION: 1: No lower extremity deep venous thrombosis. Labs Labs: Laboratory Results - last 24 hr 01/11/25 04:01 WBC 10.3 H RBC 4.00 L Hgb 12.2 Hct 37.0 MCV 92.5 MCH 30.5 MCHC 33.0 RDW 13.7 Plt Count 194 MPV 10.1 Immature Gran % (Auto) 0.9 H Neut % (Auto) 76.7 H Lymph % (Auto) 18.7 [place] % (Auto) 3.5 Eos % (Auto) 0.0 Baso % (Auto) 0.2 Lymph # (Auto) 1.92 [place] # (Auto) 0.4 Eos # (Auto) 0.0 Baso # (Auto) 0.0 Abs Immat Gran (auto) 0.09 H Absolute Neuts (auto) 7.9 H Absolute Nucleated RBC 0.000 Nucleated RBC % 0.0 Sodium 137 Potassium 3.6 Chloride 101 Carbon Dioxide 25 Anion Gap 11 BUN 25 H Creatinine 0.76 Estim Creat Clear Calc 42 Estimated GFR > 60 Glucose 137 H Calcium 8.6 Quality VTE Prophylaxis VTE prophylaxis: mechanical ordered
[2025-01-11] MEDS: SIMVASTATIN 20 MG TABLET 40 MG PO (21:54)
[2025-01-11] MEDS: ALPRAZolam (*CRX) 0.5 MG TABLET 1 MG PO (21:55)
[2025-01-12] VITALS (13 sets, daily range): BP systolic 145–149; BP diastolic 69–89; PULSE 71–106; RESP 16–29; TEMP 36.7–36.9; O2SAT 86–92
[2025-01-12] MEDS: IPRATROPIUM 0.5 MG/ALBUTEROL SULFATE 2.5 MG AMPUL.NEB 3 ML INHALATION ×2 (02:53→09:21)
[2025-01-12 06:41] LABS: Basophils Percent Auto 0.2 % (0.2-1.2); Hematocrit 36.5 % (37.0-47.0); Hemoglobin 12.2 g/dL (12.0-15.0); Immature Granulocyte Absolute 0.17 K/mm3 (0.00-0.031); Lymphocytes Absolute Auto 1.63 K/mm3 (0.9-3.2); Lymphocytes Percent Auto 19.3 % (18.3-44.2); Mean Corpuscular HGB Conc 33.4 g/dl (32-36); Mean Corpuscular Hemoglobin 30.3 pg (26-34); Mean Corpuscular Volume 90.8 fl (80-100); Mean Platelet Volume 9.8 fl (7.4-10.4); Monocytes Absolute Auto 0.3 K/mm3 (0.1-0.6); Monocytes Percent Auto 3.4 % (2.6-8.5); Neutrophils Absolute Auto 6.4 K/mm3 (1.3-6.7); Neutrophils Percent Auto 75.1 % (45.5-73.1); Platelet Count Result 196 k/mm3 (150-375); Red Blood Count 4.02 M/mm3 (4.2-5.4); Red Cell Distribution Width 13.4 % (11.5-14.5); White Blood Count 8.5 K/mm3 (4.5-10.0)
[2025-01-12 06:53] LABS: Anion Gap 5 mmol/L (4-12); Blood Urea Nitrogen 24 mg/dL (7-17); Calcium 8.4 mg/dL (8.4-10.2); Carbon Dioxide 30 mmol/L (22-30); Chloride 102 mmol/L (98-107); Estimated CRCL calculation 41 ml/min; Estimated Glomerular Filt Rate > 60; Glucose 132 mg/dL (65-110); Potassium 3.7 mmol/L (3.4-5.0); Sodium 137 mmol/L (137-145)
[2025-01-12] MEDS: AMOXICILLIN/CLAVULANATE K 875-125 MG TAB 1 TABLET PO (09:16)
[2025-01-12] MEDS: CHOLECALCIFEROL 1,000 UNITS TABLET 1000 UNITS PO (09:16)
[2025-01-12] MEDS: ESCITALOPRAM OXALATE 10 MG TABLET 20 MG PO (09:16)
[2025-01-12] MEDS: atenoloL 50 MG TABLET PO (09:17)
[2025-01-12] MEDS: ASPIRIN 81 MG ENTERIC TABLET PO (09:17)
[2025-01-12] MEDS: guaiFENesin 12 HR 600 MG TABCR PO (09:17)
[2025-01-12] MEDS: TELMISARTAN 20 MG TABLET PO (09:17)
[2025-01-12] MEDS: RALOXIFENE HCL (*CHEMO) 60 MG TABLET PO (09:17)
[2025-01-12] MEDS: ENOXAPARIN 40 MG/0.4 ML SYRINGE SUB-Q (09:20)
[2025-01-12] MEDS: methylPREDNISolone SOD SUCC 125 MG VIAL 60 MG IV PUSH (09:21)
[2025-01-12] MEDS: FLUTICASONE/UMECLIDIN/VILANTER 100-62.5-25 MCG ELLIPTA 1 PUFF INHALATION (09:21)
--- NOTE | 2025-01-12 09:36 | PM.PNPUL ---
Progress Note: A&P Assessment and Plan (1) Emphysema of lung: Qualifiers: Emphysema type: unspecified Qualified Code(s): J43.9 - Emphysema, unspecified Code(s): J43.9 - Emphysema, unspecified Status: Acute (2) COPD exacerbation: Code(s): J44.1 - Chronic obstructive pulmonary disease with (acute) exacerbation Status: Acute Assessment and Plan: This patient, with a known history of moderate obstructive airway disease and previous exacerbations, on maintenance bronchodilators, presented with severe shortness of breath. She experienced acute metabolic acidosis, likely due to elevated lactic acid levels, and severe hypoxemia without hypercapnia, all of which are related to another COPD exacerbation triggered by an upper respiratory infection. The patient has responded well to treatment, which includes BiPAP support, short-acting bronchodilators, IV steroids, and antibiotics. Over the past 24 hours, her respiratory condition has remained stable and has shown improvement. She has no expiratory wheezing this a.m. Plan: The patient is cleared for discharge to home. A home oxygen evaluation is necessary, as her oxygen saturation on room air is at the low normal range. It is anticipated that she will require temporary supplemental oxygen during activities and at night. Medication and Treatment Plan: Prednisone Tapering Regimen: 40 mg daily for 4 days 30 mg daily for 4 days 20 mg daily for 4 days 10 mg daily for 4 days Maintenance Bronchodilator: Continue Trelegy once daily. Nebulized Treatment:Start nebulized albuterol every 6 hours at home. A nebulizer will be needed for home use. Additional Medication: Begin Daliresp 250 mg orally once daily, due to the frequent history of COPD exacerbations. The patient is advised to follow up with her data center [facility] 2 [facility]. Please feel free to contact me with any questions. (3) Cigarette smoker: Code(s): F17.210 - Nicotine dependence, cigarettes, uncomplicated Status: Acute (4) Acute hypoxic respiratory failure: Code(s): J96.01 - Acute respiratory failure with hypoxia Status: Acute Subjective Date/time seen: 01/12/25 09:36 Interval history: Patient stated she is doing better. Remains on room air. Still experiencing some shortness of breath when ambulating in room to use the bathroom. She gets panicky with walking in the room. She has no wheezing or any other respiratory symptoms. She is now able to take deep breath with no problems. She used BiPAP support last night. Review of Systems Review of Systems: All systems reviewed & are unremarkable except as noted in HPI and below (HPI and below) Exam Narrative: GENERAL APPEARANCE: Well developed, well nourished, alert and cooperative, and appears to be in no acute distress while on supplemental oxygen via nasal cannula SKIN: Inspection of the skin reveals no rashes, ulcerations or petechiae. HEENT: Sclerae anicteric and conjunctivae pink and moist. Extraocular movements were intact and pupils were equal, round, and reactive to light. The oral mucosa, hard and soft palate, tongue and posterior pharynx were normal. NECK: Supple. There was no thyroid enlargement, and no tenderness, or masses were felt. CHEST: Normal AP diameter and normal contour without any kyphoscoliosis. LUNGS: Distant breath sounds bilaterally. No expiratory wheezing CARDIAC: There was a regular rate and rhythm without any murmurs, gallops, rubs. ABDOMEN: Soft and nontender with normal bowel sounds. There was no organomegaly. LYMPH NODES: No lymphadenopathy was appreciated in the neck. EXTREMITIES: No cyanosis, clubbing or edema. NEUROLOGIC: Alert and oriented x 3. Normal affect. Objective Data Vital Signs Vital Signs: Vital Signs - 24 hr 01/11/25 14:00 01/11/25 21:04 01/11/25 21:09 Temperature 35.8 C L 36.9 C Pulse Rate 80 73 72 Respiratory Rate 18 18 18 Blood Pressure 137/66 157/79 H Pulse Oximetry 94 93 Oxygen Delivery 01/11/25 21:15 01/11/25 21:48 01/11/25 21:54 Temperature Pulse Rate 77 72 Respiratory Rate 18 Blood Pressure Pulse Oximetry Oxygen Delivery Room Air 01/12/25 02:53 01/12/25 02:53 01/12/25 03:00 Temperature Pulse Rate 71 81 75 Respiratory Rate 29 H 18 18 Blood Pressure Pulse Oximetry 92 Oxygen Delivery BiPAP 01/12/25 04:29 01/12/25 09:17 01/12/25 09:22 Temperature 36.7 C Pulse Rate 98 91 71 Respiratory Rate 18 20 Blood Pressure 145/89 H Pulse Oximetry 90 91 Oxygen Delivery Room Air 01/12/25 09:22 01/12/25 09:34 Temperature Pulse Rate 71 75 Respiratory Rate 20 20 Blood Pressure Pulse Oximetry Oxygen Delivery Intake/Output Intake/Output: Intake & Output 01/09/25 01/10/25 01/11/25 01/12/25 23:59 23:59 23:59 23:59 Intake Total 1565 1620 840 300 Output Total 1200 Balance 365 1620 840 300 Meds/Results Medications: Active Medications Generic Name Dose Route Start Last Admin Trade Name Freq PRN Reason Stop Dose Admin Acetaminophen 500 mg 01/07/25 14:24 01/11/25 09:11 Acetaminophen 500 Mg Tablet PO 500 mg Q6H PRN Administration Mild Pain (1-3) or Fever Albuterol/Ipratropium 3 ml 01/07/25 20:00 01/12/25 09:21 Ipratropium 0.5 Mg/Albuterol Sulfate 2.5 Mg Ampul.Neb 3 Ml INHALATION 3 ml Q6HRT MARCELINO Administration Alprazolam 1 mg 01/07/25 22:05 01/11/25 21:55 Alprazolam (*Crx) 0.5 Mg Tablet PO 1 mg HS MARCELINO Administration Alprazolam 0.25 mg 01/09/25 12:26 01/09/25 12:43 Alprazolam (*Crx) 0.25 Mg Tablet PO 0.25 mg QID PRN Administration Anxiety Amoxicillin/Clavulanate Potassium 1 tablet 01/11/25 09:00 01/12/25 09:16 Amoxicillin/Clavulanate K 875-125 Mg Tab PO 01/13/25 21:01 1 tablet Q12HR MARCELINO Administration Aspirin 81 mg 01/08/25 09:00 01/12/25 09:17 Aspirin 81 Mg Enteric Tablet PO 81 mg DAILY MARCELINO Administration Atenolol 50 mg 01/07/25 21:20 01/12/25 09:17 Atenolol 50 Mg Tablet PO 50 mg Q12HR MARCELINO Administration Benzonatate 100 mg 01/07/25 14:24 01/08/25 20:50 Benzonatate 100 Mg Capsule PO 100 mg TID PRN Administration Cough Enoxaparin Sodium 40 mg 01/10/25 09:00 01/12/25 09:20 Enoxaparin 40 Mg/0.4 Ml Syringe SUB-Q 40 mg DAILY MARCELINO Administration Escitalopram Oxalate 20 mg 01/08/25 09:00 01/12/25 09:16 Escitalopram Oxalate 10 Mg Tablet PO 20 mg DAILY MARCELINO Administration Fluticasone/Umeclidinium/Vilanterol 1 puff 01/08/25 09:00 01/12/25 09:21 Fluticasone/Umeclidin/Vilanter 100-62.5-25 Mcg Ellipta INHALATION 1 puff DAILY MARCELINO Administration Guaifenesin 600 mg 01/07/25 21:00 01/12/25 09:17 Guaifenesin 12 Hr 600 Mg Tabcr PO 600 mg Q12HR MARCELINO Administration Methylprednisolone Sodium Succinate 60 mg 01/12/25 09:00 01/12/25 09:21 Methylprednisolone Sod Succ 125 Mg Vial IV PUSH 60 mg DAILY MARCELINO Administration Raloxifene HCl 60 mg 01/08/25 09:00 01/12/25 09:17 Raloxifene Hcl (*Chemo) 60 Mg Tablet PO 60 mg DAILY MARCELINO Administration Simvastatin 40 mg 01/07/25 21:20 01/11/25 21:54 Simvastatin 20 Mg Tablet PO 40 mg HS MARCELINO Administration Telmisartan 20 mg 01/07/25 21:20 01/12/25 09:17 Telmisartan 20 Mg Tablet PO 20 mg Q12HR MARCELINO Administration Vitamin D 1,000 units 01/08/25 09:00 01/12/25 09:16 Cholecalciferol 1,000 Units Tablet PO 1,000 units DAILY MARCELINO Administration Radiology Results: ITS Impressions Chest X-Ray 01/07/25 08:05 Impression: Bibasilar chronic interstitial disease and/or COPD change. Venous Doppler Study 01/09/25 15:24 IMPRESSION: 1: No lower extremity deep venous thrombosis. Labs Labs: Laboratory Results - last 24 hr 01/12/25 06:09 WBC 8.5 RBC 4.02 L Hgb 12.2 Hct 36.5 L MCV 90.8 MCH 30.3 MCHC 33.4 RDW 13.4 Plt Count 196 MPV 9.8 Immature Gran % (Auto) 2.0 H Neut % (Auto) 75.1 H Lymph % (Auto) 19.3 [place] % (Auto) 3.4 Eos % (Auto) 0.0 Baso % (Auto) 0.2 Lymph # (Auto) 1.63 [place] # (Auto) 0.3 Eos # (Auto) 0.0 Baso # (Auto) 0.0 Abs Immat Gran (auto) 0.17 H Absolute Neuts (auto) 6.4 Absolute Nucleated RBC 0.000 Nucleated RBC % 0.0 Sodium 137 Potassium 3.7 Chloride 102 Carbon Dioxide 30 Anion Gap 5 BUN 24 H Creatinine 0.78 Estim Creat Clear Calc 41 Estimated GFR > 60 Glucose 132 H Calcium 8.4
--- NOTE | 2025-01-12 13:59 | PM.DS ---
DS: Admitting Diagnosis Discharge Date 01/12/25 Admitting Diagnosis Shortness of Breath DS: Discharge Diagnosis Discharge Diagnosis (1) Acute hypoxic respiratory failure: Code(s): J96.01 - Acute respiratory failure with hypoxia Status: Acute Assessment and Plan: - CXR: Bibasilar chronic interstitial disease and/or COPD change. - no significant leukocytosis, no anemia, viral PCR negative - EKG, initial showed SVT, rate 114, moderate ST depression, awaiting formal read. - initially 86% on room air despite nebulizer, now requiring BiPAP to maintain O2 saturation greater than 92%. Will continue and trial the patient off this evening. Suspect acute hypoxic respiratory failure secondary to COPD exacerbation, see below. (2) COPD exacerbation: Code(s): J44.1 - Chronic obstructive pulmonary disease with (acute) exacerbation Status: Acute Assessment and Plan: - Duonebs tran - start Solu-Medrol 60 mg Q 6, initial loading dose of 125 mg - start ceftriaxone and azithromycin, / - continue Trelegy daily - supportive care - current smoker, interested in Chantix. 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 (3) Benign essential hypertension: Code(s): I10 - Essential (primary) hypertension Status: Chronic Assessment and Plan: - chronic, currently 124/53 - continue home medications: Atenolol, telmisartan - monitor DS: Summary Hospital Course Hospital Course: Patient with long history of smoking and now present shortness of breath and acute respiratory failure with hypoxia most likely patient has exacerbation of COPD patient is being treated with methylprednisone and Duo neb, patient is also treated with ceftriaxone azithromycin to cover for atypical pneumonia, patient states feeling much better compared to when she arrived, patient is quite anxious and this makes her breathing worse patient is being treated with Ativan as needed and will monitor, patient is seen by her digital project manager and switched to Augmentin, patient cardiac echo is essentially normal, patient clinical symptoms have improved, will discharge patient today. Diet: Heart healthy GI Prophylaxis: Not currently indicated Time Spent with Patient Time attestation: Total time spent providing and/or coordinating discharge services: Exam Narrative: Appears chronically Patient is comfortable, NAD HEENT: eyes are clear and none icteric LUNGS:CTA HEART: RR S1S2 ABD: BS+, Soft and nontender Lower extremities: no edema SKIN: nonjaundiced Neuro: grossly intact. DS: Data Data Completed and Pending Labs on day of discharge: Labs from last 24 hours 01/12/25 06:09 WBC 8.5 RBC 4.02 L Hgb 12.2 Hct 36.5 L MCV 90.8 MCH 30.3 MCHC 33.4 RDW 13.4 Plt Count 196 MPV 9.8 Immature Gran % (Auto) 2.0 H Neut % (Auto) 75.1 H Lymph % (Auto) 19.3 [place] % (Auto) 3.4 Eos % (Auto) 0.0 Baso % (Auto) 0.2 Lymph # (Auto) 1.63 [place] # (Auto) 0.3 Eos # (Auto) 0.0 Baso # (Auto) 0.0 Abs Immat Gran (auto) 0.17 H Absolute Neuts (auto) 6.4 Absolute Nucleated RBC 0.000 Nucleated RBC % 0.0 Sodium 137 Potassium 3.7 Chloride 102 Carbon Dioxide 30 Anion Gap 5 BUN 24 H Creatinine 0.78 Estim Creat Clear Calc 41 Estimated GFR > 60 Glucose 132 H Calcium 8.4 Preliminary micro results at discharge 01/07/25 12:45 Blood Culture - Preliminary Blood 01/07/25 12:50 Blood Culture - Preliminary Blood Discharge Plan Discharge Attending physician on discharge: Zachary Alonzo Consulting providers: Stiven Morse; Avel Abrams; Paz Peres; Shai Woods; Dimple Lorenzo; [place] Roland; Sadi Priest Discharging Clinician: Zachary Alonzo Patient Disposition: Home, Self-Care Activity: as tolerated Diet: heart healthy Patient Language: Macedonian Discharge Medications: New ipratropium-albuterol 0.5 mg-3 mg(2.5 mg base)/3 mL Solution For Nebulization 3 ml inhalation Q6HRT Qty: 90 0RF benzonatate 100 mg Capsule 100 mg PO TID PRN (Reason: Cough) Qty: 30 0RF guaifenesin [Mucus Relief ER] 600 mg Tablet Extended Release 12hr 600 mg PO Q12HR Qty: 60 0RF prednisone 10 mg tablet 10 mg PO DAILY Qty: 40 0RF Rx Instructions: 4Tx4d, 3Tx4d, 2Tx4d, 1Tx4d. roflumilast [Daliresp] 250 mcg tablet 250 mcg PO DAILY 28 Days Qty: 28 0RF Continued cholecalciferol (vitamin D3) 25 mcg (1,000 unit) capsule 25 mcg PO DAILY doxycycline hyclate 100 mg tablet 100 mg PO DAILY Qty: 7 0RF aspirin [Adult Low Dose Aspirin] 81 mg tablet,delayed release (DR/EC) 81 mg PO DAILY albuterol sulfate 90 mcg/actuation HFA aerosol inhaler 2 inh inhalation Q4H PRN (Reason: shortness of breath or wheezing) Qty: 8.5 2RF Trelegy Ellipta 100-62.5-25 mcg blister with device 1 inh inhalation DAILY alprazolam 1 mg tablet 1 mg PO HS telmisartan 20 mg tablet See Rx Instructions .ROUTE .COMPLEX Qty: 180 2RF Dose Instruction: TAKE 1 TABLET BY MOUTH TWICE A DAY Rx Instructions: TAKE 1 TABLET BY MOUTH TWICE A DAY Trelegy Ellipta 100-62.5-25 mcg blister with device 1 inh inhalation DAILY Qty: 60 5RF simvastatin 40 mg tablet See Rx Instructions .ROUTE .COMPLEX Qty: 90 2RF Dose Instruction: TAKE 1 TABLET BY MOUTH EVERY DAY AT NIGHT Rx Instructions: TAKE 1 TABLET BY MOUTH EVERY DAY AT NIGHT atenolol 50 mg tablet See Rx Instructions .ROUTE .COMPLEX Qty: 180 1RF Dose Instruction: TAKE 1 TABLET BY MOUTH TWICE A DAY Rx Instructions: TAKE 1 TABLET BY MOUTH TWICE A DAY raloxifene 60 mg tablet See Rx Instructions .ROUTE .COMPLEX Qty: 100 3RF Dose Instruction: TAKE 1 TABLET BY MOUTH EVERY DAY Rx Instructions: TAKE 1 TABLET BY MOUTH EVERY DAY escitalopram oxalate 20 mg tablet 20 mg PO DAILY Qty: 90 1RF Date of admission: 01/08/25 16:20 Primary Care Provider: Jeffrey Ruano Admitting Provider: Zachary Alonzo Attending physician on admission: Zachary Alonzo Condition: Serious
--- NOTE | 2025-01-12 15:49 | PCRCNOTE ---
Window of time for administration has passed. See next scheduled administration.
--- NOTE | 2025-01-12 16:03 | PCRCNOTE ---
Home O2 eval done, 2 liters with activity. set up with iv resp care
== END 2025-01-12 17:00 | disposition home or self-care (01) | DRG 190 ==
LOC: ANHED 12:41 → ANHIMU 15:27 → ANH3MEDSUR 01-11 05:26
PROVIDERS: Student in an Organized Health Care Education/Training Program; Admitting Provider Family Medicine; Emergency Provider Emergency Medicine; PCP Family Medicine; Visit Provider Family Medicine
DX: J44.1 Chronic obstructive pulmonary disease with (acute) exacerbation (principal); J96.01 Acute respiratory failure with hypoxia; I47.19 Other supraventricular tachycardia; E55.9 Vitamin D deficiency, unspecified; E78.2 Mixed hyperlipidemia; E78.5 Hyperlipidemia, unspecified; F17.210 Nicotine dependence, cigarettes, uncomplicated; F41.9 Anxiety disorder, unspecified; F32.A Depression, unspecified; I25.2 Old myocardial infarction; I10 Essential (primary) hypertension; I25.10 Atherosclerotic heart disease of native coronary artery without angina pectoris; J43.2 Centrilobular emphysema; J43.9 Emphysema, unspecified; Z79.82 Long term (current) use of aspirin; Z20.822 Contact with and (suspected) exposure to COVID-19; Z96.641 Presence of right artificial hip joint
CPT/HCPCS: 36415; 36600; 71045; 80048; 80053; 81001; 82375; 82805; 83050; 85018; 85025; 85027; 85610; 85730; 87040; 87637; 93005; 93306; 93970; 94002; 94003; 94618; 94640; 96365; 96367; 96375; 97110; 97116; 97161; 97165; 97530; 97535; 99285; A9270; G0378; J0456; J0696; J1650; J1940; J2060; J2919

== ENCOUNTER 2025-06-22 12:57 | Outpatient (CLI) | payer OTHER, SELFPAY ==
[2025-06-22 13:00] VITALS: PULSE 82; O2SAT 95
[2025-06-22 13:05] VITALS: PULSE 99; O2SAT 93
--- OUTSIDE RECORDS SUMMARY | 2025-06-22 13:09 | XMS_ITS | Clinical Summary ---
Author Organization [facility] Address [address] [place] [address] Care Team Providers Care Glassine Machine Tender Name Role Phone Abbi Montes MD Primary [...] (08/22/2019): Added automatically from request for surgery [id number] Immunizations Immunization Administration Dates Next Due Influenza, [...] on file Legal Sex Female 11:57 PM [employer] Gender Identity Not on file Sexual Orientation Not on file Obstetrics History Last Filed Vital Signs Vital Sign Reading Time Taken Comments Blood Pressure 146/80 10/21/2019 12:02 PM [employer] Pulse 64 10/21/2019 12:02 PM [employer] Temperature 36.9 C (98.5 F) 10/21/2019 12:02 PM [employer] Respiratory Rate 16 10/21/2019 12:02 PM [employer] P[employer] Oxygen Saturation 98% 10/21/2019 12:02 PM [employer] Inhaled Oxygen Concentration - - Weight 59 kg (130 lb) 10/03/2019 12:50 PM [employer] Height 62 cm (2' 0.41) 10/03/2019 12:50 PM [employer] Body Mass Index 153.39 10/03/2019 12:50 PM [employer] P[employer] Plan of Treatment Not on file Medical Devices Implanted Type Area Environmental Remediation Specialist Device Identifier Shelf Expiration Date Model / Serial / Lot [employer] [id number] 54mm Limit 4 Hole Hip F Hemisphere Offset Shell Acetabular - [id number] Implanted:Qty: 1 on 09/28/2019 by Ezekiel Vega MD at [facility] Right: Hip [employer] [id number] 02/13/2029 [id number] / / [id number] [employer] [id number] Trilogy 6.5mm 40mm Self Tap Hip Acetabular Cortical Screw Bone - [id number] Implanted:Qty: 1 on 09/28/2019 by Ezekiel Vega MD at [facility] Right: Hip [employer] [id number] 05/25/2029 [id number] / / [id number] [employer] [id number] Trilogy 6.5mm 20mm Self Tap Screw Bone - [id number] Implanted:Qty: 1 on 09/28/2019 by Ezekiel Vega MD at [facility] Right: Hip [employer] [id number] 01/23/2025 [id number] / / [id number] [employer] [id number] Trilogy 6.5mm 25mm Self Tap Screw Bone - [id number] Implanted:Qty: 1 on 09/28/2019 by Ezekiel Vega MD at [facility] Right: Hip [employer] [id number] 01/23/2025 [id number] / / [id number] [employer] [id number] 44mm 2 Mobility Hip F Liner Acetabular - [id number] Implanted:Qty: 1 on 09/28/2019 by Ezekiel Vega MD at [facility] Right: Hip [employer] [id number] 08/11/2029 [id number] / / [id number] [employer] [id number] Phillips Sl Revision 14mm 265mm Distal Fill Hip 135d 10/08 Stem - [id number] Implanted:Qty: 1 on 09/28/2019 by Ezekiel Vega MD at [facility] Right: Hip [employer] [id number] 06/25/2023 [id number] / / [id number] [employer] [id number] Trilogy It Continuum 28mm Hip Acetabulum -3.5mm 10/08 Small Head - [id number] Implanted:Qty: 1 on 09/28/2019 by Ezekiel Vega MD at [facility] Right: Hip [employer] [id number] 04/24/2029 [id number] / / [id number] [employer] [id number] Active Articulation 44mm Bearing Hip Arcomxl Sterile 28mm Modular - [id number] Implanted:Qty: 1 on 09/28/2019 by Ezekiel Vega MD at [facility] Right: Hip [employer] [id number] 05/23/2024 [id number] / / [id number] Insurance [facility] [place] [address] [facility] Advance Directives For more information, please contact: [phone] * Full Code (Latest Code Status on File) Date Activated Date Inactivated Comments 09/28/2019 9:32 PM 10/01/2019 10:35 PM Care Teams Glassine Machine Tender Relationship Specialty Start Date End Date Abbi Montes MD [address] [facility] [address] [place] [address] PCP - General Family Medicine 07/21/19
[2025-06-22 13:20] VITALS: PULSE 95; O2SAT 96
== END 2025-06-22 12:58 | disposition home or self-care (01) ==
PROVIDERS: PCP Family Medicine; Visit Provider Physician Assistant
DX: J96.91 Respiratory failure, unspecified with hypoxia (principal)
CPT/HCPCS: 94618

== ENCOUNTER 2025-07-07 15:33 | Outpatient (CLI) | payer OTHER, SELFPAY ==
--- OUTSIDE RECORDS SUMMARY | 2000-03-09 04:15 | XMS_ITS | Continuity of Care Document ---
Author Organization [facility] Address [id number] [place] [address] [address] [place] [address] Phone Care Team Providers Care Supervisor Laboratory Animal Facility Name Role Phone Ryansy, Edward Unavailable Unavailable Advance Directives Directive Yes / No Effective Date File Name No Information Encounters Encounter Description Practice Location Reason(s) For Visit Diagnoses Date Provider Providers Copied on Encounter [facility], [address], [place], [place], [id number], [place] tel:[phone] [facility] [place] No Information February- 5-200 0 Doisy Edward. [address] [facility] , [address], [place], [address], [place]. tel:[phone] Family History Family Member Type Diagnosis Age At Onset No Information Payers Payer name Insurance type Covered democrat ID Authoriza tion(s) No Information Social History Type Description Quantity Date Captured Comments Sex Female Smoking Status No Information Chief Complaint And Reason For Visit No Information Reason For Referral Reason For Referral No Information History Of Present Illness Encounter Date Complaint History Of Prese nt Illness No Information Functional Status Date Functional Assessmen t No Information Instructions Date Instruction Additional Infor mation No Information Assessments Type Assessment Date No Information Patient Care Teams Name Effective Dates (start - stop) Status Members No Information
--- NOTE | ~2025-07-07 | CT_ITS ---
EXAMINATION:CT diagnostic chest wo con DATE: 07/07/2025 16:07 INDICATION: Solitary pulmonary nodule. TECHNIQUE: Computed tomography (CT) of the chest was performed without intravenous contrast. Automated exposure control and iterative reconstruction technique were employed. The dose-length product (DLP) was 153.83 mGy-cm. COMPARISON: Chest CT 06/16/2024 FINDINGS: There is severe emphysema. There is mild scarring at the lung apices. There is mild atelectasis bilaterally. There is a stable 5 mm nodule in right upper lobe, likely benign. No pleural effusion. There is left atrial enlargement of the heart. There is lipomatous hypertrophy of the interatrial septum. There are coronary artery calcifications. No pericardial effusion. There are breast implants bilaterally. There are cysts in the liver measuring up to 3.0 cm. There is a 1.6 cm mass in right adrenal gland measuring low attenuation, consistent with an adenoma. There is thoracic kyphosis and severe spondylosis. There is a chronic compression fracture of T7. IMPRESSION: 1. Severe emphysema. Reviewed, dictated and finalized at location E. IMPRESSION: 1. Severe emphysema.
--- OUTSIDE RECORDS SUMMARY | 2025-07-07 16:02 | XMS_ITS | Clinical Summary ---
Author Organization [facility] Address [address] [place] [address] Care Team Providers Care Sales And Retail Management Recruiter Name Role Phone Abbi Montes MD Primary [...] (08/22/2019): Added automatically from request for surgery [id number] Immunizations Immunization Administration Dates Next Due Influenza, [...] on file Legal Sex Female 11:57 PM RN ADVICE Gender Identity Not on file Sexual Orientation Not on file Obstetrics History Last Filed Vital Signs Vital Sign Reading Time Taken Comments Blood Pressure 146/80 10/21/2019 12:02 PM RN ADVICE Pulse 64 10/21/2019 12:02 PM RN ADVICE Temperature 36.9 C (98.5 F) 10/21/2019 12:02 PM RN ADVICE Respiratory Rate 16 10/21/2019 12:02 PM RN ADVICE Oxygen Saturation 98% 10/21/2019 12:02 PM RN ADVICE Inhaled Oxygen Concentration - - Weight 59 kg (130 lb) 10/03/2019 12:50 PM RN ADVICE Height 62 cm (2' 0.41) 10/03/2019 12:50 PM RN ADVICE Body Mass Index 153.39 10/03/2019 12:50 PM RN ADVICE Plan of Treatment Not on file Medical Devices Implanted Type Area Volunteer Recruitment Coordinator Device Identifier Shelf Expiration Date Model / Serial / Lot [employer] [id number] [id number] 54mm Limit 4 Hole Hip F Hemisphere Offset Shell Acetabular - [id number] Implanted:Qty: 1 on 09/28/2019 by Ezekiel Vega MD at [facility] Right: Hip [employer] [id number] 02/13/2029 [id number] / / [id number] [employer] [id number] Trilogy 6.5mm 40mm Self Tap Hip Acetabular Cortical Screw Bone - [id number] Implanted:Qty: 1 on 09/28/2019 by Ezekiel Vega MD at [facility] Right: Hip [employer] [id number] 05/25/2029 [id number] / / [id number] [employer] [id number] Trilogy 6.5mm 20mm Self Tap Screw Bone - [id number] Implanted:Qty: 1 on 09/28/2019 by Ezekiel Vega MD at [facility] Right: Hip [employer] [id number] 01/23/2025 [id number] / / [id number] [employer] [id number] Trilogy 6.5mm 25mm Self Tap Screw Bone - [id number] Implanted:Qty: 1 on 09/28/2019 by Ezekiel Vega MD at [facility] Right: Hip [employer] [id number] 01/23/2025 [id number] / / [id number] [employer] [id number] G7 44mm 2 Mobility Hip F Liner Acetabular - [id number] Implanted:Qty: 1 on 09/28/2019 by Ezekiel Vega MD at [facility] Right: Hip [employer] [id number] 08/11/2029 [id number] / / [id number] [employer] [id number] Phillips Sl Revision 14mm 265mm Distal Fill Hip 135d 10/08 Stem - [id number] Implanted:Qty: 1 on 09/28/2019 by Ezekiel Vega MD at [facility] Right: Hip [employer] [id number] 06/25/2023 [id number] / / [id number] [employer] [id number] Trilogy It Continuum 28mm Hip Acetabulum -3.5mm 10/08 Small Head - [id number] Implanted:Qty: 1 on 09/28/2019 by Ezekiel Vega MD at [facility] Right: Hip [employer] [id number] 04/24/2029 [id number] / / [id number] [employer] [id number]-[id number] Active Articulation 44mm Bearing Hip Arcomxl Sterile 28mm Modular - [id number] Implanted:Qty: 1 on 09/28/2019 by Ezekiel Vega MD at [facility] Right: Hip [employer] [id number] 05/23/2024 [id number] / / [id number] Insurance [facility] [place] [address] [facility] Advance Directives For more information, please contact: [phone] * Full Code (Latest Code Status on File) Date Activated Date Inactivated Comments 09/28/2019 9:32 PM 10/01/2019 10:35 PM Care Teams Sales And Retail Management Recruiter Relationship Specialty Start Date End Date Abbi Montes MD [address] [facility] [address] [place] [address] PCP - General Family Medicine 07/21/19
== END 2025-07-07 15:34 | disposition home or self-care (01) ==
PROVIDERS: PCP Family Medicine; Visit Provider Physician Assistant
DX: R91.1 Solitary pulmonary nodule (principal); J43.9 Emphysema, unspecified
CPT/HCPCS: 71250

== ENCOUNTER 2025-10-04 10:59 | Outpatient (CLI) | payer OTHER, SELFPAY ==
[2025-10-04 11:20] LABS: Hematocrit 43.5 % (37.0-47.0); Hemoglobin 14.1 g/dL (12.0-15.0); Immature Granulocyte Percent A 0.6 % (0-0.5); Lymphocytes Absolute Auto 3.12 K/mm3 (0.9-3.2); Mean Corpuscular HGB Conc 32.4 g/dl (32-36); Mean Corpuscular Hemoglobin 30.3 pg (26-34); Mean Corpuscular Volume 93.5 fl (80-100); Nucleated Red Blood Cells Absolute Auto 0.000 K/mm3 (0.0-0.012); Nucleated Red Blood Cells Perc 0.0 % (0.0-0.2); Platelet Count Result 205 k/mm3 (150-375); Red Blood Count 4.65 M/mm3 (4.2-5.4); White Blood Count 8.2 K/mm3 (4.5-10.0)
[2025-10-04 11:37] LABS: Alanine Aminotransferase 18 U/L (6-35); Albumin Level 4.1 g/dL (3.5-5.1); Alkaline Phosphatase 74 U/L (38-126); Anion Gap 4 mmol/L (4-12); Aspartate Amino Transferase 30 U/L (14-36); Bilirubin,Total 0.5 mg/dL (0.2-1.3); Blood Urea Nitrogen 13 mg/dL (7-17); Calcium 9.2 mg/dL (8.4-10.2); Carbon Dioxide 28 mmol/L (22-30); Chloride 106 mmol/L (98-107); Cholesterol 175 mg/dL (0-200); Estimated Glomerular Filt Rate 58; Glucose 104 mg/dL (65-110); HDL Direct 62 mg/dL; Potassium 4.7 mmol/L (3.4-5.0); Sodium 138 mmol/L (137-145); Total Protein 7.0 g/dL (6.3-8.2); Triglycerides 227 mg/dL (<150)
[2025-10-04 11:45] LABS: Hemoglobin A1C 5.7 % (<5.7)
== END 2025-10-04 11:00 | disposition home or self-care (01) ==
PROVIDERS: PCP Family Medicine; Referring Provider Physician Assistant; Visit Provider Student in an Organized Health Care Education/Training Program
DX: R73.09 Other abnormal glucose (principal); I10 Essential (primary) hypertension; E78.5 Hyperlipidemia, unspecified
CPT/HCPCS: 36415; 80053; 80061; 83036; 85025